=== PATIENT | female | born 1950 | race Caucasian/White ===

== ENCOUNTER → 2016-11-29 | Day surgery (SDC) | payer OTHER ==
[~2016-11-29] VITALS: Ht 175.3 cm; Wt 117.9 kg
[~2016-11-29] MED LIST: ACETAMINOPHEN-1 EAC3 PO; ATORVASTATIN CA10 M1 PO; ATORVASTATIN CA10 MG PO; AUGMENTIN 500-1 EACH PO; CALCIUM + D 6001 TAB PO; CALCIUM 500 +1 EAC5 PO; CIPROFLOXACIN500 M2 PO; EPIPEN0.3 MG/0.1 IM; IPRATROPIU0.2 MG/1 M INH; MELOXICAM7.5 M1 PO; MELOXICAM7.5 MG PO; OMEPRAZOLE40 M1 PO; OMEPRAZOLE40 MG PO; PREDNISONE50 MG PO; PROAIR HFA0.09 MG/Ac PO; PROAIR HFA8.5 GM INH; SYMBICORT 16010.2 GM INH; TYLENOL #31 TAB PO; VANCO 1 GR1 GM/250 M IV; VITAMIN C1000 M1 PO; VITAMIN C250 M3 PO
--- NOTE | 2016-11-29 19:03 | Operative Report ---
Operative/Inv Procedure Report Surgery Date: 11/29/16 Name of Procedure: Debridement and skin graft to his left leg with application of wound VAC wounds and wound VAC approximately 20 cm biopsy soft tissue separate and distinct to rule out the presence of malignancy Pre-Operative Diagnosis: Chronic open wound secondary to venous insufficiency Post-Operative Diagnosis: Same Estimated Blood Loss: scant Surgeon/Favor Maker: CHICO RODRIGUES,LORRIE Morgan Anesthesia: moderate sedation Operative/Procedure Note Note: The patient was counseled in regards to the procedure the alternatives the risks and expected outcomes as relates to her request for surgical intervention to skin graft to chronic wounds of the left lower extremity. We talked about the risk of infection bleeding pain and numbness and partial complete loss of the graft. We talked about donor site complications as well. Patient was taken to the operating room placed supine on the table. Intravenous sedation and antibiotics were given. The left lower extremity was prepped and draped in usual sterile fashion. Full-thickness debridement around the 2 wounds the left anterior and left medial malleoli region was debrided to anterior lesion down to periosteum without evidence of purulence or overt necrosis. This was curettaged free of the cavity tissues. A drill excision was then carried out of the wound of the left anterior leg. At some points a concern for malignancy was identified and a portion of the wound bed was sent for frozen section analysis is the type of granulation tissue could be consistent with a malignancy. It was negative. Developed left medial malleoli wound which had a dense fibrotic base but was debrided down to punctate bleeding. Was harvested from the left anterior thigh and meshed and placed in the wound bed and fixed with a VAC device.
== END ==
LOC: STS 03:12
DX: I87.2 Venous insufficiency (chronic) (peripheral) (principal); L97.329 Non-pressure chronic ulcer of left ankle with unspecified severity; J45.909 Unspecified asthma, uncomplicated; K21.9 Gastro-esophageal reflux disease without esophagitis; M17.0 Bilateral primary osteoarthritis of knee; Z87.891 Personal history of nicotine dependence
CPT/HCPCS: 88304; J0131; J1100; J2250; J2405

== ENCOUNTER 2016-11-30 16:25 | Emergency (ER) | payer OTHER ==
[~2016-11-30] VITALS: Ht 175.3 cm; Wt 117.9 kg
[~2016-11-30 16:25] MED LIST changes: -ACETAMINOPHEN-1 EAC3 PO; -AUGMENTIN 500-1 EACH PO; -CALCIUM 500 +1 EAC5 PO; -EPIPEN0.3 MG/0.1 IM; -IPRATROPIU0.2 MG/1 M INH; -SYMBICORT 16010.2 GM INH; -VITAMIN C250 M3 PO
[2016-11-30 16:36] VITALS: BP 122/79
--- NOTE | 2016-11-30 18:44 | ED ANIMAL BITE/WOUND CHECK ---
History of Present Illness General Chief Complaint: General Adult Stated Complaint: WOUND VAC NOT WORKING,S/P SKIN GRAFT YESTERDAY Source: patient, old records Exam Limitations: no limitations Vital Signs & Intake/Output Vital Signs & Intake/Output Vital Signs Date Time Temp Pulse Resp B/P Pulse O2 O2 Flow FiO2 Ox Delivery Rate 11/30 1828 Room Air 11/30 1636 98.2 68 20 122/79 93 Room Air Allergies Coded Allergies: cephalexin (Intermediate, LINE UP ARM; PER PT IS TAKING MED ORALLY CURRENTLY ) Penicillins (GI UPSET, DOESNT AGREE 11/26/16) ciprofloxacin (UNKNOWN PER PT 11/26/16) doxycycline (UNKNOWN PER PT 11/26/16) gentian malika (From HYDROFERA BLUE READY) (UNKNOWN PER PT 11/26/16) iodine (UMANZOR ULCERS 11/26/16) levofloxacin (From LEVAQUIN) (UNKNOWN PER PT 11/26/16) methylene blue (From HYDROFERA BLUE READY) (UNKNOWN PER PT 11/26/16) promethazine (UNKNOWN PER PT 11/26/16) venom-honey bee (LOCALIZED SWELLING PER PT 11/26/16) Reconcile Medications Albuterol Sulfate (Proair Hfa) 90 MCG HFA.AER.AD 2 PUF INH PRN ASTHMA ( Reported) Atorvastatin Calcium 10 MG TABLET 1 TAB PO DAILY CHOLESTEROL (Reported) Ciprofloxacin HCl 500 MG TABLET 1 TAB PO TID ANTIBIOTIC (Reported) Meloxicam 7.5 MG TABLET 1 TAB PO DAILY PAIN/INFLAMMATION (Reported) Omeprazole 40 MG CAPSULE.DR 1 CAP PO DAILY GI (Reported) Triage Note: TRIAGE: PT TO ER C/C "THE VACUUMS NOT WORKING. I NEED IT FIXED." STATE SHE HAD SKIN GRAFT SURGERY TO ULCER NEAR HER L ANKLE YESTERDAY. STOPPED WORKING AT 11 AM. CALLED THE COMPANY, DR GOLDEN AND VISITING NURSE. WAS ULTIMATELY ADVISED TO COME TO ER FOR EITHER FIXING THE PUMP OR SETTING UP VISITING NURSE SERVICES. Triage Nurses Notes Reviewed? yes HPI: 66-year-old female postop day 1 status post skin grafting left heel and wound VAC Patient to left anterior mid tibial region. She is here at the advice of her plastic surgeon Dr. Suarez because a problem with her wound VAC. She states it is not working properly, is beeping that there is an air leak. She has no other complaints, there is no pain, there is no discharge undressing. She has no fever or flulike illness. (YEE ANDREW) Past History Travel History Traveled to [place] past 21 day No Medical History Any Pertinent Medical History? 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 No (YEE ANDREW) Review of Systems Review of Systems Constitutional: Reports: see HPI. EENTM: Reports: no symptoms. Respiratory: Reports: no symptoms. Cardiovascular: Reports: no symptoms. GI: Reports: no symptoms. Genitourinary: Reports: no symptoms. Musculoskeletal: Reports: no symptoms. Skin: Reports: see HPI. Neurological/Psychological: Reports: no symptoms. Hematologic/Endocrine: Reports: no symptoms. Immunologic/Allergic: Reports: no symptoms. All Other Systems: Reviewed and Negative (YEE ANDREW) Physical Exam Physical Exam General Appearance: well developed/nourished Comments: Well-developed well-nourished no apparent distress. HEENT: Atraumatic, extraocular motion intact Neck: Supple, no lymphadenopathy Back: Nontender Respiratory: No respiratory distress Extremities: No edema, full range of motion Neuro: Alert and oriented x3 Psych: Mood affect normal, normal memory normal judgment. Skin: Warm and dry, no rash on exposed skin Left lower extremity, wrapped in Faraz bandage and Kerlix dressing. The Faraz bandage was removed and the proximal KErlex was removed to evaluate the seal on the wound VAC. Seal appears appropriate, and the machine was hooked up and it started sucking at 125 mmHg. After few minutes it went down to 0. It is on intermittent suction and this was discussed with patient. There is no fluid noted in the tubing or in the wound VAC [place]. The Faraz wrap and Kerlix was then reapplied to the left lower leg. (YEE ANDREW) Progress Differential Diagnosis: abscess, cellulitis, joint infection, tenosysnovitis Plan of Care: Orders Procedure Date/time Status CASE MANAGEMENT CONSULT 11/30 1842 Active Comments: Case management consult was done, visiting nurse set up to check the wound VAC palpation his home. The wound VAC appears to be working appropriately on 5/2 intermittent suction at 125 mmHg while patient is here in the emergency department. We will have the visiting nurse checked this as well, she is instructed not to take off the dressing. (YEE ANDREW) Departure Departure Disposition: HOME OR SELF CARE Condition: Stable Clinical Impression Primary Impression: Visit for wound check Referrals: VÍCTOR RODRIGUES,RAMANDEEP Higginbotham (PCP/Family) Additional Instructions: Visiting nurse will be contacting you to evaluate if the wound VAC is working properly. Follow-up with Dr. Suarez on Friday as scheduled Departure Forms: Customer Survey General Discharge Information (YEE ANDREW) PA/RIPENING ROOM ATTENDANT Co-Sign Statement Statement: ED Attending supervision documentation- [X] I saw and evaluated the patient. I have also reviewed all the pertinent lab results and diagnostic results. I agree with the findings and the plan of care as documented in the PA's/RIPENING ROOM ATTENDANT's documentation. [X] I have reviewed the ED Record and agree with the PA's/RIPENING ROOM ATTENDANT's documentation. [] Additions or exceptions (if any) to the PAs/RIPENING ROOM ATTENDANT's note and plan are summarized below: [] (CAROLINA RODRIGUES,MALINA Prater)
--- NOTE | 2016-11-30 19:46 | NUR ---
Case Mgmnt TSF: I called patient and let her know that I have Hina POPE going out to assess her wound vac tomorrow. I also made her aware to not let them touch her dressing at all. I let her know that Dr. Stiles should be the first one taking down her dressing. She verbalized understanding and will not have them touch her dressing. CM complete.
--- NOTE | 2016-11-30 19:47 | NUR ---
They will not touch her dressing until they have gotten clear orders from Dr. Stiles.
== END 2016-11-30 18:57 ==
LOC: ERH 16:25
DX: T86.828 Other complications of skin graft (allograft) (autograft) (principal)

== ENCOUNTER 2017-01-31 15:57 | Inpatient (IN) | payer OTHER ==
[~2017-01-31] VITALS: Ht 172.7 cm; Wt 121.6 kg
--- NOTE | 2017-01-31 16:18 | NUR ---
TRIAGE: "NOT FEELING WELL" SINCE LAST NIGHT. HAD BIOPSY TO L UPPER LEG BY DR GOLDEN 01/30 TEMP 102.2. UNABLE TO VISUALIZE LEG IN TRIAGE BUT FEELS WARM TO TOUCH AND PAINFUL UPON PALPATION. TACHY 120'S IN TRIAGE. ALSO C/O SOB WITH SINUS CONGESTION, O2 SAT 89-91% ON ROOM AIR. LS DIMINISHED WITH SLIGHT WHEEZING. C/O FEELING DIZZY. LEFT LEG NOTED TO BE VERY RED/PURPLE WITH TIGHT DRESSING IN PLACE. BROUGHT IMMEDIATELY BACK TO ROOM 7 FOR EKG AND EVAL
--- NOTE | 2017-01-31 16:36 | NUR ---
PT TO ER ROOM 7 VIA WHEELCHAIR. PT ASSISTED UP ONTO BED. PTS L LOWER LEG NOTED TO BE SWOLLEN AND RED, WARM TO TOUCH. PTS LEG WRAPPED ON ARRIVAL TO ROOM. PT C/O PAIN TO LLE. DENIES SOB, CHEST PAIN
--- NOTE | 2017-01-31 17:25 | ED AMS/SEIZURE/WEAK/DIZZY ---
History of Present Illness General Chief Complaint: General Adult Stated Complaint: FATIGUE,WEAKNESS,DIFF BREATHING Source: patient Exam Limitations: no limitations Vital Signs & Intake/Output Vital Signs & Intake/Output Vital Signs Date Time Temp Pulse Resp B/P B/P Pulse O2 O2 Flow FiO2 Mean Ox Delivery Rate 02/02 1416 99.8 80 27 128/60 97 Nasal 4.0L Cannula 02/02 0808 94 Nasal 4.0L Cannula 02/02 0800 92 Nasal 4.0L Cannula 02/02 0600 99.3 82 27 138/60 92 Nasal 3.5L Cannula 02/02 0000 Nasal 3.5L Cannula 02/01 2212 100.2 92 24 144/76 94 Nasal 3.5L Cannula 02/01 2103 94 Nasal 4.0L Cannula 02/01 1800 Nasal 4.0L Cannula ED Intake and Output 02/02 0000 02/01 1200 Intake Total 1000 1170 Output Total 1000 350 Balance 0 820 Intake, IV 350 810 Intake, Oral 650 360 Output, Urine 1000 350 Allergies Coded Allergies: cephalexin (Intermediate, LINE UP ARM; PER PT IS TAKING MED ORALLY CURRENTLY ) Penicillins (GI UPSET, DOESNT AGREE 11/26/16) ciprofloxacin (UNKNOWN PER PT 11/26/16) doxycycline (UNKNOWN PER PT 11/26/16) gentian malika (From HYDROFERA BLUE READY) (UNKNOWN PER PT 11/26/16) ibuprofen (From MOTRIN) (STATES "I CANT TAKE MOTRIN" 01/31/17) iodine (UMANZOR ULCERS 11/26/16) levofloxacin (From LEVAQUIN) (UNKNOWN PER PT 11/26/16) methylene blue (From HYDROFERA BLUE READY) (UNKNOWN PER PT 11/26/16) promethazine (UNKNOWN PER PT 11/26/16) venom-honey bee (LOCALIZED SWELLING PER PT 11/26/16) Reconcile Medications Acetaminophen With Codeine (Acetaminophen-Cod #3 Tablet) 300 MG-30 MG TABLET 1 TAB PO PRN PAIN (Reported) Albuterol Sulfate (Proair Hfa) 90 MCG HFA.AER.AD 2 PUF INH PRN ASTHMA ( Reported) Ascorbic Acid (Vitamin C) (Unknown Strength) TABLET (Unknown Dose) PO DAILY SUPPLEMENT (Reported) Atorvastatin Calcium 10 MG TABLET 1 TAB PO DAILY CHOLESTEROL (Reported) Calcium Carbonate/Vitamin D3 (Calcium 500 + D Tablet) (Unknown Strength) TABLET (Unknown Dose) PO DAILY SUPPLEMENT (Reported) Epinephrine (Epipen) 0.3 MG/0.3 ML AUTO.INJCT 0.3 MG IM AD PRN ALLERGIC REACTION (Reported) Meloxicam 7.5 MG TABLET 1 TAB PO DAILY PAIN/INFLAMMATION (Reported) Omeprazole 40 MG CAPSULE. 1 CAP PO DAILY GI (Reported) Triage Note: TRIAGE: "NOT FEELING WELL" SINCE LAST NIGHT. HAD BIOPSY TO L UPPER LEG BY DR GOLDEN 01/30 TEMP 102.2. UNABLE TO VISUALIZE LEG IN TRIAGE BUT FEELS WARM TO TOUCH AND PAINFUL UPON PALPATION. TACHY 120'S IN TRIAGE. ALSO C/O SOB WITH SINUS CONGESTION, O2 SAT 89-91% ON ROOM AIR. LS DIMINISHED WITH SLIGHT WHEEZING. C/O FEELING DIZZY. LEFT LEG NOTED TO BE VERY RED/PURPLE WITH TIGHT DRESSING IN PLACE. BROUGHT IMMEDIATELY BACK TO ROOM 7 FOR EKG AND EVAL Triage Nurses Notes Reviewed? yes HPI: Patient presents for evaluation of dizziness lightheadedness and feeling warm that began abruptly this morning. Patient states that after that she tried to sleep in her chair drink naya william and take Tylenol without much improvement. She states she had surgery yesterday by Dr. Golden who was taking a biopsy of a chronic wound. Patient also noted an onset of redness of her left lower extremity that began today. Patient symptoms were severe but seemed to have resolved. Past History Travel History Traveled to [place] past 21 day No Medical History Any Pertinent Medical History? 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 No Review of Systems Review of Systems Constitutional: Reports: see HPI. EENTM: Reports: no symptoms. Respiratory: Reports: no symptoms. Cardiovascular: Reports: no symptoms. GI: Reports: no symptoms. Genitourinary: Reports: no symptoms. Musculoskeletal: Reports: no symptoms. Skin: Reports: see HPI. Neurological/Psychological: Reports: no symptoms. Hematologic/Endocrine: Reports: no symptoms. Immunologic/Allergic: Reports: no symptoms. All Other Systems: Reviewed and Negative Physical Exam Physical Exam General Appearance: sEE BELOW Comments: Gen.: Well-nourished, well-developed, no acute respiratory distress. Head: Normocephalic, atraumatic. Eyes: Normal inspection bilaterally Ears: Normal inspection bilaterally Nose: Normal inspection, nasal cannula in place Throat/mouth : Moist mucosa Neck: Supple, full range of motion, no goiter Heart: Regular rate and rhythm Lungs: Scattered end expiratory wheezes with otherwise good air entry Back: Normal range of motion Extremities: Left lower extremity: 2+ lower extremity edema with erythema and violaceous discoloration. Chronic wound over the medial aspect of the ankle. Neurologic: Cranial nerves grossly intact, speech is clear Skin: warm and dry Psychiatric: Calm, cooperative, no apparent delusions or hallucinations Core Measures ACS in differential dx? No CVA/TIA Diagnosis: No Severe Sepsis Present: No Septic Shock Present: No Progress Differential Diagnosis: CELLULITIS, OCCULT INFECTION, DEHYDRATION, ELECTROLYTE ABNORMALITY Plan of Care: Orders Procedure Date/time Status CBC WITHOUT DIFFERENTIAL 02/03 600 Active BASIC ELECTROLYTES PLUS BUN&CR 02/03 600 Active SPECIMEN TO BE OBTAINED 02/02 1211 Active C-REACTIVE PROTEIN 02/02 0636 Complete Therapeutic Activities 02/02 UNK Complete PT EVAL LOW COMPLEX 20 MIN 02/02 UNK Complete Wound Care/Dressing 02/02 UNK Active MISSING MEDICATION FORM 02/02 UNK Active NUTRITIONAL CONSULT 02/02 UNK Active Transfer Disposition 02/01 1759 Active Current Medications Sig/Pop Start time Last Medication Dose Stop Time Status Admin Budesonide/ 2 PUF BID 02/02 1210 CAN Formoterol Fumarate (Symbicort) Methyl Salicylate 1 EYAD Q6-PRN PRN 02/02 1200 AC 02/02 (Analgesic Rodessa) 1253 Enoxaparin Sodium 40 MG DAILY 02/02 1000 AC 02/02 (Lovenox) 0815 Nystatin 1 EYAD TID PRN 02/01 1415 AC (Mycostatin) Ipratropium [place] 2.5 ML TID 02/01 1047 AC 02/02 (Atrovent) 1449 Albuterol Sulfate 3 ML TID 02/01 1046 AC 02/02 (Proventil) 1449 Atorvastatin Calcium 10 MG DAILY 02/01 1000 AC 02/02 (Lipitor) 0805 Budesonide/ 2 PUF BID 02/01 1000 AC 02/02 Formoterol Fumarate 0803 (Symbicort) Vancomycin HCl 1,500 MG Q12 02/01 1000 AC 02/02 Sodium Chloride 250 ML 1040 (Normal Saline 0.9%) Omeprazole 40 MG DAILY AC 02/01 0700 AC 02/02 (Prilosec) 0623 Clindamycin 600 MG IQ8 02/01 0000 AC 02/02 (Cleocin) 1556 Dextrose/Water 50 ML (D5W) Acetaminophen 650 MG Q6P PRN 01/31 2345 AC 01/31 (Tylenol) 2357 Albuterol Sulfate 2 PUF Q4 HRS NEEDED PRN 01/31 234 AC (Ventolin) Oxycodone/ 1 TAB Q6 PRN 01/31 234 AC Acetaminophen (Percocet) Oxycodone/ 2 TAB Q6P PRN 01/31 234 AC Acetaminophen (Percocet) Laboratory Tests 02/02/17 0636: Anion Gap 9, Estimated GFR 45 L, Glucose 106 H, Calcium 7.9 L, Phosphorus 4.1 , Magnesium 2.1, Total Bilirubin 0.6, AST 27, ALT 24, C-Reactive Prot, Quant > 9 H, C-React Prot High Sens > 15.0 H, Albumin 2.8 L, CBC w Diff MAN DIFF ORDERED, RBC 4.10 L, MCV 93.3, MCH 31.1 H, RDW 15.4 H, MPV 10.5 H, Gran % 87.7 H, Lymphocytes % 7.8 L, Monocytes % 4.0, Eosinophils % 0.2, Basophils % 0.3, Absolute Granulocytes 14.0 H, Segmented Neutrophils 81 H, Band Neutrophils 11 H, Absolute Lymphocytes 1.2, Lymphocytes 4 L, Monocytes 4, Absolute Monocytes 0.6, Absolute Eosinophils 0, Absolute Basophils 0, Platelet Estimate VERIFIED BY SMEAR, Anisocytosis 1+, PUBS MCHC 33.4, ESR Westergren 85 H, Vancomycin Trough 18.9 Diagnostic Imaging: Discussed w/RAD: Radiology Read. CXR Impression: PATIENT: CON VARGAS PRESENT AGE: 66 PATIENT ACCOUNT NO: [id number] : 52 LOCATION: ER ORDERING PHYSICIAN: ANHTONY MANRIQUEZ MD SERVICE DATE: 01/31/17 EXAM TYPE: RAD - XRY-PORTABLE CHEST XRAY EXAMINATION: CHEST 1 VIEW CLINICAL INFORMATION: Weakness, dizziness. COMPARISON: 08/20/2016. TECHNIQUE: An AP view of the chest is provided. FINDINGS : The cardiac silhouette is stable. The mediastinal and hilar contours are unremarkable. There are neither pleural effusions nor pneumothoraces. There are no consolidations. The osseous structures are unremarkable. IMPRESSION: No evidence for acute disease. DICTATED BY: YAJAIRA FORTE MD DATE/TIME DICTATED:1736 SMALL ENGINE TECHNICIAN:MONICA DATE/TIME TRANSCRIBED:01/31/171736 CONFIDENTIAL, DO NOT COPY WITHOUT APPROPRIATE AUTHORIZATION. <Electronically signed in Other Vendor System> SIGNED BY: YAJAIRA FORTE MD 01/31/171741 Initial ED EKG: SINUS TACHYCARDIA,RATE 106. Prior EKG: unchanged (ASIDE FROM RATE) Departure Departure Disposition: STILL A PATIENT Condition: Stable Clinical Impression Primary Impression: Left leg cellulitis Referrals: VÍCTOR RODRIGUES,RAMANDEEP Higginbotham (PCP/Family) Departure Forms: Customer Survey General Discharge Information Admission Note Spoke With: MAHSA RODRIGUES,MYRON Mckenzie Documentation of Exam: Documentation of any treatments & extenuating circumstances including Concerns Regarding Discharge (functional status, medication knowledge or non-compliance, living conditions, etc.) that warrant an admission rather than observation: Patient's physical examination is consistent with a left lower extremity cellulitis resulting in a high fever and high white blood cell count. The patient meets criterion for severe sepsis placing her at risk of septic shock and . I do not feel she is a good candidate for outpatient management given this and the fact that the pain swelling and cellulitis of the left leg has compromised her functional capacity, she would likely be unable to comply with outpatient treatment plan. She would most certainly return in worse clinical condition. I feel she requires hospitalization for aggressive management with IV antibiotics and close clinical monitoring of her cellulitis vital signs and white blood cell count. Infectious disease consultation should be obtained. Blood culture results should be followed and treated accordingly. This patient will require a multiple day hospitalization.
[2017-01-31] MEDS ORDERED: VITAMIN C250 M3 PO (17:33)
[2017-01-31] MEDS ORDERED: CALCIUM 500 +1 EAC5 PO (17:33)
[2017-01-31] MEDS ORDERED: ACETAMINOPHEN-1 EAC3 PO (17:33)
[2017-01-31] MEDS ORDERED: EPIPEN0.3 MG/0.1 IM (17:34)
--- NOTE | 2017-01-31 17:42 | RADIOLOGY REPORT ---
EXAMINATION: CHEST 1 VIEW CLINICAL INFORMATION: Weakness, dizziness. COMPARISON: 08/20/2016. TECHNIQUE: An AP view of the chest is provided. FINDINGS: The cardiac silhouette is stable. The mediastinal and hilar contours are unremarkable. There are neither pleural effusions nor pneumothoraces. There are no consolidations. The osseous structures are unremarkable. IMPRESSION: No evidence for acute disease.
--- NOTE | 2017-01-31 17:56 | NUR ---
IV EST. NORMAL SLAINE INFUSING AT 150ML/HR PER ORDER AT THIS TIME
--- NOTE | 2017-01-31 17:59 | NUR ---
LABS DRAWN AND SENT BY THIS [facility], SST,LAV
[2017-01-31 18:03] LABS: ABSOLUTE BASOPHIL COUNT 0 /CUMM (0.0-0.2); ABSOLUTE EOSINOPHIL COUNT 0 /CUMM (0.0-0.7); ABSOLUTE MONOCYTE COUNT 0.5 /CUMM (0.10-0.60); EOSINOPHIL % 0 % (0-5); RED BLOOD CELL CT 4.82 /CUMM (4.20-5.40)
[2017-01-31 18:06] LABS: ABSOLUTE GRANULOCYTE CT 31.4 /CUMM (1.4-6.5); ABSOLUTE LYMPH COUNT 0.8 /CUMM (1.2-3.4); BASOPHIL % 0.1 % (0.0-2.0); GRANULOCYTE % 96.2 % (42.2-75.2); HEMATOCRIT 44.8 % (37-47); MEAN CORPUSCULAR HGB 31.3 PG (27.0-31.0); MEAN CORPUSCULAR HGB CONC 33.6 G/DL (33.0-37.0); MEAN CORPUSCULAR VOLUME 92.9 FL (81.0-99.0); MEAN PLATELET VOLUME 9.5 FL (7.4-10.4); PLATELET COUNT 179 /CUMM (130-400); RBC DISTRIBUTION WIDTH 15.2 % (11.5-14.5)
[2017-01-31 18:08] LABS: WHITE BLOOD CELL COUNT 32.6 /CUMM (4.8-10.8)
--- NOTE | 2017-01-31 18:08 | NUR ---
CRITICAL TEST RESULTS [id number] CON VARGAS 66 F TESTS AND RESULTS: WBC 32.6 Results received and read back by: MIRELA PRATT Results received date and time: 01/31/17 1808 The following provider was notified of the results, and read the results back: DR MANRIQUEZ Notified date and time: 01/31/17 at 1806
--- NOTE | 2017-01-31 18:28 | NUR ---
IV CLEOCIN INFUSING PER ORDER AT THIS TIME
--- NOTE | 2017-01-31 18:56 | NUR ---
LACTIC DRAWN AND SENT BY THIS [facility]./
--- NOTE | 2017-01-31 19:08 | NUR ---
ASSUMED CARE OF PT PER RN SANTINO. PT RESTING ON STRETCHER WITH RR, WILL CONTINUE TO MONITOR, CALL MANRIQUEZ WITHIN REACH
--- NOTE | 2017-01-31 19:57 | History & Physical ---
PEPITO DELA CRUZ MD 01/31/171956: General Information and HPI MD Statement: I have seen and personally examined CON VARGAS and documented this H&P. The patient is a 66 year old F who presented with a patient stated chief complaint of leg pain and erythema. Source of Information: patient, old records Exam Limitations: no limitations History of Present Illness: Ms. Vargas is a pleasant 66 year old female with PMH GERD, morbid obesity, asthma, previous strep a and staph aureus cellulitis and non-healing left leg ulcer followed by Dr. Stone Stiles MD and Dr. Clint Hernandez MD who presents with a one day history of left lower extremity erythema, swelling and non-healing ulcer. According to the patient, yesterday she had a scheduled biopsy of this left lower extremity non-healing ulcer by Dr. Go MD. Then, upon wakening this morning she noted severe erythema of the left lower extremity extending to the upper littlejohn with serous, non-bloody drainage of the ulcer. This was also noted worsening of her chronic left lower extremity edema and severe, 7 /10 pain in the whole lower leg exacerbated by ambulation. Associated symptoms include subjective fever, chills, malaise, weakness, decreased appetite (she only had naya william in the last day), occasional dizziness on standing, shortness of breath, cough and wheezing for one day. Con denied vision changes, sore throat, chest pain, palpitations, nausea, vomiting, abdominal pain , dysuria, constipation or blood in her stool. Of note, patient reports that she previously had an episode of cellulitis following graft procedure of her left leg and she admits that her symptoms now are very similar to those when she had cellulitis. Con also reports she previously had a PICC line for this issue and used vancomycin for about one month (with which she developed generalized hives. Con sees Dr. Mary MD and Dr. Go MD for these ulcerations. Social history is significant for greater than 40 year history of tobacco abuse , currently using electronic cigarettes. She denies alcohol or illicit drug use. Family history is significant for a father who passed from cancer and a mother with scleroderma; Con's sister recently passed due to ETOH abuse. Con lives at home with her cat and ambulates with a cane. Allergies/Medications Allergies: Coded Allergies: cephalexin (Intermediate, LINE UP ARM; PER PT IS TAKING MED ORALLY CURRENTLY ) Penicillins (GI UPSET, DOESNT AGREE 11/26/16) ciprofloxacin (UNKNOWN PER PT 11/26/16) doxycycline (UNKNOWN PER PT 11/26/16) gentian malika (From HYDROFERA BLUE READY) (UNKNOWN PER PT 11/26/16) ibuprofen (From MOTRIN) (STATES "I CANT TAKE MOTRIN" 01/31/17) iodine (UMANZOR ULCERS 11/26/16) levofloxacin (From LEVAQUIN) (UNKNOWN PER PT 11/26/16) methylene blue (From HYDROFERA BLUE READY) (UNKNOWN PER PT 11/26/16) promethazine (UNKNOWN PER PT 11/26/16) venom-honey bee (LOCALIZED SWELLING PER PT 11/26/16) Home Med list Acetaminophen With Codeine (Acetaminophen-Cod #3 Tablet) 300 MG-30 MG TABLET 1 TAB PO PRN PAIN (Reported) Albuterol Sulfate (Proair Hfa) 90 MCG HFA.AER.AD 2 PUF INH PRN ASTHMA ( Reported) Ascorbic Acid (Vitamin C) (Unknown Strength) TABLET (Unknown Dose) PO DAILY SUPPLEMENT (Reported) Atorvastatin Calcium 10 MG TABLET 1 TAB PO DAILY CHOLESTEROL (Reported) Calcium Carbonate/Vitamin D3 (Calcium 500 + D Tablet) (Unknown Strength) TABLET (Unknown Dose) PO DAILY SUPPLEMENT (Reported) Epinephrine (Epipen) 0.3 MG/0.3 ML AUTO.INJCT 0.3 MG IM AD PRN ALLERGIC REACTION (Reported) Meloxicam 7.5 MG TABLET 1 TAB PO DAILY PAIN/INFLAMMATION (Reported) Omeprazole 40 MG CAPSULE. 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 Home Who Do You Live With? self Services at Home: None Primary Language: Cook Islander Smoking Status: Current Everyday Smoker ETOH Use: denies use Illicit Drug Use: denies illicit drug use Living Will? yes Functional Ability ADLs Independent: dressing, eating, toileting, bathing. Ambulation: cane IADLs Independent: shopping, housework, finances, food prep, telephone, transportation , medication admin. Sexual History Sexually Active No Review of Systems Review of Systems Constitutional: Reports: chills, fever, malaise, weakness. Denies: diaphoresis. EENTM: Denies: blurred vision, visual changes, nasal congestion, throat pain. Cardiovascular: Reports: peripheral edema. Denies: chest pain, palpitations. Respiratory: Reports: cough, short of breath, wheezing. Denies: hemoptysis, sputum production. GI: Denies: abdominal pain, bloating, constipation, diarrhea, nausea, vomiting. Genitourinary: Denies: dysuria, hematuria. Musculoskeletal: Reports: joint pain (LLE, worse on ambulation). Skin: Reports: change in skin color, erythema, lesions. Neurological/Psychological: Denies: confusion, headache, numbness, paresthesia, unable to move lower ext. Hematologic/Endocrine: Denies: bruising, bleeding. Immunologic/Allergic: Denies: splenectomy. All Other Systems: Reviewed and Negative Exam & Diagnostic Data Last 24 Hrs of Vital Signs/I&O Vital Signs Date Time Temp Pulse Resp B/P B/P Pulse O2 O2 Flow FiO2 Mean Ox Delivery Rate 01/31 1858 101.0 116 20 132/86 91 Room Air 01/31 1644 101.8 01/31 1644 101.8 01/31 1614 102.2 01/31 1611 102.2 120 22 120/82 89 Room Air Physical Exam General Appearance Alert, Oriented X3, Cooperative, No Acute Distress Skin Severe erythema of left lower extremity to upper littlejohn, 1 ulcer anterior littlejohn, 1 ulcer medial malleolus left foot Skin Temp/Moisture Exam: Warm/Dry Sepsis Skin Exam (color): Normal for Ethnicity HEENT Atraumatic, PERRLA, EOMI Neck Supple, +2 Carotid Pulse wo Bruit Lymphatic Cervical nl Cardiovascular Regular Rate, Normal S1, Normal S2 Lungs Diffuse wheezing all lung rocha Abdomen Normal Bowel Sounds, Soft, No Tenderness Neurological Strength at 5/5 X4 Ext, Normal Tone, Sensation Intact Extremities No Clubbing, No Cyanosis, 2-3+ edema of bilateral lower extremities, L>R Vascular Normal Pulses, Pulses Symmetrical Sepsis Peripheral Pulse Location: Dorsalis Pedis Sepsis Peripheral Pulse Exam: Normal Sepsis Cap Refill Exam: <2 Sec Last 24 Hrs of Labs/Fernando: Laboratory Tests 01/31/17 2138: Lactic Acid Pending 01/31/17 1854: Lactic Acid 1.1 01/31/17 1755: Anion Gap 11, Estimated GFR 56 L, BUN/Creatinine Ratio 24.0, Glucose 122 H, Calcium 8.9, Total Bilirubin 1.1, AST 22, ALT 27, Alkaline Phosphatase 146 H, Creatine Kinase 68, Total Protein 7.2, Albumin 3.6, Globulin 3.6, Albumin/ Globulin Ratio 1.0 L, CBC w Diff MAN DIFF ORDERED, RBC 4.82, MCV 92.9, MCH 31.3 H, RDW 15.2 H, MPV 9.5, Gran % 96.2 H, Lymphocytes % 2.3 L, Monocytes % 1.4 L, Eosinophils % 0, Basophils % 0.1, Absolute Granulocytes 31.4 H, Segmented Neutrophils 83 H, Band Neutrophils 9 H, Absolute Lymphocytes 0.8 L, Lymphocytes 5 L, Monocytes 3, Absolute Monocytes 0.5, Absolute Eosinophils 0, Absolute Basophils 0, Platelet Estimate ADEQUATE, Normochromic RBCs VERIFIED, Poikilocytosis 2+, Stomatocytes 2+, PUBS MCHC 33.6 Microbiology 01/31 1755 BLOOD: Blood Culture - RECD 01/31 1740 BLOOD: Blood Culture - RECD 01/31 1714 URINE ROUT: Urine Culture - ORD Diagnostic Data EKG Results None. CXR Results IMPRESSION: No evidence for acute disease. Assessment/Plan Assessment: Ms. Vargas is a pleasant 66 year old female with PMH GERD, asthma, morbid obesity, previous strep a and staph aureus cellulitis and non-healing left leg ulcer followed by Dr. Stone Stiles MD and Dr. Clint Hernandez MD who presents with a one day history of left lower extremity erythema, swelling and non-healing ulcer. Patient had a biopsy of her left extremity non-healing ulcer yesterday and this morning woke up with severe pain, erythema, worsening of her swelling of her left leg and generalized malaise. She also noted decreased appetite, subjective fever, chills and shortness of breath with cough that occured suddenly this AM. In the ED: Vital signs showed T 101.1, HR 116, BP 132/86, RR 20 and O2 saturation of 91% RA. Labs were significant for WBC 32.6, 96% granulocytes, 9 bands, Na 133, Cl 97, BUN 24, Glu 122, Lactate 1.1 up to 2.6, Alk phos 146, trop 0.01. CXR was WNL. EKG showed ST at HR 106, QTC 431. Patient is admitted to the ICU and the following is the management: 1. Sepsis secondary to left lower extremity cellulitis * Patient tachycardic, febrile to 101.6 and source of infection is left lower extremity ulcer with overlaying cellulitis * Jaeger culture, monitor for fevers * Patient received clindamycin and vancomycin in the emergency room * Infectious disease specialist Dr. Anna,consulted and suggested continuing vancomycin and clindamycin for now as well as obtaining left lower extremity CT scan to look for air, CPK * Previous culture from Dr. Stiles's office showing group A strep, concern for necrotizing fasciitis * Plastic surgery covering physician Dr. Kannan MD contacted and will make Dr. Stiles aware of admission * General surgery consult placed due to concern for necrotizing fasciitis, follow up recommendations * IV normal saline at 125 cc/h * Trend lactate * Lower extremity doppler to rule out DVT; will order a 1 time dose of therapeutic lovenox for now and if results are +, continue this * Consider consult with Dr. Hernandez in AM as he sees patient as an outpatient for non-healing ulcers * Elevate legs * Monitor CBC daily 2. Acute hypoxic respiratory failure in the setting of asthma * Patient noted to drop her oxygen saturations to 85% on room air, placed on 3 L NC * DDx: Asthma exacerbation, PE, fluid overload?, less likely allergic reaction but keep on differential due to extensive allergy list * Provide supplemental O2 to maintain O2 sats >92% * [place] evaluation * No steroids for now * CXR x 2 shows no signs of fluid overload, no pathology noted * Follow up troponin/EKG 3. Hyponatremia * Na 133, possibly hypovolemic in the setting of sepsis? * IV NS at 125 cc/h * Monitor BEP and electrolytes daily 4. GERD * Continue omeprazole daily 5. HLD * Continue statin if CPK WNL DNR/DNI (will accept a central line) Heart Healthy Diet Mild pain pathway DVTP: SC lovenox As Ranked By This Provider Problem List: 1. Left leg cellulitis 2. Sepsis 3. Leukocytosis 4. Leg ulcer, left Core Measures/Miscellaneous Acute Coronary Syndrome ACS Diagnosis: No Cerebrovascular Accident CVA/TIA Diagnosis: No Congestive Heart Failure CHF Diagnosis: No Venous Thromboembolism VTE Risk Factors: Acute medical illness, Age > 40, Obesity, Surgery [facility] prophylaxis d/t: Suspected DVT of LE, Vascular insuff of limb No VTE Pharm Prophylaxis d/t: No contraindications VTE Diagnosis: No VTE Type: NONE VTE Confirmed by (Test): NONE Severe Sepsis Severe Sepsis Present: No Septic Shock Septic Shock Present: No Miscellaneous Documentation Attending Case Discussed With: MYRON BRAGG MD Primary Care Physician: RAMANDEEP RENEE MD Patient sees these Specialists Dr. Mary MD wound care Dr. Go MD plastics Level of Patient Care: Critical Care (CRI) MYRON BRAGG MD 01/31/173: Attending MD Review Statement Attending Statement Attending MD Statement: examined this patient, discuss w/resident/PA/GLUING CREW LEADER, agreed w/resident/PA/GLUING CREW LEADER, discussed with family, reviewed EMR data (avail), discussed with nursing, discussed with case mgmt, reviewed images, amended to note Attending Assessment/Plan: This is a lady with significant morbid obesity who is had chronic venous insufficiency and chronic left lower extremity wound followed by wound care has had biopsy and debridement of her left lower extremity by plastic surgery yesterday. In's this morning she suddenly developed redness and warmth in her leg. Since then she is now being admitted at significant cellulitis of the leg with a big wound in the leg. Past history as noted above She does have chronic venous insufficiency and chronic edema and the she did have debridement and skin graft to the left leg with application of wound VAC with 20 cm biopsy soft tissue separate and distinct to rule out presence of malignancy for a chronic open wound secondary to venous insufficiency. She has had multiple cellulitis with long courses of antibiotics in the past and has had vancomycin before. Since admission she did not have any hemodynamic compromise and she was febrile to 102. She was complaining of leg pain and leg swelling. Other history as noted above Physical exam Gen.: Well-nourished, well-developed, no acute respiratory distress. Head: Normocephalic, atraumatic. Eyes: Normal inspection bilaterally Ears: Normal inspection bilaterally Nose: Normal inspection, nasal cannula in place Throat/mouth : Moist mucosa Neck: Supple, full range of motion, no goiter Heart: Regular rate and rhythm Lungs: Scattered end expiratory wheezes with otherwise good air entry Back: Normal range of motion Extremities: Left lower extremity: 2+ lower extremity edema with erythema and violaceous discoloration. Chronic wound over the medial aspect of the ankle. Neurologic: Cranial nerves grossly intact, speech is clear Skin: warm and dry Psychiatric: Calm, cooperative, no apparent delusions or hallucinations IMPRESSION This is a lady with chronic lower extremity venous ulcer, chronic edema of the leg, morbid obesity, recent surgery to the lower extremity with wound VAC placement and graft done by Dr. Stone Stiles now comes in with Significant lower extremity left-sided cellulitis in a lady with chronic left sided venous insufficiency and peripheral vascular disease (hig white count, normal gap and lactic acid, with sig fever)- pt growing strep A from the or Multiple antibiotic allergies including penicillin Significant leukocytosis and fever History of asthma with no sig bronchospasm when i saw her Morbid obesity Hyponatremia Previous history of strep a and staph aureus cellulitis with recent strep a and staph aureus in the culture with heavy growth of's beta strep a. Rule out DVT as she does have lower extremity edema No clinical evidence suggestive of necrotizing fasciitis RECOMMENDATION Intravenous fluids Continue intravenous clindamycin as she has had multiple allergies to penicillin and patient is growing strep a Vancomycin Nebs duoneb No steroids Infectious disease consult Please call Dr. Suarez service and inform him about the patient's admission and please call general surgery to see the patient mabel today to eval for necrotizing fascitis Keep the leg elevated Rpt cxr and leg xray to rule out fascitis CPK, troponin Check Lower extremity Doppler and if Doppler is not available today start the patient on Lovenox 1 dose still the Doppler of the lower extremities made available Sugar control DONNA HUNTER 01/31/17 2343: Resident Review Statement Resident Statement: examined this patient, discussed with pricing intern, agreed with pricing intern Other Findings: Patient patient is a 66-year-old morbidly obese female with past medical history significant for peripheral vascular disease with multiple surgeries/vascular procedures/stenting of left lower extremity multiple times in the past, GERD, asthma, previous cellulitis came to the emergency room with chief complaint of left lower extremity redness, fever and chills since morning. Patient had a chronic nonhealing left lower extremity wound which was cultured and also biopsy was taken by Dr. Stiles yesterday. This morning when patient woke up she was very lethargic, feverish, chilly and also noticed swelling and redness of left lower extremity around the area of her biopsy. She admits for having mild nausea but she didn't show up. She was very weak and lethargic with anorexia. She denies any abdominal pain, any urinary complaint, headache but endorses for having some sinus pressure. She uses cane at home for ambulation. Lower extremity culture came back positive for group a strep On admission her vital signs were significant for temperature 102.2, pulse 120, respiratory rate 22, blood pressure 120/82 and she was saturating 89% on room air. Admission labs were WBC count 32.6, hemoglobin 15.1, hematocrit 44.8, platelet count 179, sodium 133, potassium 3.9, chloride 97, BUNs 24, creatinine 1.0, glucose 122, initial lactic acid was 1.1 later on came up to 2.4,, alkaline phosphatase was 146 Chest x-ray was normal didn't show any evidence of cardiopulmonary pathology Lower extremity CAT scan was negative for any continuous edema or focal fluid collection or abscess no evidence of necrotizing fasciitis. Physical examination Patient was alert and oriented but in mild respiratory distress, shivering Head atraumatic Neck supple Chest diffuse wheezing throughout auscultation rocha Heart S1-S2 normal with tachycardia Abdomen soft no organomegaly Extremities showed normal pulses, left lower extremity redness and warmth above ankle to below knee area was marked There is no neurological deficit noted Assessment and plan Patient is 66-year-old female with history of peripheral vascular disease, chronic lower extremity ulcers, status post biopsy/culture taken yesterday for left lower extremity wound came back with fevers chills, shortness of breath and weakness. We will admit patient in ICU for closer monitoring and will take care for the problem Problem list 1. Left lower extremity cellulitis 2. Lower extremity Peripheral vascular disease with stent placement 3. Chronic lower extremity wounds/ulcers is post culture and biopsy which came back positive for beta strep A 4. Hyponatremia 5. leukocytosis 6. Hypoxia Plan 1. Patient was given 2 L of normal saline in emergency department and we will continue maintenance fluids at 125. 2. Chest x-ray showed no evidence of pneumonia or pulmonary edema but she was hypoxic we will consider doing CTA if hypoxia and tachycardia persist to rule out pulmonary embolism 3. As patient is allergic to multiple antibiotics especially penicillin we will start patient on clindamycin and vancomycin for now. Patient was discussed with Dr. Enrique infectious disease specialist and she will see patient in the morning she agreed with send a and Chelo for now. 4. We will do Doppler ultrasound to rule out DVT still Doppler would be done we will give patient a therapeutic dose of Lovenox at 1 g/kg body weight it would be 120 mg subcutaneous once and we will decide tomorrow after Doppler ultrasound need for continuation of Lovenox. 5. We will give patient maintenance IV fluids and will check electrolyte panel in the morning. 6. Plastic surgery Dr. Stiles's services was called and Dr. moreno call us back and a shunt was discussed with him they will see patient most likely over the weekend or on Friday 7. Patient was also seen by surgical PA and currently there was no recommendation for any surgical intervention. 8. Wound consultation in a.m. Patient was about to go see Dr. Gibson today to get Unna boot too sick to keep her appointment. 9. CPK and initial troponins were negative. We will watch patient in ICU for closer monitoring if her blood pressures remained stable we will consider transferring her to general med tomorrow. Heart healthy diet Pharmacological DVT prophylaxis Patient is DNI DNR
--- NOTE | 2017-01-31 20:33 | NUR ---
PT AMBULATED TO COMMODE WITH ASSISTANCE, PT GIVEN CALL MANRIQUEZ WITHIN REACH FOR SAFETY.
--- NOTE | 2017-01-31 20:59 | NUR ---
HOUSE STAFF IN FOR EVAL
--- NOTE | 2017-01-31 21:03 | NUR ---
PT GOING TO ROOM 211-1.
--- NOTE | 2017-01-31 21:45 | NUR ---
PTS LEFT LLE REWRAPPED BY THIS RN
--- NOTE | 2017-01-31 21:55 | NUR ---
SURGICAL MARIO Torres IN FOR EVAL, THIS RN ESTABLISHED IV ACCESS IN LFA#22.
--- NOTE | 2017-01-31 22:01 | NUR ---
PTS 02 SAT 85%, PT REFUSING 02, RESIDENT SEEMA INFORMED.
--- NOTE | 2017-01-31 22:02 | NUR ---
CRITICAL TEST RESULTS [id number] CON VARGAS 66 F TESTS AND RESULTS: LACTIC ACID 2.6 Results received and read back by: STEPHIE GIBBS Results received date and time: 01/31/172202 The following provider was notified of the results, and read the results back: DR BRAGG/ [facility] STAFF Notified date and time: 01/31/17 at 2203
--- NOTE | 2017-01-31 22:02 | RADIOLOGY REPORT ---
EXAMINATION: CHEST 1 VIEW CLINICAL INFORMATION: CHF. Wheezing. COMPARISON: Same day chest radiograph obtained at 1727 hours. TECHNIQUE: An AP view of the chest was obtained at 2144 hours. FINDINGS: The cardiac silhouette is stable. The mediastinal and hilar contours are unremarkable. There are neither pleural effusions nor pneumothoraces. There are no consolidations. The osseous structures are unremarkable. IMPRESSION: No evidence for acute disease.
--- NOTE | 2017-01-31 22:03 | NUR ---
DR BRAGG IN TO SPEAK WITH PT
--- NOTE | 2017-01-31 22:04 | NUR ---
PER DR BRAGG, PT SHOULD BE PLACED ON 2L NC 02 AND TO HOLD THE NS LITER #1 INFUSING AT 150ML/HR. RT CALLED FOR DUO NEB, PT WHEEZING.
--- NOTE | 2017-01-31 22:07 | NUR ---
PT GOING TO ROOM 106-1.
--- NOTE | 2017-01-31 22:08 | NUR ---
PER RESIDENT PEPITO THIS RN WILL HOLD OFF ON ADMINISTERING BENADRYL.
--- NOTE | 2017-01-31 22:18 | NUR ---
PT TO CT SCAN
--- NOTE | 2017-01-31 22:31 | NUR ---
REPORT GIVEN TO EZEKIEL NEGRO, THIS RN WILL TRANSPORT PT TO UNIT AFTER PT RETURNS FROM CT AND A DUO NEB IS ADMINISTERED
--- NOTE | 2017-01-31 22:53 | NUR ---
PT BACK FROM CT SCAN, RT PAGED FOR CELIA FAJARDO.
--- NOTE | 2017-01-31 22:55 | NUR ---
PTS BS 94
--- NOTE | 2017-01-31 23:02 | NUR ---
RT IN RM TO ADMINISTER DUO NEB
--- NOTE | 2017-01-31 23:09 | CT SCAN REPORT ---
EXAMINATION: CT LOWER EXTREMITY WITH CONTRAST, left lower extremity CLINICAL INFORMATION: Redness the upper calf down to the ankle. Cellulitis. Infected with Streptococcus A. Concern for necrotizing fasciitis COMPARISON: None TECHNIQUE: IV contrast was given Axial images obtained from the knee through the foot. Coronal and sagittal reformatted images are performed at the CT scanner DLP: 1912.05 mGy-cm FINDINGS: There is no evidence of necrotizing fasciitis. There is mild subcutaneous edema. There is no focal fluid collection. There is no abscess. No air in the soft tissue. The intermuscular fat planes are maintained. No osseous abnormality. IMPRESSION: Subcutaneous edema. No focal fluid collection or abscess. No evidence of necrotizing fasciitis.
--- NOTE | 2017-01-31 23:29 | PN- General Surgery ---
See Addendum Subjective Subjective: Surgery was asked to evaluate patient's left lower leg infection, to evaluate for cellulitis or deep space abscess. I have seen and evaluated the patient in the emergency department, patient had a biopsy of a chronic nonhealing wound bed Stone Stiles MD yesterday in his office. She has had intermittent cellulitis and nonhealing wound problems in her legs the past 6 months after a vascular procedure on her leg, she has required a biopsy previously to evaluate for skin cancer due to the chronicity of the nonhealing wounds in the past and this was negative. She's had multiple bouts of cellulitis, she's also had a split thickness skin graft to the left lower leg. Her current ulcer is in the shaft pretibial region anterior aspect. A biopsy was taken yesterday, sent for culture which shows diphtheriod and Streptococcus group A, I have reviewed her culture. She presented with feeling generalized weakness today, chills, fever and increased pain redness and swelling in the left lower leg. She is being admitted to the medical service for possible sepsis, she meets SIRS criteria requiring IV antibiotics and close monitoring in the intensive care unit. Objective Vital Signs and I&Os Vital Signs Date Time Temp Pulse Resp B/P B/P Pulse O2 O2 Flow FiO2 Mean Ox Delivery Rate 01/31 2304 92 Nasal 2.0L Cannula 01/31 2211 18 91 Nasal 3.0L Cannula 01/31 2202 101.6 102 18 173/70 86 Room Air 01/31 1858 101.0 116 20 132/86 91 Room Air 01/31 1644 101.8 01/31 1644 101.8 01/31 1614 102.2 01/31 1611 102.2 120 22 120/82 89 Room Air Physical Exam: Well-developed well-nourished obese female, looks stated age, no apparent distress. HEENT: Atraumatic, extraocular motion intact Neck: Supple, no lymphadenopathy Respiratory: Mild increased respiratory rate and effort Heart: Tachycardic Abdomen: Obese Extremities: Right lower extremity benign Left lower extremity with severe erythema circumferentially to the lower leg sparing the foot. The erythema warmth swelling and tenderness extends from the tibial tubercle region down to the ankle joint and circumferentially encompassing the lower leg. Erythema is most concentrated around the central midportion of the anterior tibia with there is an approximate 4 x 3.5 cm open wound with small amount of mucopurulent and granulation tissue present in the wound, this is where the biopsy was taken from according to the patient. Exposed fascia is noted, no exposed bone. There is significant warmth erythema swelling and induration around the ulceration. There is a smaller 1 cm chronic nonhealing wound at the medial ankle region. Dorsal pedal pulses are intact 2+ There is faint lymphangitic streaking noted to the medial thigh and into the groin with mild tenderness in this area. The significant erythema of the lower leg has been outlined in ink by the emergency room staff No significant calf tenderness and a negative Homans sign Neuro: Alert and oriented x3 Psych: Mood affect normal, normal memory normal judgment. Results Last 48 Hours of Labs: Laboratory Tests 01/31 01/31 01/31 2138 1854 1755 Chemistry Sodium (137 - 145 mmol/L) 133 L Potassium (3.5 - 5.1 mmol/L) 3.9 Chloride (98 - 107 mmol/L) 97 L Carbon Dioxide (22 - 30 mmol/L) 26 Anion Gap (5 - 16) 11 BUN (7 - 17 mg/dL) 24 H Creatinine (0.5 - 1.0 mg/dL) 1.0 Estimated GFR (>60 ml/min) 56 L BUN/Creatinine Ratio (7 - 25 %) 24.0 Glucose (65 - 99 mg/dL) 122 H Lactic Acid (0.7 - 2.1 mmol/L) 2.6 H 1.1 Calcium (8.4 - 10.2 mg/dL) 8.9 Total Bilirubin (0.2 - 1.3 mg/dL) 1.1 AST (14 - 36 U/L) 22 ALT (9 - 52 U/L) 27 Alkaline Phosphatase (<127 U/L) 146 H Creatine Kinase (30 - 135 U/L) 68 Troponin I (< 0.11 ng/ml) 0.01 Total Protein (6.3 - 8.2 g/dL) 7.2 Albumin (3.5 - 5.0 g/dL) 3.6 Globulin (1.9 - 4.2 gm/dL) 3.6 Albumin/Globulin Ratio (1.1 - 2.2 %) 1.0 L Hematology CBC w Diff MAN DIFF ORDERED WBC (4.8 - 10.8 /CUMM) 32.6 *H RBC (4.20 - 5.40 /CUMM) 4.82 Hgb (12.0 - 16.0 G/DL) 15.1 Hct (37 - 47 %) 44.8 MCV (81.0 - 99.0 FL) 92.9 MCH (27.0 - 31.0 PG) 31.3 H RDW (11.5 - 14.5 %) 15.2 H Plt Count (130 - 400 /CUMM) 179 MPV (7.4 - 10.4 FL) 9.5 Gran % (42.2 - 75.2 %) 96.2 H Lymphocytes % (20.5 - 51.1 %) 2.3 L Monocytes % (1.7 - 9.3 %) 1.4 L Eosinophils % (0 - 5 %) 0 Basophils % (0.0 - 2.0 %) 0.1 Absolute Granulocytes (1.4 - 6.5 /CUMM) 31.4 H Segmented Neutrophils (42.2 - 75.2 %) 83 H Band Neutrophils (0.0 - 5.0 %) 9 H Absolute Lymphocytes (1.2 - 3.4 /CUMM) 0.8 L Lymphocytes (20.5 - 51.1 %) 5 L Monocytes (1.7 - 9.3 %) 3 Absolute Monocytes (0.10 - 0.60 /CUMM) 0.5 Absolute Eosinophils (0.0 - 0.7 /CUMM) 0 Absolute Basophils (0.0 - 0.2 /CUMM) 0 Platelet Estimate (ADEQUATE) ADEQUATE Normochromic RBCs VERIFIED Poikilocytosis 2+ Stomatocytes 2+ PUBS MCHC (33.0 - 37.0 G/DL) 33.6 Recent Imaging Studies: PATIENT: CON VARGAS PRESENT AGE: 66 PATIENT ACCOUNT NO: [id number] : 52 LOCATION: [facility] ORDERING PHYSICIAN: DONNA HUNTER MD SERVICE DATE: 01/31/17 EXAM TYPE: CAT - CT LOWER EXT W IV CONTRAST EXAMINATION: CT LOWER EXTREMITY WITH CONTRAST, left lower extremity CLINICAL INFORMATION: Redness the upper calf down to the ankle. Cellulitis. Infected with Streptococcus A. Concern for necrotizing fasciitis COMPARISON: None TECHNIQUE: IV contrast was given Axial images obtained from the knee through the foot. Coronal and sagittal reformatted images are performed at the CT scanner DLP: 191.05 mGy-cm FINDINGS: There is no evidence of necrotizing fasciitis. There is mild subcutaneous edema. There is no focal fluid collection. There is no abscess. No air in the soft tissue. The intermuscular fat planes are maintained. No osseous abnormality. IMPRESSION: Subcutaneous edema. No focal fluid collection or abscess. No evidence of necrotizing fasciitis. DICTATED BY: EARL HARDY MD DATE/TIME DICTATED:01/31/179 PLANER SETUP OPERATOR:MONICA DATE/TIME TRANSCRIBED:01/31/ Assessment/Plan Assessment/Plan Streptococcus cellulitis left lower extremity after biopsy of chronic nonhealing wound with fever significant leukocytosis at 32,000, bandemia, SIRS criteria and lymphadenitis From a surgical standpoint, there is surgical intervention required at this time. CT scan shows no evidence of necrotizing fasciitis nor is there any significant evidence of necrotizing fasciitis or abscess on exam. Recommend elevation, warm compresses, IV antibiotics per medicine and infectious disease. Case discussed with General surgeon on-call Raman Smart MD will evaluate the patient tomorrow, agrees with plan. Problem List: 1. Left leg cellulitis 2. Leukocytosis 3. Leg ulcer, left
[2017-02-01] VITALS: BP 132/80
--- NOTE | 2017-02-01 | NUR ---
PT A/Ox3 UP FROM ER VIA STRETCHER. PLACED IN BED AND PUT ON MONITOR. PT ON 3L NC LUNGS SOUNDS WITH EXPIRATORY WHEEZING THROUGHOUT. PT NSR- ST ON MONITOR. TEMP 102.2 ORALLY, TYLENOL GIVEN. PT LEFT LEG 2-3+ EDEMA. SKIN RED AND HOT. DRESSING PER PA-C INTACT. LABS CLARIFIED AND TO BE DRAWN. CALL LIGHT AND SAFETY REVIEWED, ALL NEEDS WITHIN REACH.
[2017-02-01 04:58] LABS: ABSOLUTE BASOPHIL COUNT 0 /CUMM (0.0-0.2); ABSOLUTE GRANULOCYTE CT 25.9 /CUMM (1.4-6.5); ABSOLUTE LYMPH COUNT 0.8 /CUMM (1.2-3.4); ABSOLUTE MONOCYTE COUNT 0.2 /CUMM (0.10-0.60); BASOPHIL % 0 % (0.0-2.0); EOSINOPHIL % 0 % (0-5); GRANULOCYTE % 96.5 % (42.2-75.2); HEMATOCRIT 41.9 % (37-47); MEAN CORPUSCULAR HGB 31.2 PG (27.0-31.0); MEAN CORPUSCULAR HGB CONC 33.4 G/DL (33.0-37.0); MEAN CORPUSCULAR VOLUME 93.3 FL (81.0-99.0); MEAN PLATELET VOLUME 9.8 FL (7.4-10.4); PLATELET COUNT 154 /CUMM (130-400); RBC DISTRIBUTION WIDTH 15.3 % (11.5-14.5); RED BLOOD CELL CT 4.49 /CUMM (4.20-5.40); WHITE BLOOD CELL COUNT 26.8 /CUMM (4.8-10.8)
--- NOTE | 2017-02-01 07:27 | PN- Resident CRCU ---
Subjective HPI/CRCU Issues: Ms Platt was seen and examined this morning. She is resting comfortably in bed. Patient states overnight she was able to get some rest. Pain is been well controlled and is currently pain-free. She does endorse mild cough. Non Productive in nature. Denies any sinus tenderness. She denies any fever, chills, nausea, vomiting. 24 Hour Events: T: 102.2 HR: 96-104 ST/SR RR: 20-28 BP: 109/75-153/64 On NC 3.0L Urine output: 350 ml Objective Vital Signs & I&O Last 8 Hrs of Vitals and I&O: Intake & Output 02/01 0800 Intake Total 1170 Output Total 350 Balance 820 Intake, IV 810 Intake, Oral 360 Output, Urine 350 Exam General Appearance: well developed/nourished, no apparent distress, alert, awake Neck: normal inspection Respiratory: normal breath sounds, chest non-tender, no respiratory distress Cardiovascular: regular rate/rhythm Gastrointestinal: normal bowel sounds, soft, non-tender, distention Extremities: normal inspection, normal capillary refill Cranial Nerves: normal hearing, normal speech Skin: intact, Left lower Extremity Erythema, level of mid tibia. Improved since admission (area was marked when patient came in). Non tender. Non Weaping. Skin intact. Left Lower ulcers dressed in Bandage. , Cellulitis Reduced by two fingers. Skin Temp/Moisture Exam: Warm/Dry Current Medications: Current Medications Sig/Pop Start time Last Medication Dose Route Stop Time Status Admin Acetaminophen 650 MG Q6P PRN 01/31 2345 AC 01/31 PO 2357 Acetaminophen 975 MG ONCE ONE 01/31 1615 DC 01/31 PO 01/31 1616 1614 Albuterol Sulfate 3 ML TID 02/01 1046 AC 02/01 INH 1047 Albuterol Sulfate 2 PUF Q4 HRS NEEDED PRN 01/31 2345 AC INH Albuterol Sulfate 3 ML ONCE ONE 01/31 2315 DC 01/31 INH 01/31 2316 2304 Atorvastatin Calcium 10 MG DAILY 02/01 1000 AC 02/01 PO 1050 Budesonide/ 2 PUF BID 02/01 1000 AC 02/01 Formoterol Fumarate INH 1053 Clindamycin 600 MG IQ8 02/01 0000 AC 02/01 Dextrose/Water 50 ML IV 0800 Clindamycin 600 MG ONCE ONE 01/31 1815 DC 01/31 Dextrose/Water 50 ML IV 01/31 1844 1828 Diphenhydramine HCl 25 MG ONCE ONE 01/31 2215 DC IV 01/31 2216 Enoxaparin Sodium 40 MG DAILY 02/01 1000 CAN SC Enoxaparin Sodium 180 MG DAILY 02/01 0900 AC 02/01 SC 1050 Enoxaparin Sodium 120 MG ONCE ONE 01/31 2215 DC 02/01 SC 01/31 2216 0107 Ipratropium [place] 2.5 ML TID 02/01 1047 AC 02/01 INH 1047 Ipratropium [place] 2.5 ML ONCE ONE 01/31 2215 DC 01/31 INH 01/31 221 2300 Ipratropium [place] 2.5 ML ONCE ONE 01/31 2215 CAN INH 01/31 2216 Omeprazole 40 MG DAILY AC 02/01 0700 AC 02/01 PO 0631 Oxycodone/ 1 TAB Q6 PRN 01/31 2345 AC Acetaminophen PO Oxycodone/ 2 TAB Q6P PRN 01/31 2345 AC Acetaminophen PO Sodium Chloride 1,000 ML Q8H 01/31 2200 DC 01/31 IV 2357 Sodium Chloride 1,000 ML ONCE ONE 01/31 1715 DC 01/31 IV 01/31 2354 1756 Vancomycin HCl 1,500 MG Q12 02/01 1000 DC Sodium Chloride 250 ML IV Vancomycin HCl 1,500 MG Q12 02/01 1000 AC 02/01 Sodium Chloride 250 ML IV 1157 Vancomycin HCl 1,500 MG Q12 01/31 2300 CAN Sodium Chloride 250 ML IV Vancomycin HCl 1,000 MG Q12 01/31 2200 DC 01/31 Sodium Chloride 250 ML IV 02/01 0900 2245 Impression/Plan Impression/Problem List Impression: Ms. Platt is a pleasant 66 year old female with PMH GERD, asthma, morbid obesity, previous strep a and staph aureus cellulitis and non-healing left leg ulcer followed by Dr. Stone Stiles MD and Dr. Clint Hernandez MD who presents with a one day history of left lower extremity erythema, swelling and non-healing ulcer. Patient had a biopsy of her left extremity non-healing ulcer yesterday and this morning woke up with severe pain, erythema, worsening of her swelling of her left leg and generalized malaise. She also noted decreased appetite, subjective fever, chills and shortness of breath with cough. In the ED: Vital signs showed T 101.1, HR 116, BP 132/86, RR 20 and O2 saturation of 91% RA. Labs were significant for WBC 32.6, 96% granulocytes, 9 bands, Na 133, Cl 97, BUN 24, Glu 122, Lactate 1.1 up to 2.6, Alk phos 146, trop 0.01. CXR was WNL. EKG showed ST at HR 106, QTC 431. Patient is admitted to the ICU and the following is the management: 1. Sepsis secondary to left lower extremity cellulitis * Patient tachycardic, febrile to 101.6 and source of infection is left lower extremity ulcer with overlaying cellulitis * [place] culture, monitor for fevers * Patient received clindamycin and vancomycin in the emergency room * Infectious disease specialist Dr. Magana: suggested continuing vancomycin and Clindamycin. Lower Extremity CT: Subcutaneous edema. No focal fluid collection or abscess. Based on Culture results may consi de-escalating antibiotics. No evidence of necrotizing fasciitis. * Vancomycin Trough 02/02/2017 * Previous culture from Dr. Stiles's office showing group A strep, concern for necrotizing fasciitis * Plastic surgery covering physician Dr. Kannan MD contacted and will make Dr. Stiles aware of admission * General surgery consult placed due to concern for necrotizing fasciitis, awaiting recommendations * Trend lactate * Lower extremity doppler to rule out DVT; will order a 1 time dose of therapeutic lovenox for now and if results are +, continue this * Consider consult with Dr. Hernandez in AM as he sees patient as an outpatient for non-healing ulcers * Elevate legs * Monitor CBC, ESR, CRP with next blood work 2. Acute hypoxic respiratory failure in the setting of asthma * If Cr is stable CTA in Am 02/02/2017 to rule out PE. * Patient noted to drop her oxygen saturations to 85% on room air, placed on 3 L NC * DDx: Asthma exacerbation, PE, fluid overload?, less likely allergic reaction but keep on differential due to extensive allergy list * Provide supplemental O2 to maintain O2 sats >92% * [place] evaluation * No steroids for now * CXR x 2 shows no signs of fluid overload, no pathology noted 3. Hyponatremia * Na 136, possibly hypovolemic. * IV NS at 125 cc/h--> Discontinued * Monitor BEP and electrolytes daily 4. GERD * Continue omeprazole daily 5. HLD * Continue statin if CPK WNL DNR/DNI (will accept a central line) Heart Healthy Diet Mild pain pathway DVTP: SC lovenox Problem List: 1. Left leg cellulitis 2. Sepsis 3. Leukocytosis 4. Leg ulcer, left Pain Ratin Tomorrow's Labs & Rationales: CBC ICU Bundle ESR/CRP Plan DVT/Prophylaxis: pharmacological
[2017-02-01 08:00] VITALS: BP 138/70
--- NOTE | 2017-02-01 09:44 | PN- Pulmonary ---
Subjective HPI/Critical Care Issues: Doing much better Afebrile Continues to be slightly hypoxemic and wheezing Does complain of mild pain in the leg but that seems to be improving per patient No significant dyspnea per patient she says that most of her breathing is her baseline Vital signs reviewed as noted below SIGNIFICANT DATA lower extremity CT showed subcutaneous edema and no focal fluid collection or abscess no evidence of necrotizing fasciitis Chest x-ray was otherwise unremarkable Other significant data include BUN of 1 creatinine of 19 sodium 136 her lactic acid last night which had gone up did come down to 1.4 her cholesterol was elevated in September white count down to 26 Objective Current Medications: Current Medications Sig/Pop Start time Last Medication Dose Route Stop Time Status Admin Acetaminophen 650 MG Q6P PRN 01/31 2345 AC 01/31 PO 2357 Acetaminophen 975 MG ONCE ONE 01/31 1615 DC 01/31 PO 01/31 161 1614 Albuterol Sulfate 2 PUF Q4 HRS NEEDED PRN 01/31 234 AC INH Albuterol Sulfate 3 ML ONCE ONE 01/31 2315 DC 01/31 INH 01/31 231 2304 Atorvastatin Calcium 10 MG DAILY 02/01 1000 AC PO Clindamycin 600 MG IQ8 02/01 0000 AC 02/01 Dextrose/Water 50 ML IV 0107 Clindamycin 600 MG ONCE ONE 01/31 1815 DC 01/31 Dextrose/Water 50 ML IV 01/31 1844 1828 Diphenhydramine HCl 25 MG ONCE ONE 01/31 2215 DC IV 01/31 221 Enoxaparin Sodium 40 MG DAILY 02/01 1000 CAN SC Enoxaparin Sodium 180 MG DAILY 02/01 0900 AC SC Enoxaparin Sodium 120 MG ONCE ONE 01/31 2215 DC 02/01 SC 01/31 221 0107 Ipratropium [place] 2.5 ML ONCE ONE 01/31 2215 DC 01/31 INH 01/31 221 2300 Ipratropium [place] 2.5 ML ONCE ONE 01/31 2215 CAN INH 01/31 221 Omeprazole 40 MG DAILY AC 02/01 0700 AC 02/01 PO 0631 Oxycodone/ 1 TAB Q6 PRN 01/31 2345 AC Acetaminophen PO Oxycodone/ 2 TAB Q6P PRN 01/31 2345 AC Acetaminophen PO Sodium Chloride 1,000 ML Q8H 01/31 2200 AC 01/31 IV 2357 Sodium Chloride 1,000 ML ONCE ONE 01/31 1715 DC 01/31 IV 01/31 2354 1756 Vancomycin HCl 1,500 MG Q12 02/01 1000 AC Sodium Chloride 250 ML IV Vancomycin HCl 1,500 MG Q12 01/31 2300 CAN Sodium Chloride 250 ML IV Vancomycin HCl 1,000 MG Q12 01/31 2200 DC 01/31 Sodium Chloride 250 ML IV 02/01 0900 2245 Vital Signs & I&O Last 24 Hrs of Vitals and I&O: Laboratory Tests 02/01 02/01 0440 0050 Chemistry Sodium (137 - 145 mmol/L) 136 L Potassium (3.5 - 5.1 mmol/L) 4.0 Chloride (98 - 107 mmol/L) 98 Carbon Dioxide (22 - 30 mmol/L) 27 Anion Gap (5 - 16) 11 BUN (7 - 17 mg/dL) 19 H Creatinine (0.5 - 1.0 mg/dL) 1.0 Estimated GFR (>60 ml/min) 56 L Glucose (65 - 99 mg/dL) 101 H Calcium (8.4 - 10.2 mg/dL) 8.3 L Phosphorus (2.5 - 4.5 mg/dL) 3.8 Magnesium (1.6 - 2.3 mg/dL) 1.7 Total Bilirubin (0.2 - 1.3 mg/dL) 0.9 AST (14 - 36 U/L) 19 ALT (9 - 52 U/L) 24 Albumin (3.5 - 5.0 g/dL) 3.2 L Hematology CBC w Diff MAN DIFF ORDERED WBC (4.8 - 10.8 /CUMM) 26.8 H RBC (4.20 - 5.40 /CUMM) 4.49 Hgb (12.0 - 16.0 G/DL) 14.0 Hct (37 - 47 %) 41.9 MCV (81.0 - 99.0 FL) 93.3 MCH (27.0 - 31.0 PG) 31.2 H RDW (11.5 - 14.5 %) 15.3 H Plt Count (130 - 400 /CUMM) 154 MPV (7.4 - 10.4 FL) 9.8 Gran % (42.2 - 75.2 %) 96.5 H Lymphocytes % (20.5 - 51.1 %) 2.8 L Monocytes % (1.7 - 9.3 %) 0.7 L Eosinophils % (0 - 5 %) 0 Basophils % (0.0 - 2.0 %) 0 L Absolute Granulocytes (1.4 - 6.5 /CUMM) 25.9 H Segmented Neutrophils (42.2 - 75.2 %) 85 H Band Neutrophils (0.0 - 5.0 %) 10 H Absolute Lymphocytes (1.2 - 3.4 /CUMM) 0.8 L Lymphocytes (20.5 - 51.1 %) 4 L Monocytes (1.7 - 9.3 %) 1 L Absolute Monocytes (0.10 - 0.60 /CUMM) 0.2 Absolute Basophils (0.0 - 0.2 /CUMM) 0 Platelet Estimate (ADEQUATE) ADEQUATE Polychromasia 1+ Poikilocytosis 2+ Ovalocytes 1+ Stomatocytes 1+ PUBS MCHC (33.0 - 37.0 G/DL) 33.4 Other Body Source Fld Total RBCs Counted (%) 100 Urines Urine Color (YEL,AMB,STR) YEL Urine Clarity (CLEAR) CLEAR Urine pH (5.0 - 8.0) 6.5 Ur Specific [place] (1.001 - 1.035) 1.010 Urine Protein (NEG,<30 MG/DL) 30 H Urine Ketones (NEG) NEG Urine Nitrite (NEG) NEG Urine Bilirubin (NEG) NEG Urine Urobilinogen (0.1 - 1.0 EU/dl) 0.2 Ur Leukocyte Esterase (NEG) TRACE H Ur Microscopic SEDIMENT EXAMINED Urine RBC (0 - 5 /HPF) 1-3 Urine WBC (0 - 2 /HPF) 3-5 H Ur Epithelial Cells (NONE,FEW) MOD H Urine Bacteria (NEG/NONE) FEW H Urine Hemoglobin (NEG) TRACE-INTACT Urine Glucose (N MG/DL) NEG 02/01 01/31 01/31 01/31 0045 2213 2138 1854 Chemistry Lactic Acid (0.7 - 2.1 mmol/L) 1.4 Cancelled 2.6 H 1.1 01/31 1755 Chemistry Sodium (137 - 145 mmol/L) 133 L Potassium (3.5 - 5.1 mmol/L) 3.9 Chloride (98 - 107 mmol/L) 97 L Carbon Dioxide (22 - 30 mmol/L) 26 Anion Gap (5 - 16) 11 BUN (7 - 17 mg/dL) 24 H Creatinine (0.5 - 1.0 mg/dL) 1.0 Estimated GFR (>60 ml/min) 56 L BUN/Creatinine Ratio (7 - 25 %) 24.0 Glucose (65 - 99 mg/dL) 122 H Calcium (8.4 - 10.2 mg/dL) 8.9 Total Bilirubin (0.2 - 1.3 mg/dL) 1.1 AST (14 - 36 U/L) 22 ALT (9 - 52 U/L) 27 Alkaline Phosphatase (<127 U/L) 146 H Creatine Kinase (30 - 135 U/L) 68 Troponin I (< 0.11 ng/ml) 0.01 Total Protein (6.3 - 8.2 g/dL) 7.2 Albumin (3.5 - 5.0 g/dL) 3.6 Globulin (1.9 - 4.2 gm/dL) 3.6 Albumin/Globulin Ratio (1.1 - 2.2 %) 1.0 L Hematology CBC w Diff MAN DIFF ORDERED WBC (4.8 - 10.8 /CUMM) 32.6 *H RBC (4.20 - 5.40 /CUMM) 4.82 Hgb (12.0 - 16.0 G/DL) 15.1 Hct (37 - 47 %) 44.8 MCV (81.0 - 99.0 FL) 92.9 MCH (27.0 - 31.0 PG) 31.3 H RDW (11.5 - 14.5 %) 15.2 H Plt Count (130 - 400 /CUMM) 179 MPV (7.4 - 10.4 FL) 9.5 Gran % (42.2 - 75.2 %) 96.2 H Lymphocytes % (20.5 - 51.1 %) 2.3 L Monocytes % (1.7 - 9.3 %) 1.4 L Eosinophils % (0 - 5 %) 0 Basophils % (0.0 - 2.0 %) 0.1 Absolute Granulocytes (1.4 - 6.5 /CUMM) 31.4 H Segmented Neutrophils (42.2 - 75.2 %) 83 H Band Neutrophils (0.0 - 5.0 %) 9 H Absolute Lymphocytes (1.2 - 3.4 /CUMM) 0.8 L Lymphocytes (20.5 - 51.1 %) 5 L Monocytes (1.7 - 9.3 %) 3 Absolute Monocytes (0.10 - 0.60 /CUMM) 0.5 Absolute Eosinophils (0.0 - 0.7 /CUMM) 0 Absolute Basophils (0.0 - 0.2 /CUMM) 0 Platelet Estimate (ADEQUATE) ADEQUATE Normochromic RBCs VERIFIED Poikilocytosis 2+ Stomatocytes 2+ PUBS MCHC (33.0 - 37.0 G/DL) 33.6 Microbiology Date/Time Procedure - Status Source Growth 02/01 0050 Urine Culture - RECD URINE ROUT 02/01 0030 Surveillance Culture - RECD UPPER RESP 01/31 1755 Blood Culture - RECD BLOOD 01/31 174 Blood Culture - RECD BLOOD Vital Signs Date Time Temp Pulse Resp B/P B/P Pulse O2 O2 Flow FiO2 Mean Ox Delivery Rate 02/01 0430 90 Nasal 3.0L Cannula 02/01 0113 100.3 02/01 0000 93 Nasal 3.0L Cannula 02/01 0000 102.2 100 24 132/80 96 Nasal 3.0L Cannula 01/31 2357 102.2 01/31 2304 92 Nasal 2.0L Cannula 01/31 2211 18 91 Nasal 3.0L Cannula 01/31 2202 101.6 102 18 173/70 86 Room Air 01/31 1858 101.0 116 20 132/86 91 Room Air 01/31 1644 101.8 01/31 1644 101.8 01/31 1614 102.2 01/31 1611 102.2 120 22 120/82 89 Room Air Intake & Output 02/01 1600 02/01 0800 02/01 0000 Intake Total 1170 Output Total 350 200 Balance 820 -200 Intake, IV 810 Intake, Oral 360 Output, Urine 350 200 Patient 260 lb Weight Weight Reported by Patient Measurement Method Impression/Plan Impression/Plan Impression/Plan: Well-developed well-nourished obese female, looks stated age, no apparent distress. HEENT: Atraumatic, extraocular motion intact Neck: Supple, no lymphadenopathy Respiratory: Mild increased respiratory rate and effort Heart: Tachycardic Abdomen: Obese Extremities: Right lower extremity benign Left lower extremity with severe erythema circumferentially to the lower leg sparing the foot. The erythema warmth swelling and tenderness extends from the tibial tubercle region down to the ankle joint and circumferentially encompassing the lower leg. Erythema is most concentrated around the central midportion of the anterior tibia with there is an approximate 4 x 3.5 cm open wound with small amount of mucopurulent and granulation tissue present in the wound, this is where the biopsy was taken from according to the patient. Exposed fascia is noted, no exposed bone. There is significant warmth erythema swelling and induration around the ulceration. There is a smaller 1 cm chronic nonhealing wound at the medial ankle region. Dorsal pedal pulses are intact 2+ There is faint lymphangitic streaking noted to the medial thigh and into the groin with mild tenderness in this area. The significant erythema of the lower leg has been outlined in ink by the emergency room staff No significant calf tenderness and a negative Homans sign Neuro: Alert and oriented x3 Psych: Mood affect normal, normal memory normal judgment. IMPRESSION This is a lady with chronic lower extremity venous ulcer, chronic edema of the leg, morbid obesity, recent surgery to the lower extremity with wound VAC placement and graft done by Dr. Stone Stiles now comes in with * Significant lower extremity left-sided cellulitis in a lady with chronic left sided venous insufficiency and peripheral vascular disease (high white count, normal gap and lactic acid, with sig fever)- pt growing strep A from the OR cultures * Multiple antibiotic allergies including penicillin * Significant leukocytosis and fever * History of asthma with mild bronchospasm * Prob tracheomalacia * Morbid obesity * Hyponatremia improving * Previous history of strep a and staph aureus cellulitis with recent strep a and staph aureus in the culture with heavy growth of's beta strep a. * Rule out DVT as she does have lower extremity edema * No clinical evidence suggestive of necrotizing fasciitis RECOMMENDATION DC Intravenous fluids Cont abx sputum culture Nebs duoneb and No steroids Infectious disease consult María following Keep the leg elevated Lower ext dopplers WIll get chest cta in am if creat is stable Sugar control Start symbicort 160 2 puff bid Ok to the floor
--- NOTE | 2017-02-01 11:19 | Cons- Infect Disease ---
General Information and HPI Consulting Request Date of Consult: 02/01/17 Requested By: MAHSA RODRIGUES,MYRON Mckenzie Reason for Consult: abx advice Source of Information: patient, primary team Exam Limitations: clinical condition History of Present Illness: 66 year old female known with GERD, morbid obesity, asthma, previous Strep tococcus group A and Staph aureus cellulitis and non-healing left leg ulcer followed by Dr. Stone Stiles MD and Dr. Clint Hernandez MD presented to the ED on 01/31/17 with a one day history of left lower extremity redness, swelling and fever According to the patient, yesterday she had a scheduled biopsy of this left lower extremity non-healing ulcer by Dr. Go MD. Then, previous morning she noted severe redness of the left lower leg extending to the upper littlejohn and serous, non-bloody drainage of the ulcer. She reported pain in the whole lower leg exacerbated by ambulation, chills, malaise, weakness, decreased appetite (she only had naya william in the last day), occasional dizziness on standing, shortness of breath, cough and wheezing for one day. She denies sore throat, chest pain, palpitations, nausea, vomiting, abdominal pain, dysuria, or diarrhea. Of note, patient reports that she previously had an episode of cellulitis following graft procedure of her left leg. Admited to ICU, remains febrile, although fever curve appears to trend down. Improved redness L LE while treated w/ iv vancomycin/clindamycin. Blood work abnormal including severe leukocytosis. Allergies/Medications Allergies: Coded Allergies: cephalexin (Intermediate, LINE UP ARM; PER PT IS TAKING MED ORALLY CURRENTLY ) Penicillins (GI UPSET, DOESNT AGREE 11/26/16) ciprofloxacin (UNKNOWN PER PT 11/26/16) doxycycline (UNKNOWN PER PT 11/26/16) gentian malika (From HYDROFERA BLUE READY) (UNKNOWN PER PT 11/26/16) ibuprofen (From MOTRIN) (STATES "I CANT TAKE MOTRIN" 01/31/17) iodine (UMANZOR ULCERS 11/26/16) levofloxacin (From LEVAQUIN) (UNKNOWN PER PT 11/26/16) methylene blue (From HYDROFERA BLUE READY) (UNKNOWN PER PT 11/26/16) promethazine (UNKNOWN PER PT 11/26/16) venom-honey bee (LOCALIZED SWELLING PER PT 11/26/16) Home Med List: Acetaminophen With Codeine (Acetaminophen-Cod #3 Tablet) 300 MG-30 MG TABLET 1 TAB PO PRN PAIN (Reported) Albuterol Sulfate (Proair Hfa) 90 MCG HFA.AER.AD 2 PUF INH PRN ASTHMA ( Reported) Ascorbic Acid (Vitamin C) (Unknown Strength) TABLET (Unknown Dose) PO DAILY SUPPLEMENT (Reported) Atorvastatin Calcium 10 MG TABLET 1 TAB PO DAILY CHOLESTEROL (Reported) Calcium Carbonate/Vitamin D3 (Calcium 500 + D Tablet) (Unknown Strength) TABLET (Unknown Dose) PO DAILY SUPPLEMENT (Reported) Epinephrine (Epipen) 0.3 MG/0.3 ML AUTO.INJCT 0.3 MG IM AD PRN ALLERGIC REACTION (Reported) Meloxicam 7.5 MG TABLET 1 TAB PO DAILY PAIN/INFLAMMATION (Reported) Omeprazole 40 MG CAPSULE. 1 CAP PO DAILY GI (Reported) Current Medications: Current Medications Sig/Pop Start time Last Medication Dose Route Stop Time Status Admin Acetaminophen 650 MG Q6P PRN 01/31 2345 AC 01/31 PO 2357 Acetaminophen 975 MG ONCE ONE 01/31 1615 DC 01/31 PO 01/31 1616 1614 Albuterol Sulfate 3 ML TID 02/01 1046 AC 02/01 INH 1047 Albuterol Sulfate 2 PUF Q4 HRS NEEDED PRN 01/31 2345 AC INH Albuterol Sulfate 3 ML ONCE ONE 01/31 2315 DC 01/31 INH 01/31 2316 2304 Atorvastatin Calcium 10 MG DAILY 02/01 1000 AC 02/01 PO 1050 Budesonide/ 2 PUF BID 02/01 1000 AC 02/01 Formoterol Fumarate INH 1053 Clindamycin 600 MG IQ8 02/01 0000 AC 02/01 Dextrose/Water 50 ML IV 0800 Clindamycin 600 MG ONCE ONE 01/31 1815 DC 01/31 Dextrose/Water 50 ML IV 01/31 1844 1828 Diphenhydramine HCl 25 MG ONCE ONE 01/31 2215 DC IV 01/31 2216 Enoxaparin Sodium 40 MG DAILY 02/01 1000 CAN SC Enoxaparin Sodium 180 MG DAILY 02/01 0900 AC 02/01 SC 1050 Enoxaparin Sodium 120 MG ONCE ONE 01/31 2215 DC 02/01 SC 01/31 2216 0107 Ipratropium [place] 2.5 ML TID 02/01 1047 AC 02/01 INH 1047 Ipratropium [place] 2.5 ML ONCE ONE 01/31 2215 DC 01/31 INH 01/31 221 2300 Ipratropium [place] 2.5 ML ONCE ONE 01/31 2215 CAN INH 01/31 2216 Omeprazole 40 MG DAILY AC 02/01 0700 AC 02/01 PO 0631 Oxycodone/ 1 TAB Q6 PRN 01/31 2345 AC Acetaminophen PO Oxycodone/ 2 TAB Q6P PRN 01/31 2345 AC Acetaminophen PO Sodium Chloride 1,000 ML Q8H 01/31 2200 DC 01/31 IV 2357 Sodium Chloride 1,000 ML ONCE ONE 01/31 1715 DC 01/31 IV 01/31 2354 1756 Vancomycin HCl 1,500 MG Q12 02/01 1000 AC Sodium Chloride 250 ML IV Vancomycin HCl 1,500 MG Q12 01/31 2300 CAN Sodium Chloride 250 ML IV Vancomycin HCl 1,000 MG Q12 01/31 2200 DC 01/31 Sodium Chloride 250 ML IV 02/01 0900 2245 Past History Travel History Traveled to [place] past 21 day No Medical History Blood Transfusion Hx: No Neurological: NONE EENT: NONE Cardiovascular: hyperlipidemia Respiratory: asthma Gastrointestinal: GERD Hepatic: NONE Renal: NONE Musculoskeletal: osteoarthritis Psychiatric: NONE Endocrine: NONE Blood Disorders: NONE Cancer(s): NONE OREMAN/Reproductive: NONE Other Medical Hx: Nonhealing wound ulcer left leg History of MRSA: No History of VRE: No History of CDIFF: No Isolation History: Standard Surgical History Surgical History: Right arm surgery SKIN GRAFTS Psychosocial History Where Do You Live? Home Who Do You Live With? self Services at Home: None Primary Language: Malay Smoking Status: Current Everyday Smoker ETOH Use: denies use Illicit Drug Use: denies illicit drug use Living Will? yes Other Social History: Social history is significant for greater than 40 year History of tobacco abuse, currently using electronic cigarettes. She denies alcohol or illicit drug use. Family history is significant for a father who passed from cancer and a mother with scleroderma; Rosa's sister recently passed due to ETOH abuse. Rosa lives at home with her cat and ambulates with a cane. Functional Ability ADLs Independent: dressing, eating, toileting, bathing. Ambulation: cane IADLs Independent: shopping, housework, finances, food prep, telephone, transportation , medication admin. Sexual History Sexually Active: No Review of Systems Comments 12 points reviewed as noted, otherwise negative. Exam & Diagnostic Data Last 24 Hrs of Vital Signs/I&O Vital Signs Date Time Temp Pulse Resp B/P B/P Pulse O2 O2 Flow FiO2 Mean Ox Delivery Rate 02/01 0430 90 Nasal 3.0L Cannula 02/01 0113 100.3 02/01 0000 93 Nasal 3.0L Cannula 02/01 0000 102.2 100 24 132/80 96 Nasal 3.0L Cannula 01/31 2357 102.2 01/31 2304 92 Nasal 2.0L Cannula 01/31 2211 18 91 Nasal 3.0L Cannula 01/31 2202 101.6 102 18 173/70 86 Room Air 01/31 1858 101.0 116 20 132/86 91 Room Air 01/31 1644 101.8 01/31 1644 101.8 01/31 1614 102.2 01/31 1611 102.2 120 22 120/82 89 Room Air Intake & Output 02/01 1600 02/01 0800 02/01 0000 Intake Total 1170 Output Total 350 200 Balance 820 -200 Intake, IV 810 Intake, Oral 360 Output, Urine 350 200 Patient 260 lb Weight Weight Reported by Patient Measurement Method Physical Exam Other Physical Findings: General Appearance , Cooperative, No Acute Distress, Elevated BMI HEENT Atraumatic, EOMI Neck Supple, +2 Carotid Pulse wo Bruit Lymphatic Cervical nl Cardiovascular Regular Rate, Normal S1, Normal S2 Lungs Diffuse wheezes, poor inspiratory effort Abdomen Soft, No Tenderness, Protuberant Neurological Strength at 5/5 X4 Ext, Normal Tone, Sensation Intact Extremities No Clubbing, No Cyanosis, 2+ edema of bilateral lower extremities L> R Vascular Normal Pulses, Pulses Symmetrical Skin Severe erythema of left lower extremity to upper littlejohn, 1 ulceration mid anterior littlejohn + slough, 1 ulcer medial malleolus left foot Neuro: Alert, Oriented X3 Last 24 Hours of Lab Results: Laboratory Tests 02/01 02/01 0440 0050 Chemistry Sodium (137 - 145 mmol/L) 136 L Potassium (3.5 - 5.1 mmol/L) 4.0 Chloride (98 - 107 mmol/L) 98 Carbon Dioxide (22 - 30 mmol/L) 27 Anion Gap (5 - 16) 11 BUN (7 - 17 mg/dL) 19 H Creatinine (0.5 - 1.0 mg/dL) 1.0 Estimated GFR (>60 ml/min) 56 L Glucose (65 - 99 mg/dL) 101 H Calcium (8.4 - 10.2 mg/dL) 8.3 L Phosphorus (2.5 - 4.5 mg/dL) 3.8 Magnesium (1.6 - 2.3 mg/dL) 1.7 Total Bilirubin (0.2 - 1.3 mg/dL) 0.9 AST (14 - 36 U/L) 19 ALT (9 - 52 U/L) 24 Albumin (3.5 - 5.0 g/dL) 3.2 L Hematology CBC w Diff MAN DIFF ORDERED WBC (4.8 - 10.8 /CUMM) 26.8 H RBC (4.20 - 5.40 /CUMM) 4.49 Hgb (12.0 - 16.0 G/DL) 14.0 Hct (37 - 47 %) 41.9 MCV (81.0 - 99.0 FL) 93.3 MCH (27.0 - 31.0 PG) 31.2 H RDW (11.5 - 14.5 %) 15.3 H Plt Count (130 - 400 /CUMM) 154 MPV (7.4 - 10.4 FL) 9.8 Gran % (42.2 - 75.2 %) 96.5 H Lymphocytes % (20.5 - 51.1 %) 2.8 L Monocytes % (1.7 - 9.3 %) 0.7 L Eosinophils % (0 - 5 %) 0 Basophils % (0.0 - 2.0 %) 0 L Absolute Granulocytes (1.4 - 6.5 /CUMM) 25.9 H Segmented Neutrophils (42.2 - 75.2 %) 85 H Band Neutrophils (0.0 - 5.0 %) 10 H Absolute Lymphocytes (1.2 - 3.4 /CUMM) 0.8 L Lymphocytes (20.5 - 51.1 %) 4 L Monocytes (1.7 - 9.3 %) 1 L Absolute Monocytes (0.10 - 0.60 /CUMM) 0.2 Absolute Basophils (0.0 - 0.2 /CUMM) 0 Platelet Estimate (ADEQUATE) ADEQUATE Polychromasia 1+ Poikilocytosis 2+ Ovalocytes 1+ Stomatocytes 1+ PUBS MCHC (33.0 - 37.0 G/DL) 33.4 Other Body Source Fld Total RBCs Counted (%) 100 Urines Urine Color (YEL,AMB,STR) YEL Urine Clarity (CLEAR) CLEAR Urine pH (5.0 - 8.0) 6.5 Ur Specific [place] (1.001 - 1.035) 1.010 Urine Protein (NEG,<30 MG/DL) 30 H Urine Ketones (NEG) NEG Urine Nitrite (NEG) NEG Urine Bilirubin (NEG) NEG Urine Urobilinogen (0.1 - 1.0 EU/dl) 0.2 Ur Leukocyte Esterase (NEG) TRACE H Ur Microscopic SEDIMENT EXAMINED Urine RBC (0 - 5 /HPF) 1-3 Urine WBC (0 - 2 /HPF) 3-5 H Ur Epithelial Cells (NONE,FEW) MOD H Urine Bacteria (NEG/NONE) FEW H Urine Hemoglobin (NEG) TRACE-INTACT Urine Glucose (N MG/DL) NEG 02/01 01/31 01/31 01/31 0045 2213 2138 1854 Chemistry Lactic Acid (0.7 - 2.1 mmol/L) 1.4 Cancelled 2.6 H 1.1 01/31 1755 Chemistry Sodium (137 - 145 mmol/L) 133 L Potassium (3.5 - 5.1 mmol/L) 3.9 Chloride (98 - 107 mmol/L) 97 L Carbon Dioxide (22 - 30 mmol/L) 26 Anion Gap (5 - 16) 11 BUN (7 - 17 mg/dL) 24 H Creatinine (0.5 - 1.0 mg/dL) 1.0 Estimated GFR (>60 ml/min) 56 L BUN/Creatinine Ratio (7 - 25 %) 24.0 Glucose (65 - 99 mg/dL) 122 H Calcium (8.4 - 10.2 mg/dL) 8.9 Total Bilirubin (0.2 - 1.3 mg/dL) 1.1 AST (14 - 36 U/L) 22 ALT (9 - 52 U/L) 27 Alkaline Phosphatase (<127 U/L) 146 H Creatine Kinase (30 - 135 U/L) 68 Troponin I (< 0.11 ng/ml) 0.01 Total Protein (6.3 - 8.2 g/dL) 7.2 Albumin (3.5 - 5.0 g/dL) 3.6 Globulin (1.9 - 4.2 gm/dL) 3.6 Albumin/Globulin Ratio (1.1 - 2.2 %) 1.0 L Hematology CBC w Diff MAN DIFF ORDERED WBC (4.8 - 10.8 /CUMM) 32.6 *H RBC (4.20 - 5.40 /CUMM) 4.82 Hgb (12.0 - 16.0 G/DL) 15.1 Hct (37 - 47 %) 44.8 MCV (81.0 - 99.0 FL) 92.9 MCH (27.0 - 31.0 PG) 31.3 H RDW (11.5 - 14.5 %) 15.2 H Plt Count (130 - 400 /CUMM) 179 MPV (7.4 - 10.4 FL) 9.5 Gran % (42.2 - 75.2 %) 96.2 H Lymphocytes % (20.5 - 51.1 %) 2.3 L Monocytes % (1.7 - 9.3 %) 1.4 L Eosinophils % (0 - 5 %) 0 Basophils % (0.0 - 2.0 %) 0.1 Absolute Granulocytes (1.4 - 6.5 /CUMM) 31.4 H Segmented Neutrophils (42.2 - 75.2 %) 83 H Band Neutrophils (0.0 - 5.0 %) 9 H Absolute Lymphocytes (1.2 - 3.4 /CUMM) 0.8 L Lymphocytes (20.5 - 51.1 %) 5 L Monocytes (1.7 - 9.3 %) 3 Absolute Monocytes (0.10 - 0.60 /CUMM) 0.5 Absolute Eosinophils (0.0 - 0.7 /CUMM) 0 Absolute Basophils (0.0 - 0.2 /CUMM) 0 Platelet Estimate (ADEQUATE) ADEQUATE Normochromic RBCs VERIFIED Poikilocytosis 2+ Stomatocytes 2+ PUBS MCHC (33.0 - 37.0 G/DL) 33.6 Last 24 Hours of Fernando Results: SPEC #: [id number] CARLI: 01/31/17 STATUS: WKST RECD: 01/31/[address]: ANTHONY MANRIQUEZ MD SOURCE: BLOOD ENTR: 01/31/17 [facility] DR: VÍCTOR RODRIGUES,RAMANDEEP Higginbotham SPDESC: 2ND/VENOUS ORDERED: BLOOD CULTURE Procedure Result BLOOD CULTURE PENDING Diagnostic Data Recent Imaging Findings: ERVICE DATE: 01/31/17 EXAM TYPE: CAT - CT LOWER EXT W IV CONTRAST EXAMINATION: CT LOWER EXTREMITY WITH CONTRAST, left lower extremity CLINICAL INFORMATION: Redness the upper calf down to the ankle. Cellulitis. Infected with Streptococcus A. Concern for necrotizing fasciitis COMPARISON: None TECHNIQUE: IV contrast was given Axial images obtained from the knee through the foot. Coronal and sagittal reformatted images are performed at the CT scanner DLP: 1912.05 mGy-cm FINDINGS: There is no evidence of necrotizing fasciitis. There is mild subcutaneous edema. There is no focal fluid collection. There is no abscess. No air in the soft tissue. The intermuscular fat planes are maintained. No osseous abnormality. IMPRESSION: Subcutaneous edema. No focal fluid collection or abscess. No evidence of necrotizing fasciitis. DICTATED BY: EARL HARDY MD DATE/TIME DICTATED:01/31/172258 VOUCHER CLERK:MONICA DATE/TIME TRANSCRIBED:01/31/172258 CONFIDENTIAL, DO NOT COPY WITHOUT APPROPRIATE AUTHORIZATION. <Electronically signed in Other Vendor System> SIGNED BY: EARL HARDY MD 01/31/17 [id number] Assessment/Plan Assessment/Plan Impression: 66 year old female known with GERD, morbid obesity, asthma, previous Streptococcus group A and Staph aureus cellulitis admitted on 01/31/17 with sepsis. L LE cellulitis (possible pathogens Staph, Strep spp, and less likely Ps. aeruginosa) Non-healing left leg ulcer Fever Leukocytosis w/ left shift; 10% bands COPD exac Suggestion: 1. Trend CBC, BMP, lactic acid. 2. L nonhealing ulcer culture; plastic sx follow up 3. ESR/CRP w/ next blood work. 4. Continue present abs regimen (Vanco/Clindamycin); plan to descalate antibiotics based on culture results (e. g Unasyn); of note not true allergy to PCN (GI upset) Consult Acknowledgment - Thank you for your consult request.
--- NOTE | 2017-02-01 14:31 | NUR ---
Physical Therapy: PT referral received; currently awaiting ultrasound to r/u DVT therefore PT IE on hold at this time. Will f/u as appropriate.
--- NOTE | 2017-02-01 14:52 | ULTRASOUND REPORT ---
EXAMINATION: US TRIPLEX OF LOWER EXTREMITIES, BILATERAL CLINICAL INFORMATION: Lower extremity edema. Evaluate for DVT. COMPARISON: None TECHNIQUE: Color-flow triplex imaging with spectral analysis and compression Doppler were performed on the lower extremities. FINDINGS: Respiratory variation, normal compression and augmented flow are noted throughout the lower extremities. The visualized common femoral vein, superficial femoral vein, profunda femoral vein, popliteal vein and midcalf peroneal and posterior tibial venous segments show no evidence of deep venous thrombosis. There is no Humphrey's cyst. IMPRESSION: Normal triplex scan without evidence of deep venous thrombosis involving the lower extremities.
[2017-02-01 22:12] VITALS: BP 144/76
[2017-02-02 06:00] VITALS: BP 138/60
--- NOTE | 2017-02-02 06:42 | NUR ---
PT'S 0630 02 SAT WAS 92% ON 3.5L WHILE RR 27. RESPIRATORY CONTACTED AND VERIFIED PT IN ACCEPTABLE RANGE
[2017-02-02 08:07] LABS: ABSOLUTE BASOPHIL COUNT 0 /CUMM (0.0-0.2); ABSOLUTE EOSINOPHIL COUNT 0 /CUMM (0.0-0.7); ABSOLUTE LYMPH COUNT 1.2 /CUMM (1.2-3.4); ABSOLUTE MONOCYTE COUNT 0.6 /CUMM (0.10-0.60); BASOPHIL % 0.3 % (0.0-2.0); EOSINOPHIL % 0.2 % (0-5); GRANULOCYTE % 87.7 % (42.2-75.2); HEMATOCRIT 38.3 % (37-47); MEAN CORPUSCULAR HGB 31.1 PG (27.0-31.0); MEAN CORPUSCULAR HGB CONC 33.4 G/DL (33.0-37.0); MEAN CORPUSCULAR VOLUME 93.3 FL (81.0-99.0); MEAN PLATELET VOLUME 10.5 FL (7.4-10.4); PLATELET COUNT 134 /CUMM (130-400); RBC DISTRIBUTION WIDTH 15.4 % (11.5-14.5)
--- NOTE | 2017-02-02 08:37 | PN- Housestaff ---
Subjective Follow-up For: LLE ULCER CELULITIS Subjective: Saw pt at bedside. She stated her legs seemed to be feeling worse. She noted blisters that werent there previously. Her vanc trough 18.9. Was planning for CTA this am to evaluate for PE but has Cr. 1.2. Will con't monitor. Tmax 100.2 last night. Review of Systems Constitutional: Reports: no symptoms. Denies: chills, malaise. EENTM: Reports: no symptoms. Cardiovascular: Reports: no symptoms. Respiratory: Reports: no symptoms. Gastrointestinal: Reports: no symptoms. Musculoskeletal: Reports: no symptoms. Skin: Reports: erythema, lesions, rash. Objective Last 24 Hrs of Vital Signs/I&O Vital Signs Date Time Temp Pulse Resp B/P B/P Pulse O2 O2 Flow FiO2 Mean Ox Delivery Rate 02/02 0808 94 Nasal 4.0L Cannula 02/02 0800 92 Nasal 4.0L Cannula 02/02 0600 99.3 82 27 138/60 92 Nasal 3.5L Cannula 02/02 0000 Nasal 3.5L Cannula 02/01 2212 100.2 92 24 144/76 94 Nasal 3.5L Cannula 02/01 2103 94 Nasal 4.0L Cannula 02/01 1800 Nasal 4.0L Cannula Intake & Output 02/02 1600 02/02 0800 02/02 0000 Intake Total 300 250 Output Total 600 400 Balance -300 -150 Intake, IV 180 Intake, Oral 120 250 Output, Urine 600 400 Physical Exam General Appearance: Alert, Oriented X3, Cooperative, No Acute Distress Skin: LE lesions covered by bandage which is unraveling and with some drainage. [place] and some bilsters noted. No purulence or fluctuance HEENT: Atraumatic, PERRLA, Mucous Membr. moist/pink Neck: Supple Cardiovascular: Regular Rate, Normal S1, Normal S2 Lungs: Normal Air Movement Abdomen: Soft Extremities: LLE (see skin). Edematous and erythematous Current Medications: Current Medications Sig/Pop Start time Last Medication Dose Route Stop Time Status Admin Acetaminophen 650 MG Q6P PRN 01/31 2345 AC 01/31 PO 2357 Albuterol Sulfate 3 ML TID 02/01 1046 AC 02/02 INH 0807 Albuterol Sulfate 2 PUF Q4 HRS NEEDED PRN 01/31 2345 AC INH Atorvastatin Calcium 10 MG DAILY 02/01 1000 AC 02/02 PO 0805 Budesonide/ 2 PUF BID 02/02 1210 CAN Formoterol Fumarate INH Budesonide/ 2 PUF BID 02/01 1000 AC 02/02 Formoterol Fumarate INH 0803 Clindamycin 600 MG IQ8 02/01 0000 AC 02/02 Dextrose/Water 50 ML IV 0804 Enoxaparin Sodium 40 MG DAILY 02/02 1000 AC 02/02 SC 0815 Enoxaparin Sodium 180 MG DAILY 02/01 0900 DC 02/01 SC 1050 Furosemide 20 MG ONCE ONE 02/02 1215 AC IV 02/02 1216 Ipratropium [place] 2.5 ML TID 02/01 1047 AC 02/02 INH 0806 Methyl Salicylate 1 EYAD Q6-PRN PRN 02/02 1200 AC TOP Nystatin 1 EYAD TID PRN 02/01 1415 AC TOP Omeprazole 40 MG DAILY AC 02/01 0700 AC 02/02 PO 0623 Oxycodone/ 1 TAB Q6 PRN 01/31 2345 AC Acetaminophen PO Oxycodone/ 2 TAB Q6P PRN 01/31 2345 AC Acetaminophen PO Patient Medication 1 UNIT ONE NR 02/01 1845 DC 02/02 Teaching ED 02/01 1900 0816 Vancomycin HCl 1,500 MG Q12 02/01 1000 AC 02/02 Sodium Chloride 250 ML IV 1040 Assessment/Plan Assessment: Ms. Platt is a 66 year old female with PMH GERD, asthma, morbid obesity, previous strep A and staph aureus cellulitis and non-healing left leg ulcer who presents with a one day history of left lower extremity erythema, swelling and non-healing ulcer. She also noted decreased appetite, subjective fever, chills and shortness of breath with cough. Patient was initially admitted to the ICU and on 02/01 was transferred to once Nec fasc was ruled out. PLAN 1. Sepsis secondary to left lower extremity cellulitis: Lower Extremity CT: Subcutaneous edema. No focal fluid collection or abscess. * Jaeger culture, monitor for fevers. CULTURES PENDING * continuing vancomycin and Clindamycin--> Pending Cx de-escalate to Unasyn? * Vancomycin Trough 02/02/2017: 18.9 * Lower extremity doppler to rule out DVT NEGATIVE FOR CLOT * Consult on Friday with Dr. Hernandez as he sees patient outpatient for non- healing ulcers * Elevate legs 2. Acute hypoxic respiratory failure in the setting of asthma: Patient noted to drop her oxygen saturations to 85% on room air, placed on 3 L NC. CXR x 2 shows no signs of fluid overload, no pathology noted * DDx: Asthma exacerbation, PE, fluid overload?, * If Cr is stable CTA in Am 02/02/2017 to rule out PE; Cr 1.2. Monitor tomorrow. * Provide supplemental O2 to maintain O2 sats >92% * [place] evaluation * No systemic steroids for now * Started symbicort today 3. GERD * Continue omeprazole daily 4. HLD * Continue statin DNR/DNI (will accept a central line) Heart Healthy Diet DVTP: SC lovenox Problem List: 1. Leg ulcer, left 2. Sepsis Pain Ratin Pain Location: NONE Pain Goal: Remain pain free Pain Plan: NONE Tomorrow's Labs & Rationales: CBC BEP
--- NOTE | 2017-02-02 09:04 | PN- Pulmonary ---
Subjective HPI/Critical Care Issues: Still wheezing This is her baseline per patient Still hypoxemic requiring 2-3 L of oxygen especially at bedtime suggestive of hypoventilation versus sleep apnea at bedtime Fever curve is down She is now developing a blister in her leg The cough is present but no sputum Objective Current Medications: Current Medications Sig/Pop Start time Last Medication Dose Route Stop Time Status Admin Acetaminophen 650 MG Q6P PRN 01/31 2345 AC 01/31 PO 2357 Albuterol Sulfate 3 ML TID 02/01 1046 AC 02/02 INH 0807 Albuterol Sulfate 2 PUF Q4 HRS NEEDED PRN 01/31 2345 AC INH Atorvastatin Calcium 10 MG DAILY 02/01 1000 AC 02/02 PO 0805 Budesonide/ 2 PUF BID 02/01 1000 AC 02/02 Formoterol Fumarate INH 0803 Clindamycin 600 MG IQ8 02/01 0000 AC 02/02 Dextrose/Water 50 ML IV 0804 Enoxaparin Sodium 40 MG DAILY 02/02 1000 AC 02/02 SC 0815 Enoxaparin Sodium 180 MG DAILY 02/01 0900 DC 02/01 SC 1050 Ipratropium [place] 2.5 ML TID 02/01 1047 AC 02/02 INH 0806 Nystatin 1 EYAD TID PRN 02/01 1415 AC TOP Omeprazole 40 MG DAILY AC 02/01 0700 AC 02/02 PO 0623 Oxycodone/ 1 TAB Q6 PRN 01/31 2345 AC Acetaminophen PO Oxycodone/ 2 TAB Q6P PRN 01/31 2345 AC Acetaminophen PO Patient Medication 1 UNIT ONE NR 02/01 1845 DC 02/02 Teaching ED 02/01 1900 0816 Sodium Chloride 1,000 ML Q8H 01/31 2200 DC 01/31 IV 2357 Vancomycin HCl 1,500 MG Q12 02/01 1000 DC Sodium Chloride 250 ML IV Vancomycin HCl 1,500 MG Q12 02/01 1000 AC 02/01 Sodium Chloride 250 ML IV 2200 Vital Signs & I&O Last 24 Hrs of Vitals and I&O: Vital Signs Date Time Temp Pulse Resp B/P B/P Pulse O2 O2 Flow FiO2 Mean Ox Delivery Rate 02/02 0808 94 Nasal 4.0L Cannula 02/02 0600 99.3 82 27 138/60 92 Nasal 3.5L Cannula 02/02 0000 Nasal 3.5L Cannula 02/02 2212 100.2 92 24 144/76 94 Nasal 3.5L Cannula 02/01 2103 94 Nasal 4.0L Cannula 02/01 1800 Nasal 4.0L Cannula Intake & Output 02/02 1600 02/02 0800 02/02 0000 Intake Total 300 250 Output Total 600 400 Balance -300 -150 Intake, IV 180 Intake, Oral 120 250 Output, Urine 600 400 Impression/Plan Impression/Plan Impression/Plan: Well-developed well-nourished obese female, looks stated age, no apparent distress. HEENT: Atraumatic, extraocular motion intact Neck: Supple, no lymphadenopathy Respiratory: Mild increased respiratory rate and effort Heart: Tachycardic Abdomen: Obese Extremities: Right lower extremity benign Left lower extremity with severe erythema circumferentially to the lower leg sparing the foot. The erythema warmth swelling and tenderness extends from the tibial tubercle region down to the ankle joint and circumferentially encompassing the lower leg. Erythema is most concentrated around the central midportion of the anterior tibia with there is an approximate 4 x 3.5 cm open wound with small amount of mucopurulent and granulation tissue present in the wound, this is where the biopsy was taken from according to the patient. Exposed fascia is noted, no exposed bone. There is significant warmth erythema swelling and induration around the ulceration. There is a smaller 1 cm chronic nonhealing wound at the medial ankle region. Dorsal pedal pulses are intact 2+ There is faint lymphangitic streaking noted to the medial thigh and into the groin with mild tenderness in this area. The significant erythema of the lower leg has been outlined in ink by the emergency room staff No significant calf tenderness and a negative Homans sign Neuro: Alert and oriented x3 Psych: Mood affect normal, normal memory normal judgment. Lower extremity Doppler negative for DVT IMPRESSION This is a lady with chronic lower extremity venous ulcer, chronic edema of the leg, morbid obesity, recent surgery to the lower extremity with wound VAC placement and graft done by Dr. Stone Stiles now comes in with * Significant lower extremity left-sided cellulitis in a lady with chronic left sided venous insufficiency and peripheral vascular disease (high white count, normal gap and lactic acid, with sig fever)- pt growing strep A from the OR cultures * Multiple antibiotic allergies including penicillin * Significant leukocytosis and fever * History of asthma with mild bronchospasm, now with hypoxemia probably related to VQ mismatch. Unlikely that she has any other pulmonary pathology including pulmonary embolism. * Prob tracheomalacia * Morbid obesity * Hyponatremia improving * Previous history of strep a and staph aureus cellulitis with recent strep a and staph aureus in the culture with heavy growth of's beta strep a. * Rule out DVT as she does have lower extremity edema * No clinical evidence suggestive of necrotizing fasciitis RECOMMENDATION 1 dose of intravenous Lasix 20 mg 1 Cont abx sputum culture Nebs duoneb and No steroids systemically Infectious disease to follow María following Keep the leg elevated WIll get chest cta in am if creat is stable, watch creatinine tomorrow. Her creatinine today has gone up to 1.2. Patient did receive contrast for the leg CT scan., Sugar control, Start symbicort 160 2 puff bid
--- NOTE | 2017-02-02 10:00 | NUR ---
LATE ENTRY: PT CONTACTED MORGUE KEEPER ALESSANDRO REGARDING PT'S WOUNDS TO LLE- MD TO PLACE WOUND DSG ORDER. ALSO, PT NOTED TO HAVE LARGE BLISTER TO POSTERIOR NAVA. DR. GOLDEN LATER CALLED UNIT TO SPEAK TO THIS CUT OUT STITCHER. DR. GOLDEN REPORTEDLY HAD DONE A SKIN GRAFT TO PT'S LLE AT ONE POINT AND HAD DR. VALENZUELA FOLLOWING THE PT. MD RECOMMENDED DR. VALENZUELA TO ALSO CONSULT WITH PT DURING HOSPITAL ADMISSION. MORGUE KEEPER ALESSANDROI MADE AWARE OF ABOVE. WILL CONT TO MONITOR.
--- NOTE | 2017-02-02 11:32 | NUR ---
LATE ENTRY: RN NOTIFIED SPECIALTY MOLDER AMY REGARDING PT'S LAB VALUES INCLUDING CALCIUM AND ALBUMIN. PENDING POSSIBLE NEW ORDERS. WILL CONT TO MONITOR.
[2017-02-02 14:16] VITALS: BP 128/60
--- NOTE | 2017-02-02 16:29 | PN- Infect Dx ---
Subjective Subjective: Low grade temp. Worsening erythema L LE. Review of Systems Comments: 12 points reviewed as noted, otherwise negative Objective Last 24 Hrs of Vital Signs/I&O Vital Signs Date Time Temp Pulse Resp B/P B/P Pulse O2 O2 Flow FiO2 Mean Ox Delivery Rate 02/02 1416 99.8 80 27 128/60 97 Nasal 4.0L Cannula 02/02 0808 94 Nasal 4.0L Cannula 02/02 0800 92 Nasal 4.0L Cannula 02/02 0600 99.3 82 27 138/60 92 Nasal 3.5L Cannula 02/02 0000 Nasal 3.5L Cannula 02/01 2212 100.2 92 24 144/76 94 Nasal 3.5L Cannula 02/01 2103 94 Nasal 4.0L Cannula 02/01 1800 Nasal 4.0L Cannula Intake & Output 02/02 1600 02/02 0800 02/02 0000 Intake Total 500 300 250 Output Total 300 600 400 Balance 200 -300 -150 Intake, IV 250 180 Intake, Oral 250 120 250 Number 1 Bowel Movements Output, Urine 300 600 400 Physical Exam Other Physical Findings: General Appearance , Cooperative, No Acute Distress, Elevated BMI HEENT Atraumatic, EOMI Neck Supple, +2 Carotid Pulse wo Bruit Lymphatic Cervical nl Cardiovascular Regular Rate, Normal S1, Normal S2 Lungs Diffuse wheezes, poor inspiratory effort Abdomen Soft, No Tenderness, Protuberant Neurological Strength at 5/5 X4 Ext, Normal Tone, Sensation Intact Extremities No Clubbing, No Cyanosis, 2+ edema of bilateral lower extremities L> R Vascular Normal Pulses, Pulses Symmetrical Skin Severe erythema of left lower extremity to upper littlejohn, 1 ulceration mid anterior littlejohn ~ 4 x 3.5 cm open wound with small amount of mucopurulent and granulation tissue present in the wound. Exposed fascia is noted, no probing to the bone. 1 shallow ulcer medial malleolus left foot Neuro: Alert, Oriented X3 Results Last 24 Hours of Lab Results: Laboratory Tests 02/02 0636 Chemistry Sodium (137 - 145 mmol/L) 137 Potassium (3.5 - 5.1 mmol/L) 3.9 Chloride (98 - 107 mmol/L) 101 Carbon Dioxide (22 - 30 mmol/L) 27 Anion Gap (5 - 16) 9 BUN (7 - 17 mg/dL) 18 H Creatinine (0.5 - 1.0 mg/dL) 1.2 H Estimated GFR (>60 ml/min) 45 L Glucose (65 - 99 mg/dL) 106 H Calcium (8.4 - 10.2 mg/dL) 7.9 L Phosphorus (2.5 - 4.5 mg/dL) 4.1 Magnesium (1.6 - 2.3 mg/dL) 2.1 Total Bilirubin (0.2 - 1.3 mg/dL) 0.6 AST (14 - 36 U/L) 27 ALT (9 - 52 U/L) 24 C-Reactive Prot, Quant (<1.0 mg/dL) > 9 H C-React Prot High Sens (1.0 - 3.0 mg/L) > 15.0 H Albumin (3.5 - 5.0 g/dL) 2.8 L Hematology CBC w Diff MAN DIFF ORDERED WBC (4.8 - 10.8 /CUMM) 16.0 H RBC (4.20 - 5.40 /CUMM) 4.10 L Hgb (12.0 - 16.0 G/DL) 12.8 Hct (37 - 47 %) 38.3 MCV (81.0 - 99.0 FL) 93.3 MCH (27.0 - 31.0 PG) 31.1 H RDW (11.5 - 14.5 %) 15.4 H Plt Count (130 - 400 /CUMM) 134 MPV (7.4 - 10.4 FL) 10.5 H Gran % (42.2 - 75.2 %) 87.7 H Lymphocytes % (20.5 - 51.1 %) 7.8 L Monocytes % (1.7 - 9.3 %) 4.0 Eosinophils % (0 - 5 %) 0.2 Basophils % (0.0 - 2.0 %) 0.3 Absolute Granulocytes (1.4 - 6.5 /CUMM) 14.0 H Segmented Neutrophils (42.2 - 75.2 %) 81 H Band Neutrophils (0.0 - 5.0 %) 11 H Absolute Lymphocytes (1.2 - 3.4 /CUMM) 1.2 Lymphocytes (20.5 - 51.1 %) 4 L Monocytes (1.7 - 9.3 %) 4 Absolute Monocytes (0.10 - 0.60 /CUMM) 0.6 Absolute Eosinophils (0.0 - 0.7 /CUMM) 0 Absolute Basophils (0.0 - 0.2 /CUMM) 0 Platelet Estimate (ADEQUATE) VERIFIED BY SMEAR Anisocytosis 1+ PUBS MCHC (33.0 - 37.0 G/DL) 33.4 ESR Westergren (0 - 20 MM) 85 H Toxicology Vancomycin Trough (10.0 - 20.0 ug/mL) 18.9 Last 24 Hours of Fernando Results: Patient : CON VARGAS Acct: [id number] DR: MAHSA RODRIGUES,MYRON Mckenzie Birthdate: [birth year] Age/Sex: 66/F Unit: [id number] Loc: 2N [phone] Status : ADM IN SPEC #: [id number] CARLI: 02/01/17 STATUS: RES RECD: 02/01/[address]: JOELLEN RODRIGUES,[facility] SOURCE: [facility] ENTR: 02/01/17-[address]: MAHSA RODRIGUES,MYRON Mckenzie SPDESC: LEG L BURAK RENEE MD,RAMANDEEP Higginbotham ORDERED: XTRM CULT COMMENT: TYPE OF SPECIMEN: SUPERFICIAL Procedure Result > GRAM STAIN Final 02/02/17 WHITE BLOOD CELLS FEW GRAM POSITIVE COCCI FEW > EXTREMITIES CULTURE Preliminary 02/02/17-899 Moderate growth of: BETA STREP GROUP A REPORTED TO AND READ BACK BY: GINA AT 0857 02/02/17 LAB.S[facility] Penicillin and Ampicillin are drugs of choice for beta-hemolytic streptococcal infections. Susceptibility testing of penicillins and other beta-lactams are not routinely performed because non-susceptible isolates have only rarely been reported. Note: If patient is allergic to Penicillin, the laboratory can perform Clindamycin testing upon request. Please call within 5 days of final report. Recent Imaging Studies: CT L LE FINDINGS: There is no evidence of necrotizing fasciitis. There is mild subcutaneous edema. There is no focal fluid collection. There is no abscess. No air in the soft tissue. The intermuscular fat planes are maintained. No osseous abnormality. IMPRESSION: Subcutaneous edema. No focal fluid collection or abscess. No evidence of necrotizing fasciitis. DICTATED BY: EARL HARDY MD DATE/TIME DICTATED:01/31/172258 [employer] OBJECTS CONSULTANT:MONICA DATE/TIME TRANSCRIBED:01/31/172258 Assessment/Plan Impression: 66 year old female known with GERD, morbid obesity, asthma, previous Streptococcus group A and Staph aureus cellulitis admitted on 01/31/17 with sepsis. L LE cellulitis (possible pathogens Staph, Strep spp, and less likely Ps. aeruginosa) Non-healing left leg ulcer/elevated ESR Fever Leukocytosis w/ left shift; WBC trending down Mild STACIE COPD exac Suggestion: 1. Trend CBC, BMP. Elevated vancomycin trough; as level above 15 hold iv vancomycin this evening and in am. Random vancomycin level in am; continue iv clindamycin 600 mg iv q 8. Goal vancomycin trough 10-15. 2. L nonhealing ulcer culture; plastic sx follow up. 3. Plan to descalate antibiotics 02/03(e. g Unasyn); of note not true allergy to PCN (GI upset) per patient 4. Would consider MRI L LE eval OM once kidney function improved.
--- NOTE | 2017-02-02 19:01 | NUR ---
PT'S LLE NOTED TO BE SLIGHTLY MORE RED AND SWOLLEN FROM LAST ASSESSMENT. VSS. NO INCREASED PAIN REPORTED. DR. MIMS NOTIFIED. ID CONSULT NOTE SEEN-SNO. PT UPDATED. WILL CONT TO MONITOR.
[2017-02-02 22:15] VITALS: BP 116/58
[2017-02-03 06:51] VITALS: BP 102/61
--- NOTE | 2017-02-03 07:51 | PN- Housestaff ---
TARAN RODRIGUES,KRAMYI 02/03/17 0748: Subjective Follow-up For: LLE cellulitis Subjective: Saw pt at bedside this AM. Afebrile overnight. No acute overnight events. She states that she feels better but that she seemed to note worse blistering. Review of Systems Constitutional: Denies: chills, fever, weakness. EENTM: Reports: no symptoms. Cardiovascular: Denies: chest pain. Respiratory: Reports: cough, short of breath, wheezing. Gastrointestinal: Reports: no symptoms. Genitourinary: Reports: no symptoms. Musculoskeletal: Reports: muscle stiffness. Skin: Reports: change in skin color, erythema, lesions, rash. Objective Last 24 Hrs of Vital Signs/I&O Vital Signs Date Time Temp Pulse Resp B/P B/P Pulse O2 O2 Flow FiO2 Mean Ox Delivery Rate 02/03 1112 89 Room Air Room Air 02/03 08 93 Nasal 3.0L Cannula 02/03 0751 94 Nasal 3.0L Cannula 02/03 0651 97.7 68 20 102/61 97 02/03 0000 93 Nasal 4.0L Cannula 02/02 2215 98.8 79 18 116/58 93 Nasal 4.0L Cannula 02/02 1708 93 Nasal 4.0L Cannula 02/02 1416 99.8 80 27 128/60 97 Nasal 4.0L Cannula Intake & Output 02/03 1600 02/03 0800 02/03 0000 Intake Total 340 120 Output Total 1500 Balance -1160 120 Intake, Oral 340 120 Output, Urine 1500 Physical Exam General Appearance: Alert, Oriented X3, Cooperative, No Acute Distress HEENT: Atraumatic, PERRLA, EOMI, Mucous Membr. moist/pink Neck: Supple Cardiovascular: Regular Rate, Normal S1, Normal S2 Abdomen: Soft, No Tenderness Assessment/Plan Assessment: Ms. Platt is a 66 year old female with PMH GERD, asthma, morbid obesity, previous strep A and staph aureus cellulitis and non-healing left leg ulcer who presents with a one day history of left lower extremity erythema, swelling and non-healing ulcer. She also noted decreased appetite, subjective fever, chills and shortness of breath with cough. Patient was initially admitted to the ICU and on 02/01 was transferred to once Nec fasc was ruled out. PLAN 1. Sepsis secondary to left lower extremity cellulitis: Lower Extremity CT: Subcutaneous edema. No focal fluid collection or abscess. Her OR culture growing heavy strep. Hx of strep and staph cellulitis. * Jaeger culture, monitor for fevers. * Continuing vancomycin and Clindamycin; Vancomycin Trough 02/02/2017: 18.9 as such holding vanco dose until 02/03 night; will need to reassess as her renal function is worsening. Her Cr at 2.0 today when previously 1.2. * Lower extremity doppler NEGATIVE FOR CLOT * Consult w/ Dr. Hernandez as he sees patient outpatient for non-healing ulcers * Elevate legs * Plastics following. Thank you for recs 2. Acute hypoxic respiratory failure in the setting of asthma/COPD: Patient noted to drop her oxygen saturations to 85% on room air, placed on 3 L NC. CXR x 2 shows no signs of fluid overload, no pathology noted. Due to worsening renal function no CTA. Wells Score < 2 suggesting low probability. Per pulmonary concern for COPD/TAYLOR/Tracheomalacia * DDx: Asthma exacerbation, PE, fluid overload?, * Provide supplemental O2 to maintain O2 sats >92% * [place] evaluation * No systemic steroids for now * Started symbicort 02/02/2017 3. GERD * Continue omeprazole daily 4. HLD * Continue statin DNR/DNI (will accept a central line) Heart Healthy Diet DVTP: SC lovenox Problem List: 1. Leg ulcer, left 2. Leukocytosis 3. Cellulitis Pain Ratin Pain Location: none Pain Goal: Remain pain free Pain Plan: none Tomorrow's Labs & Rationales: cbc bep RAMANDEEP RENEE MD 02/03/17 1428: Attending MD Review Statement Attending Statement Attending MD Statement: examined this patient, discuss w/resident/PA/PERSONNEL RECRUITER, agreed w/resident/PA/PERSONNEL RECRUITER, reviewed EMR data (avail), discussed with nursing, amended to note Attending Assessment/Plan: Ms. Platt appears comfortable today. She is recovered within her bed with both lower extremities elevated. She denies fever and chills. She still notes pain in her left lower extremity. Her maximum temperature in the last 24 hours is 99.8 and her remaining vitals are stable. She is in no acute distress. Pulmonary exam is noted for reasonable air exchange with diffuse physical expiratory wheezes. Her neurovascular exam reveals regular rate and rhythm. Abdominal exam is benign. Her distal left lower extremity is bandaged. There is noted to be erythema in the forefoot and toes and proximal extension beyond the ink line of erythema by approximately 4 cm to just below the knee. WBC had decreased to 11,800 with a decrease in her left shift. Her creatinine is 2.0 which has risen from 1.2 yesterday. Wound culture is growing group A beta-hemolytic streptococcus. CT scan of her distal left lower extremity is negative for abscess formation or necrotizing fasciitis. Problems at this point are cellulitis of her left lower extremity which appears to be caused by group A beta strep. At this point it might be prudent to switch patient to ampicillin as it appears that she has no true penicillin allergy if infectious disease concurs with this decision. Her pulmonary status appears to be improving although she is still requiring 3 L via nasal cannula to maintain satisfactory surgeon saturations. I agree with the addition of Symbicort and we should continue her nebs. Her renal function is declining. Serial renal function should be obtained and if her creatinine should continue to rise I agree that nephrology should be consulted. We will continue the remainder of her maintenance medications.
[2017-02-03 08:04] LABS: ABSOLUTE BASOPHIL COUNT 0 /CUMM (0.0-0.2); ABSOLUTE EOSINOPHIL COUNT 0.2 /CUMM (0.0-0.7); ABSOLUTE GRANULOCYTE CT 9.6 /CUMM (1.4-6.5); ABSOLUTE LYMPH COUNT 1.1 /CUMM (1.2-3.4); ABSOLUTE MONOCYTE COUNT 0.8 /CUMM (0.10-0.60); BASOPHIL % 0.3 % (0.0-2.0); EOSINOPHIL % 1.3 % (0-5); GRANULOCYTE % 81.8 % (42.2-75.2); HEMATOCRIT 36.1 % (37-47); MEAN CORPUSCULAR HGB 31.3 PG (27.0-31.0); MEAN CORPUSCULAR HGB CONC 33.5 G/DL (33.0-37.0); MEAN CORPUSCULAR VOLUME 93.1 FL (81.0-99.0); MEAN PLATELET VOLUME 10.4 FL (7.4-10.4); PLATELET COUNT 136 /CUMM (130-400); RBC DISTRIBUTION WIDTH 15.2 % (11.5-14.5); RED BLOOD CELL CT 3.87 /CUMM (4.20-5.40); WHITE BLOOD CELL COUNT 11.8 /CUMM (4.8-10.8)
--- NOTE | 2017-02-03 11:08 | PN- Pulmonary ---
Subjective HPI/Critical Care Issues: Wheezing little better On 3 litres leg still has sig cellulitis no sputum Objective Current Medications: Current Medications Sig/Pop Start time Last Medication Dose Route Stop Time Status Admin Acetaminophen 650 MG .STK-MED ONE 02/02 1843 DC PO 02/02 1844 Acetaminophen 650 MG Q6P PRN 01/31 2345 AC 02/02 PO 1843 Albuterol Sulfate 3 ML TID 02/01 1046 AC 02/03 INH 0749 Albuterol Sulfate 2 PUF Q4 HRS NEEDED PRN 01/31 2345 AC INH Atorvastatin Calcium 10 MG DAILY 02/01 1000 AC 02/03 PO 0959 Budesonide/ 2 PUF BID 02/02 1210 CAN Formoterol Fumarate INH Budesonide/ 2 PUF BID 02/01 1000 AC 02/03 Formoterol Fumarate INH 0958 Clindamycin 600 MG IQ8 02/01 0000 AC 02/03 Dextrose/Water 50 ML IV 0735 Enoxaparin Sodium 40 MG DAILY 02/02 1000 AC 02/03 SC 0959 Furosemide 20 MG ONCE ONE 02/02 1215 DC 02/02 IV 02/02 1216 1522 Ipratropium [place] 2.5 ML TID 02/01 1047 AC 02/03 INH 0749 Methyl Salicylate 1 EYAD Q6-PRN PRN 02/02 1200 AC 02/02 TOP 1253 Nystatin 1 EYAD TID PRN 02/01 1415 AC TOP Omeprazole 40 MG DAILY AC 02/01 0700 AC 02/03 PO 0622 Ondansetron HCl 4 MG ONCE ONE 02/03 0245 DC 02/03 PO 02/03 0246 0245 Ondansetron HCl 4 MG .STK-MED ONE 02/03 0242 DC IM 02/03 0243 Oxycodone/ 1 TAB Q6 PRN 01/31 2345 AC Acetaminophen PO Oxycodone/ 2 TAB Q6P PRN 01/31 2345 AC 02/02 Acetaminophen PO 2318 Vancomycin HCl 1,500 MG 0 02/03 220 AC Sodium Chloride 250 ML IV Vancomycin HCl 1,500 MG Q12 02/01 1000 DC 02/02 Sodium Chloride 250 ML IV 1040 Vital Signs & I&O Last 24 Hrs of Vitals and I&O: Vital Signs Date Time Temp Pulse Resp B/P B/P Pulse O2 O2 Flow FiO2 Mean Ox Delivery Rate 02/03 0800 93 Nasal 3.0L Cannula 02/03 0751 94 Nasal 3.0L Cannula 02/03 0651 97.7 68 20 102/61 97 02/03 0000 93 Nasal 4.0L Cannula 02/02 2215 98.8 79 18 116/58 93 Nasal 4.0L Cannula 02/02 1708 93 Nasal 4.0L Cannula 02/02 1416 99.8 80 27 128/60 97 Nasal 4.0L Cannula Intake & Output 02/03 1600 02/03 0800 02/03 0000 Intake Total 340 120 Output Total 1500 Balance -1160 120 Intake, Oral 340 120 Output, Urine 1500 Impression/Plan Impression/Plan Impression/Plan: Well-developed well-nourished obese female, looks stated age, no apparent distress. HEENT: Atraumatic, extraocular motion intact Neck: Supple, no lymphadenopathy Respiratory: Mild increased respiratory rate and effort Heart: Tachycardic Abdomen: Obese Extremities: Right lower extremity benign Left lower extremity with severe erythema circumferentially to the lower leg sparing the foot. The erythema warmth swelling and tenderness extends from the tibial tubercle region down to the ankle joint and circumferentially encompassing the lower leg. Erythema is most concentrated around the central midportion of the anterior tibia with there is an approximate 4 x 3.5 cm open wound with small amount of mucopurulent and granulation tissue present in the wound, this is where the biopsy was taken from according to the patient. Exposed fascia is noted, no exposed bone. There is significant warmth erythema swelling and induration around the ulceration. There is a smaller 1 cm chronic nonhealing wound at the medial ankle region. Dorsal pedal pulses are intact 2+ There is faint lymphangitic streaking noted to the medial thigh and into the groin with mild tenderness in this area. The significant erythema of the lower leg has been outlined in ink by the emergency room staff No significant calf tenderness and a negative Homans sign Neuro: Alert and oriented x3 Psych: Mood affect normal, normal memory normal judgment. Lower extremity Doppler negative for DVT IMPRESSION This is a lady with chronic lower extremity venous ulcer, chronic edema of the leg, morbid obesity, recent surgery to the lower extremity with wound VAC placement and graft done by Dr. Stone Stiles now comes in with * Significant lower extremity left-sided cellulitis in a lady with chronic left sided venous insufficiency and peripheral vascular disease (high white count, normal gap and lactic acid, with sig fever)- pt growing strep A from the OR cultures\ * Acute renal failure due to Prob contrast induce nephropathy needs follow up * Multiple antibiotic allergies including penicillin * Significant leukocytosis and fever * History of asthma with prob sig copd with more than 40 pack yr smoker with mild bronchospasm, now with hypoxemia probably related to VQ mismatch. Unlikely that she has any other pulmonary pathology including pulmonary embolism. * Prob tracheomalacia * Morbid obesity * Hyponatremia improving * Previous history of strep a and staph aureus cellulitis with recent strep a and staph aureus in the culture with heavy growth of's beta strep a. * No clinical evidence suggestive of necrotizing fasciitis RECOMMENDATION ATC nebs Cont abx sputum culture Nebs duoneb and No steroids systemically Infectious disease to follow María following Keep the leg elevated Watch creat and if continues to raise needs renal eval Sugar control, Start symbicort 160 2 puff bid Change lovenox to sub cut heparin as her renal function is worse
--- NOTE | 2017-02-03 12:00 | NUR ---
NURSING NOTED: PT REFUSING MRI OF LEFT FEMUR. ROWDY CASTRO #[id number] AWARE.
--- NOTE | 2017-02-03 14:35 | PN- Wound Care ---
Subjective Subjective: Patient is 66-year-old with chronic venous stasis ulceration. She's had MRI in October and recent bone scan because of suspicions for osteomyelitis both of which were negative she was seen by Dr. Suarez on for debridement on Friday she developed chills and fever with progressive erythema on her leg which precipitated hospitalization on Friday. In the past she has grown strep and MSSA from wound drainage. She reports allergies to cephalosporin Objective Vital Signs and I&Os Vital Signs Result Date Time Pulse Ox 93 02/03 111 O2 Delivery Nasal Cannula 02/03 111 O2 Flow Rate 3.0L 02/03 1112 B/P 102/61 02/03 0651 Temp 97.7 02/03 0651 Pulse 68 02/03 0651 Resp 20 02/03 0651 Intake & Output 02/03 0000 02/02 1600 02/02 0800 Intake Total 120 500 300 Output Total 300 600 Balance 120 200 -300 Intake, IV 250 180 Intake, Oral 120 250 120 Number 1 Bowel Movements Output, Urine 300 600 There is diffuse erythema and edema of the left leg there is a large fluid- filled bulla measuring approximately 10 x 6 cm which was cleansed with Betadine and evacuated of clear serous fluid. She has to chronic venous stasis ulcers over the left medial malleolus measuring approximately 1.5 x 0.5 cm and left pretibial area measuring approximately 4 x 2 and half centimeters there is red and yellow fill and slightly undermining medially. Impression/Plan Impression/Plan Impression/Plan: 66-year-old woman with chronic venous stasis ulcers status post vein closure who is had persistent ulceration despite compression therapy antibiotics and elevation in conjunction with vein closure. Following debridement she's developed an acute soft tissue infection with persistent concern over possible osteomyelitis though recent imaging has been negative. Dr. Suarez at the time of his debridement did not feel osteomyelitis was present. Recommend aggressive leg elevation wound care with nonadherent dressing daily cleansing. If Aquacel Ag present this would be preferable dressing. Patient will have repeat imaging to exclude osteomyelitis
[2017-02-03 14:50] VITALS: BP 100/60
--- NOTE | 2017-02-03 15:14 | NUR ---
PHYSICAL THERAPY- PT W/ MRI ORDERED TO R/O OSTEOMYELITIS OF FEMUR. WILL DEFER TX AT THIS TIME AND FOLLOW APPROPRIATE WHEN RESULTS OBTAINED.
--- NOTE | 2017-02-03 15:18 | NUR ---
Diet liberalized to regular, pt asking for pickles which are not low sodium, no cardiac hx noted per H&P, is on atorvastatin.
--- NOTE | 2017-02-03 15:28 | Cons- Nephrology ---
General Information and HPI Consulting Request Date of Consult: 02/03/17 Requested By: MAHSA RODRIGUES,MYRON Mckenzie Reason for Consult: STACIE History of Present Illness: I am asked to see this 66-year-old woman because of a rising serum creatinine level. She was admitted on 01/31/17 with cellulitis of her left lower extremity complicating a nonhealing left leg ulcer. Her serum creatinine on admission was 1.0 rising slightly to 1.2 on 02/02 and then to 2.0 today prompting this consultation request. It should be noted that she was exposed to parenteral contrast in the form of a CT scan of her lower extremity on 01/31. There has been no nausea or vomiting although her intake has been poor over the past several days when she was febrile. Her current antibiotic regimen consists of vancomycin and clindamycin. Vancomycin trough level on 02/02 was 18.9 and a random level today was 17.0. There has been no exposure to NSAIDs or aminoglycosides. Past medical history is positive for asthma, GERD, peripheral vascular disease, previous strep a and staph aureus cellulitis, nonhealing left leg ulcer. Medications: See below Allergies: Penicillin, ibuprofen, cephalexin, doxycycline, iodine, levofloxacin, promethazine. Family history: Negative for any known kidney disease Social history never , lives alone, no children, former smoker currently using electronic cigarettes, no history of alcohol or drug abuse. Allergies/Medications Allergies: Coded Allergies: cephalexin (Intermediate, LINE UP ARM; PER PT IS TAKING MED ORALLY CURRENTLY ) Penicillins (GI UPSET, DOESNT AGREE 11/26/16) ciprofloxacin (UNKNOWN PER PT 11/26/16) doxycycline (UNKNOWN PER PT 11/26/16) gentian malika (From HYDROFERA BLUE READY) (UNKNOWN PER PT 11/26/16) ibuprofen (From MOTRIN) (STATES "I CANT TAKE MOTRIN" 01/31/17) iodine (UMANZOR ULCERS 11/26/16) levofloxacin (From LEVAQUIN) (UNKNOWN PER PT 11/26/16) methylene blue (From HYDROFERA BLUE READY) (UNKNOWN PER PT 11/26/16) promethazine (UNKNOWN PER PT 11/26/16) venom-honey bee (LOCALIZED SWELLING PER PT 11/26/16) Home Med List: Acetaminophen With Codeine (Acetaminophen-Cod #3 Tablet) 300 MG-30 MG TABLET 1 TAB PO PRN PAIN (Reported) Albuterol Sulfate (Proair Hfa) 90 MCG HFA.AER.AD 2 PUF INH PRN ASTHMA ( Reported) Ascorbic Acid (Vitamin C) (Unknown Strength) TABLET (Unknown Dose) PO DAILY SUPPLEMENT (Reported) Atorvastatin Calcium 10 MG TABLET 1 TAB PO DAILY CHOLESTEROL (Reported) Calcium Carbonate/Vitamin D3 (Calcium 500 + D Tablet) (Unknown Strength) TABLET (Unknown Dose) PO DAILY SUPPLEMENT (Reported) Epinephrine (Epipen) 0.3 MG/0.3 ML AUTO.INJCT 0.3 MG IM AD PRN ALLERGIC REACTION (Reported) Meloxicam 7.5 MG TABLET 1 TAB PO DAILY PAIN/INFLAMMATION (Reported) Omeprazole 40 MG CAPSULE.DR 1 CAP PO DAILY GI (Reported) Review of Systems Review of Systems: Review of Systems Constitutional: Reports: chills, fever, malaise, weakness. Denies: diaphoresis. EENTM: Denies: blurred vision, visual changes, nasal congestion, throat pain. Cardiovascular: Reports: peripheral edema. Denies: chest pain, palpitations. Respiratory: Reports: cough, short of breath, wheezing. Denies: hemoptysis, sputum production. GI: Denies: abdominal pain, bloating, constipation, diarrhea, nausea, vomiting. Genitourinary: Denies: dysuria, hematuria. Musculoskeletal: Reports: joint pain (LLE, worse on ambulation). Skin: Reports: change in skin color, erythema, lesions. Neurological/Psychological: Denies: confusion, headache, numbness, paresthesia, unable to move lower ext. Hematologic/Endocrine: Denies: bruising, bleeding. Immunologic/Allergic: Denies: splenectomy. All Other Systems: Reviewed and Negative Past History Travel History Traveled to [place] past 21 day No Medical History Blood Transfusion Hx: No Neurological: NONE EENT: NONE Cardiovascular: hyperlipidemia Respiratory: asthma Gastrointestinal: GERD Hepatic: NONE Renal: NONE Musculoskeletal: osteoarthritis Psychiatric: NONE Endocrine: NONE Blood Disorders: NONE Cancer(s): NONE VAPOR COATER/Reproductive: NONE Other Medical Hx: Nonhealing wound ulcer left leg Surgical History Surgical History: Right arm surgery SKIN GRAFTS Psychosocial History Where Do You Live? Home Who Do You Live With? self Services at Home: None Primary Language: Albanian Smoking Status: Current Everyday Smoker ETOH Use: denies use Illicit Drug Use: denies illicit drug use Living Will? yes Other Social History: Social history is significant for greater than 40 year History of tobacco abuse, currently using electronic cigarettes. She denies alcohol or illicit drug use. Family history is significant for a father who passed from cancer and a mother with scleroderma; Rosa's sister recently passed due to ETOH abuse. Rosa lives at home with her cat and ambulates with a cane. Functional Ability ADLs Independent: dressing, eating, toileting, bathing. Ambulation: cane IADLs Independent: shopping, housework, finances, food prep, telephone, transportation , medication admin. Exam & Diagnostic Data Vital Signs and I&O Vital Signs Date Time Temp Pulse Resp B/P B/P Pulse O2 O2 Flow FiO2 Mean Ox Delivery Rate 02/03 1450 97.5 73 18 100/60 99 Nasal Cannula 02/03 1112 93 Nasal 3.0L Cannula 02/03 0800 93 Nasal 3.0L Cannula 02/03 0751 94 Nasal 3.0L Cannula 02/03 0651 97.7 68 20 102/61 97 02/03 0000 93 Nasal 4.0L Cannula 02/02 2215 98.8 79 18 116/58 93 Nasal 4.0L Cannula 02/02 1708 93 Nasal 4.0L Cannula Intake & Output 02/03 1600 02/03 0400 02/02 1600 02/02 0400 02/01 1600 02/01 0400 Intake Total 340 120 778 148 7207 Output Total 1500 900 400 950 200 Balance -1160 120 -100 -150 970 -200 Intake, IV 430 1160 Intake, Oral 340 120 370 250 760 Number 1 Bowel Movements Output, Urine 1500 900 400 950 200 Patient 260 lb 260 lb Weight Weight Reported by Patient Measurement Method Physical Exam: General: Well-developed, obese white female in NAD Skin: No rash or jaundice; see extremities below HEENT: Conjunctivae pink, sclerae anicteric, mucous membranes moist Neck: Without masses or thyromegaly, no supraclavicular or cervical adenopathy Chest: Scattered wheezes bilaterally Heart: Regular rate and rhythm without S3 or rub Abdomen: Obese, soft and nontender without palpable masses or organomegaly Extremities: Without edema on right, left lower leg is edematous and erythematous with intact dressing Neuro: No focal findings, no asterixis or myoclonus Assessment/Plan Assessment/Recommendations Assessment: 66-year-old woman with acute kidney injury that appears to be nonoliguric and is probably a combination of contrast nephropathy and ATN secondary to sepsis. Doubt this sudden onset is related to vancomycin toxicity but given her multiple drug allergies, it is not inconceivable that there may be an element of rapid development of acute interstitial nephritis. The clinical history and the absence of rash or eosinophilia makes this diagnosis quite unlikely. We also cannot as yet absolutely rule out a prerenal (her blood pressures have recently been low) or obstructive component. Recommendations: 1. Renal ultrasound to rule out an obstructive component 2. Trial of gentle hydration i.e. IV normal saline at 100 mL per hour 3. No need to change clindamycin dosing but vancomycin will need to be dosed per levels 4. Monitor intake and output, chemistries daily Thank you. Will follow up.
--- NOTE | 2017-02-03 17:14 | PN- Infect Dx ---
Subjective Subjective: No fever; Redness/swelling L LE. No BM. Review of Systems Comments: 12 points reviewed as noted; otherwise negative. Objective Last 24 Hrs of Vital Signs/I&O Vital Signs Date Time Temp Pulse Resp B/P B/P Pulse O2 O2 Flow FiO2 Mean Ox Delivery Rate 02/03 1600 94 Nasal 3.0L Cannula 02/03 1600 93 Nasal 3.0L Cannula 02/03 1450 97.5 73 18 100/60 99 Nasal Cannula 02/03 1112 93 Nasal 3.0L Cannula 02/03 0800 93 Nasal 3.0L Cannula 02/03 0751 94 Nasal 3.0L Cannula 02/03 0651 97.7 68 20 102/61 97 02/03 0000 93 Nasal 4.0L Cannula 02/02 2215 98.8 79 18 116/58 93 Nasal 4.0L Cannula 02/02 1708 93 Nasal 4.0L Cannula Intake & Output 02/03 1600 02/03 0800 05 0000 Intake Total 750 340 120 Output Total 800 1500 Balance -50 -1160 120 Intake, Oral 750 340 120 Output, Urine 800 1500 Patient 260 lb Weight Physical Exam Other Physical Findings: General Appearance , Cooperative, No Acute Distress, Elevated BMI HEENT Atraumatic, EOMI Neck Supple, +2 Carotid Pulse wo Bruit Lymphatic Cervical nl Cardiovascular Regular Rate, Normal S1, Normal S2 Lungs Diffuse wheezes, poor inspiratory effort Abdomen Soft, No Tenderness, Protuberant Neurological Strength at 5/5 X4 Ext, Normal Tone, Sensation Intact Extremities No Clubbing, No Cyanosis, 2+ edema of bilateral lower extremities L> R Vascular Normal Pulses, Pulses Symmetrical Skin Severe erythema of left lower extremity to upper littlejohn, lymphangitic streak tracking up L inner thigh; ulceration mid anterior littlejohn ~ 4 x 3.5 cm; shallow ulcer medial malleolus left foot Neuro: Alert, Oriented X3 Results Last 24 Hours of Lab Results: Laboratory Tests 02/03 02/03 1510 0645 Chemistry Sodium (137 - 145 mmol/L) 138 Potassium (3.5 - 5.1 mmol/L) 3.9 Chloride (98 - 107 mmol/L) 100 Carbon Dioxide (22 - 30 mmol/L) 28 Anion Gap (5 - 16) 11 BUN (7 - 17 mg/dL) 26 H Creatinine (0.5 - 1.0 mg/dL) 2.0 H Estimated GFR (>60 ml/min) 25 L BUN/Creatinine Ratio (7 - 25 %) 13.0 Hematology CBC w Diff NO MAN DIFF REQ WBC (4.8 - 10.8 /CUMM) 11.8 H RBC (4.20 - 5.40 /CUMM) 3.87 L Hgb (12.0 - 16.0 G/DL) 12.1 Hct (37 - 47 %) 36.1 L MCV (81.0 - 99.0 FL) 93.1 MCH (27.0 - 31.0 PG) 31.3 H RDW (11.5 - 14.5 %) 15.2 H Plt Count (130 - 400 /CUMM) 136 MPV (7.4 - 10.4 FL) 10.4 Gran % (42.2 - 75.2 %) 81.8 H Lymphocytes % (20.5 - 51.1 %) 9.7 L Monocytes % (1.7 - 9.3 %) 6.9 Eosinophils % (0 - 5 %) 1.3 Basophils % (0.0 - 2.0 %) 0.3 Absolute Granulocytes (1.4 - 6.5 /CUMM) 9.6 H Absolute Lymphocytes (1.2 - 3.4 /CUMM) 1.1 L Absolute Monocytes (0.10 - 0.60 /CUMM) 0.8 H Absolute Eosinophils (0.0 - 0.7 /CUMM) 0.2 Absolute Basophils (0.0 - 0.2 /CUMM) 0 PUBS MCHC (33.0 - 37.0 G/DL) 33.5 Toxicology Random Vancomycin (ug/ml) 17.0 Urines Ur Random Creatinine (mg/dL) 88.9 Ur Random Sodium (30 - 90 mmol/L) 9 L Ur Random Potassium (mmol/L) 17.7 Fraction Sodium Excret (<1% %) 0.1 Last 24 Hours of Fernando Results: SPEC #: [id number] CARLI: 02/01/17 STATUS: COMP RECD: 02/01/17-[address]: JOELLEN RODRIGUES,[facility] SOURCE: AMY ENTR: 02/01/17-[address]: MAHSA RODRIGUES,MYRON Mckenzie SPDESC: CAROLYNE RENEE MD,RAMANDEEP Higginbotham ORDERED: XTRM CULT COMMENT: TYPE OF SPECIMEN: SUPERFICIAL Procedure Result > GRAM STAIN Final 02/02/17-0900 WHITE BLOOD CELLS FEW GRAM POSITIVE COCCI FEW > EXTREMITIES CULTURE Final 02/03/17-1104 Scant growth of Mixed kirstie after 2 days with Moderate growth of: BETA STREP GROUP A REPORTED TO AND READ BACK BY: GINA AT 0857 02/02/17 LAB.SVC[facility] Penicillin and Ampicillin are drugs of choice for beta-hemolytic streptococcal infections. Susceptibility testing of penicillins and other beta-lactams are not routinely performed because non-susceptible isolates have only rarely been reported. Note: If patient is allergic to Penicillin, the laboratory can perform Clindamycin testing upon request. Please call within 5 days of final report. Recent Imaging Studies: DUS L LE There is no Humphrey's cyst. IMPRESSION: Normal triplex scan without evidence of deep venous thrombosis involving the lower extremities. DICTATED BY: REBECCA CERVANTES MD DATE/TIME DICTATED:02/01/171420 OXYGEN THERAPY TEACHER:MONICA DATE/TIME TRANSCRIBED:02/01/171420 Assessment/Plan Impression: 66 year old female known with GERD, morbid obesity, asthma, previous Streptococcus group A and Staph aureus cellulitis admitted on 01/31/17 with sepsis. L LE cellulitis (Strep gr. A) Non-healing left leg ulcer/elevated ESR/planned further imaging eval OM Fever/resolved Leukocytosis w/ left shift; WBC trending down STACIE/creatinine trending up COPD exac Suggestion: 1. Trend CBC, BMP. Elevated vancomycin trough; discontinue iv vancomycin; continue iv clindamycin 600 mg iv q 8 h. Alternative to treating w/ Clindamycin consider iv Unasyn 1.5 gm q 6 h (per patient no true allergy to PCN). 2. L nonhealing ulcer culture; repeat imaging eval OM once STACIE resolved 3. Trend CBC/BMP.
[2017-02-03 22:37] VITALS: BP 98/58
[2017-02-04] VITALS: BP 104/60
[2017-02-04 07:39] VITALS: BP 110/60
--- NOTE | 2017-02-04 07:48 | PN- Housestaff ---
TARAN RODRIGUES,KRRAJ 02/04/17 0728: Subjective Follow-up For: cellulitis Subjective: Saw pt at bedside this AM. She had no acute overnight events or complaints. She stated that she was feeling better this AM. Review of Systems Constitutional: Denies: chills, malaise, weakness. EENTM: Denies: blurred vision. Cardiovascular: Denies: chest pain, palpitations. Respiratory: Reports: short of breath. Gastrointestinal: Reports: no symptoms. Genitourinary: Reports: no symptoms. Musculoskeletal: Reports: no symptoms. Objective Last 24 Hrs of Vital Signs/I&O Vital Signs Date Time Temp Pulse Resp B/P B/P Pulse O2 O2 Flow FiO2 Mean Ox Delivery Rate 02/04 0000 80 104/60 02/04 0000 94 Nasal 3.0L Cannula 02/04 0000 94 Nasal 3.0L Cannula 02/03 2237 98.2 85 20 98/58 95 Nasal 4.0L Cannula 02/03 1600 94 Nasal 3.0L Cannula 02/03 1600 93 Nasal 3.0L Cannula 02/03 1450 97.5 73 18 100/60 99 Nasal Cannula 02/03 1112 93 Nasal 3.0L Cannula 02/03 0800 93 Nasal 3.0L Cannula 02/03 0751 94 Nasal 3.0L Cannula Intake & Output 02/04 0800 02/04 0000 02/03 1600 Intake Total 120 1000 750 Output Total 300 800 800 Balance -180 200 -50 Intake, IV 400 Intake, Oral 120 600 750 Number 0 Bowel Movements Output, Urine 300 800 800 Patient 117.934 kg Weight Physical Exam General Appearance: Alert, Oriented X3, Cooperative, No Acute Distress Skin: LLE. weapped in bandages. Exposed foot is reythematous and swollen HEENT: Atraumatic, PERRLA, EOMI Neck: Supple Cardiovascular: Regular Rate, Normal S1, Normal S2, No Murmurs Lungs: Normal Air Movement Abdomen: Soft, No Tenderness Neurological: Normal Speech Extremities: see skin, +2 edema in bilat LLE>RLE. Current Medications: Current Medications Sig/Pop Start time Last Medication Dose Route Stop Time Status Admin Acetaminophen 650 MG Q4P PRN 02/03 1130 AC PO Acetaminophen 650 MG Q6P PRN 01/31 2345 AC 02/02 PO 1843 Albuterol Sulfate 3 ML TID 02/01 1046 AC 02/03 INH 2043 Albuterol Sulfate 2 PUF Q4 HRS NEEDED PRN 01/31 2345 AC INH Atorvastatin Calcium 10 MG DAILY 02/01 1000 AC 02/03 PO 0959 Budesonide/ 2 PUF BID 02/03 1311 DC Formoterol Fumarate INH Budesonide/ 2 PUF BID 02/01 1000 AC 02/03 Formoterol Fumarate INH 2110 Clindamycin 600 MG IQ8 02/01 0000 AC 02/04 Dextrose/Water 50 ML IV 0019 Enoxaparin Sodium 40 MG DAILY 02/02 1000 DC 02/03 SC 0959 Heparin Sodium 5,000 UNIT Q8 02/03 1400 AC 02/04 (Porcine) SC 0603 Ipratropium [place] 2.5 ML TID 02/01 1047 AC 02/03 INH 2043 Methyl Salicylate 1 EYAD Q6-PRN PRN 02/02 1200 AC 02/02 TOP 1253 Nystatin 1 EYAD TID PRN 02/01 1415 AC TOP Omeprazole 40 MG DAILY AC 02/01 0700 AC 02/04 PO 0604 Oxycodone/ 1 TAB Q6 PRN 01/31 2345 DC Acetaminophen PO Oxycodone/ 2 TAB Q6P PRN 01/31 2345 AC 02/02 Acetaminophen PO 2318 Patient Medication 1 ED .STK-MED ONE 02/03 1355 DC Teaching ED 02/03 1356 Sodium Chloride 1,000 ML Q10H 02/03 1630 AC 02/04 IV 02/04 1229 0311 Vancomycin HCl 1,500 MG 02/03 220 CAN Sodium Chloride 250 ML IV Zolpidem Tartrate 5 MG AT BEDTIME 02/03 2200 AC 02/04 PO 0025 Last 24 Hrs of Lab/Fernando Results Last 24 Hrs of Labs/Mics: Laboratory Tests 02/04/17 0628: Sodium Pending, Potassium Pending, Chloride Pending, Carbon Dioxide Pending, Anion Gap Pending, BUN Pending, Creatinine Pending, BUN/Creatinine Ratio Pending , CBC w Diff Pending, WBC Pending, RBC Pending, Hgb Pending, Hct Pending, MCV Pending, MCH Pending, RDW Pending, Plt Count Pending, MPV Pending, PUBS MCHC Pending 02/03/17 1510: Ur Random Creatinine 88.9, Ur Random Sodium 9 L, Ur Random Potassium 17.7, Fraction Sodium Excret 0.1 Assessment/Plan Assessment: Ms. Platt is a 66 year old female with PMH GERD, asthma, morbid obesity, previous strep A and staph aureus cellulitis and non-healing left leg ulcer who presents with a one day history of left lower extremity erythema, swelling and non-healing ulcer. She also noted decreased appetite, subjective fever, chills and shortness of breath with cough. Patient was initially admitted to the ICU and on 02/01 was transferred to once Nec fasc was ruled out. PLAN 1. Sepsis secondary to left lower extremity cellulitis: Initial Lower Extremity CT: Subcutaneous edema. No focal fluid collection or abscess. Her OR culture growing heavy strep. Hx of strep and staph cellulitis. Pt initially started on vancomycin and Clindamycin on 01/31. Vancomycin Trough 02/02/2017: 18.9 and pt's Cr went from 1.2-->2.0 likely 2/2 contrast induced nephropathy. Given ARF on Vanco d/c. Will con't pt on Clindamycin; if pt does not respond to regimen will switch to Unasyn 1.5 q6. * Cont' Clindamycin--> ??Switch to Unasyn (DAY 5 of antibiotics) * D/C Vanco (Last dose on 02/02/2017) * Lower extremity doppler is negative for clot * Consult w/ Dr. Hernandez as he sees patient outpatient for non-healing ulcers * Elevate legs * Jaeger culture, monitor for fevers. * Plastics following. Thank you for recs 2. ARF: On 02/03 pt's Cr noted to go from 1.2-->2. She recieved contrast for imaging; in addition to Vancomycin administration. DDX: Contrast induced nephropathy vs AIN vs. ATN. Renal US negative for obstruction. Her BUN/Cr < 20, but her Urine lytes show Na 9 and FENa .1; pre-renal vs intrinsic?? * Thank you nephrology consult * Hydration with 100cc/hr * D/C vanco * Con't Clindamycin * Monitor BEP and Cr closely * Switch Lovenox to SQ Heparin 3. Acute hypoxic respiratory failure in the setting of asthma/COPD: Patient noted to drop her oxygen saturations to 85% on room air, placed on 3 L NC. CXR x 2 shows no signs of fluid overload, no pathology noted. Due to worsening renal function no CTA. Wells Score < 2 suggesting low probability. Per pulmonary concern for COPD/TAYLOR/Tracheomalacia * DDx: Asthma exacerbation, PE, fluid overload?, * Provide supplemental O2 to maintain O2 sats >92% * [place] evaluation * No systemic steroids for now * Started symbicort 02/02/2017 4. GERD * Continue omeprazole daily 5. HLD * Continue statin DNR/DNI (will accept a central line) Heart Healthy Diet DVTP: SC lovenox Problem List: 1. Cellulitis 2. Left leg cellulitis 3. Leukocytosis Pain Ratin Pain Location: none Pain Goal: Remain pain free Pain Plan: none Tomorrow's Labs & Rationales: cbc bep DVT/Prophylaxis: pharmacological RAMANDEEP RENEE MD 02/04/17 1403: Attending MD Review Statement Attending Statement Attending MD Statement: examined this patient, agreed w/resident/PA/WIRE GALVANIZER, reviewed EMR data (avail), amended to note Attending Assessment/Plan: Ms. Platt appears comfortable and she is examined this afternoon. She still notes some pain in her left lower extremity. She denies fever and chills. Her wound was examined with Drs. Gardner and Liam present. Her temperature is 99.8. Her oxygen saturation levels remained in the low 90s with 3 L. Nasal cannula. Pulmonary exam shows decreased breath sounds with continued expiratory musical wheezes. Neovascular exam is benign. Examination of her left lower extremities shows a violaceous color from just beneath the knee to just above the ankle. There are noted to be nonhealing ulcers of the midshin reason and beneath the left medial malleolus. There is also noted to be a proximal medial service the remnants of a large vesicle. Her WBC has continued to decrease. Her creatinine was noted to rise to 2.2 today. The cellulitis of her left leg continues to improve. Given her culture results I again think that we can change her to ampicillin with adjustment for her renal function. I appreciate the note from Bladimir Damian MD and we will continue with hydration and serial renal function determinations. We will also continue with plan for her pulmonary function as presented by Dr. nAaya.
[2017-02-04 08:00] LABS: ABSOLUTE BASOPHIL COUNT 0 /CUMM (0.0-0.2); ABSOLUTE EOSINOPHIL COUNT 0.2 /CUMM (0.0-0.7); ABSOLUTE GRANULOCYTE CT 6.6 /CUMM (1.4-6.5); ABSOLUTE LYMPH COUNT 1.1 /CUMM (1.2-3.4); ABSOLUTE MONOCYTE COUNT 0.9 /CUMM (0.10-0.60); BASOPHIL % 0.2 % (0.0-2.0); EOSINOPHIL % 2.6 % (0-5); GRANULOCYTE % 74.2 % (42.2-75.2); HEMATOCRIT 33.8 % (37-47); MEAN CORPUSCULAR HGB 30.8 PG (27.0-31.0); MEAN CORPUSCULAR HGB CONC 33.2 G/DL (33.0-37.0); MEAN PLATELET VOLUME 10.2 FL (7.4-10.4); PLATELET COUNT 145 /CUMM (130-400); RBC DISTRIBUTION WIDTH 15.7 % (11.5-14.5); RED BLOOD CELL CT 3.64 /CUMM (4.20-5.40); WHITE BLOOD CELL COUNT 8.9 /CUMM (4.8-10.8)
--- NOTE | 2017-02-04 08:54 | PN- Wound Care ---
Subjective Subjective: Patient continues to have significant erythema. White count has improved. He is being hydrated for acute kidney injury. Objective Vital Signs and I&Os Vital Signs Result Date Time Pulse Ox 91 02/04 815 O2 Delivery Nasal Cannula 02/04 815 O2 Flow Rate 3.0L 02/04 0815 B/P 110/60 02/04 0739 Temp 99.1 02/04 0739 Pulse 86 02/04 0739 Resp 20 02/04 0739 Intake & Output 02/04 0000 02/03 1600 02/03 0800 Intake Total 1000 750 340 Output Total 153 501 7292 Balance Intake, IV 400 Intake, Oral 600 750 340 Number 0 Bowel Movements Output, Urine 186 686 0603 Patient 260 lb Weight Exam of the left lower extremity continues to show significant erythema and bullous changes secondary to strep soft tissue skin infection. Multiple wounds continue have similar appearance Impression/Plan Impression/Plan Impression/Plan: 66-year-old woman with chronic venous stasis ulcers status post vein closure who is had persistent ulceration despite compression therapy antibiotics and elevation in conjunction with vein closure. Following debridement she's developed an acute soft tissue infection with persistent concern over possible osteomyelitis though recent imaging has been negative. Dr. Suarez at the time of his debridement did not feel osteomyelitis was present. Recommend aggressive leg elevation wound care with nonadherent dressing daily cleansing. If Aquacel Ag present this would be preferable dressing. Patient will have repeat imaging to exclude osteomyelitis in view of increased sedimentation rate
--- NOTE | 2017-02-04 09:09 | ULTRASOUND REPORT ---
EXAMINATION: US RETROPERITONEAL COMPLETE (RENAL) CLINICAL INFORMATION: Rising creatinine. Acute renal failure. COMPARISON: MRI scan of the abdomen dated 08/10/2014. TECHNIQUE: Real-time imaging of the kidneys and bladder. FINDINGS: RIGHT KIDNEY: 10.0 x 6.1 x 5.0 cm (SAG x AP x TRV). The kidney is normal in size, contour, and echogenicity. Renal cortical thickness is normal. No calculi or focal parenchymal lesions. No hydronephrosis. LEFT KIDNEY: 11.9 x 6.3 x 5.6 cm (SAG x AP x TRV). The left kidney is suboptimally visualized due to overlying bowel gas. The kidney is normal in size, contour, and echogenicity. Renal cortical thickness is normal. No calculi or focal parenchymal lesions. No hydronephrosis. BLADDER: Incompletely distended. The patient voided prior to the exam. This makes evaluation difficult. Bilateral ureteral jets are not demonstrated. IMPRESSION: 1. No evidence of renal obstruction. 2. Renal size asymmetry is seen with the left kidney approximately 2 cm longer than the right kidney. No associated thinning of the renal cortex is seen and findings may be related to technical factors rather than a true size discrepancy. On previous MRI scan of the abdomen from 2013, no size asymmetry was seen. Of note, the MRI scan had shown several small T2 bright cysts in the kidneys, which are not appreciated on this ultrasound. 3. Bladder incompletely assessed.
--- NOTE | 2017-02-04 09:52 | PN- Pulmonary ---
Subjective HPI/Critical Care Issues: Sleeping and noted apneas consistant with vaishali On oxygen Wheeze better afebrile creat 2.2 Objective Current Medications: Current Medications Sig/Pop Start time Last Medication Dose Route Stop Time Status Admin Acetaminophen 650 MG Q4P PRN 02/03 1130 AC PO Acetaminophen 650 MG Q6P PRN 01/31 2345 AC 02/02 PO 1843 Albuterol Sulfate 3 ML TID 02/01 1046 AC 02/04 INH 0811 Albuterol Sulfate 2 PUF Q4 HRS NEEDED PRN 01/31 2345 AC INH Atorvastatin Calcium 10 MG DAILY 02/01 1000 AC 02/04 PO 0851 Budesonide/ 2 PUF BID 02/03 1311 DC Formoterol Fumarate INH Budesonide/ 2 PUF BID 02/01 1000 AC 02/04 Formoterol Fumarate INH 0851 Clindamycin 600 MG IQ8 02/01 0000 AC 02/04 Dextrose/Water 50 ML IV 0742 Enoxaparin Sodium 40 MG DAILY 02/02 1000 DC 02/03 SC 0959 Heparin Sodium 5,000 UNIT Q8 02/03 1400 AC 02/04 (Porcine) SC 0603 Ipratropium [place] 2.5 ML TID 02/01 1047 AC 02/04 INH 0811 Methyl Salicylate 1 EYAD Q6-PRN PRN 02/02 1200 AC 02/02 TOP 1253 Nystatin 1 EYAD TID PRN 02/01 1415 AC TOP Omeprazole 40 MG DAILY AC 02/01 0700 AC 02/04 PO 0604 Oxycodone/ 1 TAB Q6 PRN 01/31 2345 DC Acetaminophen PO Oxycodone/ 2 TAB Q6P PRN 01/31 2345 AC 02/02 Acetaminophen PO 2318 Patient Medication 1 ED .STK-MED ONE 02/03 1355 DC Teaching ED 02/03 1356 Sodium Chloride 1,000 ML Q10H 02/03 1630 AC 02/04 IV 02/04 1229 0311 Vancomycin HCl 1,500 MG 02/03 CAN Sodium Chloride 250 ML IV Zolpidem Tartrate 5 MG AT BEDTIME 02/03 2200 AC 02/04 PO 0025 Vital Signs & I&O Last 24 Hrs of Vitals and I&O: Vital Signs Date Time Temp Pulse Resp B/P B/P Pulse O2 O2 Flow FiO2 Mean Ox Delivery Rate 02/04 0815 91 Nasal 3.0L Cannula 02/04 0739 99.1 86 20 110/60 91 Nasal 4.0L Cannula 02/04 0000 80 104/60 05 0000 94 Nasal 3.0L Cannula 02/04 0000 94 Nasal 3.0L Cannula 02/03 2237 98.2 85 20 98/58 95 Nasal 4.0L Cannula 02/03 1600 94 Nasal 3.0L Cannula 02/03 1600 93 Nasal 3.0L Cannula 02/03 1450 97.5 73 18 100/60 99 Nasal Cannula 02/03 1112 93 Nasal 3.0L Cannula Intake & Output 02/04 1600 02/04 0800 02/04 0000 Intake Total 1040 1000 Output Total 300 800 Balance 740 200 Intake, IV 800 400 Intake, Oral 240 600 Number 0 0 Bowel Movements Output, Urine 300 800 Laboratory Tests 02/04 02/03 0628 1510 Chemistry Sodium (137 - 145 mmol/L) 140 Potassium (3.5 - 5.1 mmol/L) 4.4 Chloride (98 - 107 mmol/L) 103 Carbon Dioxide (22 - 30 mmol/L) 25 Anion Gap (5 - 16) 12 BUN (7 - 17 mg/dL) 25 H Creatinine (0.5 - 1.0 mg/dL) 2.2 H Estimated GFR (>60 ml/min) 22 L BUN/Creatinine Ratio (7 - 25 %) 11.4 Hematology CBC w Diff NO MAN DIFF REQ WBC (4.8 - 10.8 /CUMM) 8.9 RBC (4.20 - 5.40 /CUMM) 3.64 L Hgb (12.0 - 16.0 G/DL) 11.2 L Hct (37 - 47 %) 33.8 L MCV (81.0 - 99.0 FL) 93.0 MCH (27.0 - 31.0 PG) 30.8 RDW (11.5 - 14.5 %) 15.7 H Plt Count (130 - 400 /CUMM) 145 MPV (7.4 - 10.4 FL) 10.2 Gran % (42.2 - 75.2 %) 74.2 Lymphocytes % (20.5 - 51.1 %) 12.6 L Monocytes % (1.7 - 9.3 %) 10.4 H Eosinophils % (0 - 5 %) 2.6 Basophils % (0.0 - 2.0 %) 0.2 Absolute Granulocytes (1.4 - 6.5 /CUMM) 6.6 H Absolute Lymphocytes (1.2 - 3.4 /CUMM) 1.1 L Absolute Monocytes (0.10 - 0.60 /CUMM) 0.9 H Absolute Eosinophils (0.0 - 0.7 /CUMM) 0.2 Absolute Basophils (0.0 - 0.2 /CUMM) 0 PUBS MCHC (33.0 - 37.0 G/DL) 33.2 Urines Ur Random Creatinine (mg/dL) 88.9 Ur Random Sodium (30 - 90 mmol/L) 9 L Ur Random Potassium (mmol/L) 17.7 Fraction Sodium Excret (<1% %) 0.1 02/03 0645 Chemistry Sodium (137 - 145 mmol/L) 138 Potassium (3.5 - 5.1 mmol/L) 3.9 Chloride (98 - 107 mmol/L) 100 Carbon Dioxide (22 - 30 mmol/L) 28 Anion Gap (5 - 16) 11 BUN (7 - 17 mg/dL) 26 H Creatinine (0.5 - 1.0 mg/dL) 2.0 H Estimated GFR (>60 ml/min) 25 L BUN/Creatinine Ratio (7 - 25 %) 13.0 Hematology CBC w Diff NO MAN DIFF REQ WBC (4.8 - 10.8 /CUMM) 11.8 H RBC (4.20 - 5.40 /CUMM) 3.87 L Hgb (12.0 - 16.0 G/DL) 12.1 Hct (37 - 47 %) 36.1 L MCV (81.0 - 99.0 FL) 93.1 MCH (27.0 - 31.0 PG) 31.3 H RDW (11.5 - 14.5 %) 15.2 H Plt Count (130 - 400 /CUMM) 136 MPV (7.4 - 10.4 FL) 10.4 Gran % (42.2 - 75.2 %) 81.8 H Lymphocytes % (20.5 - 51.1 %) 9.7 L Monocytes % (1.7 - 9.3 %) 6.9 Eosinophils % (0 - 5 %) 1.3 Basophils % (0.0 - 2.0 %) 0.3 Absolute Granulocytes (1.4 - 6.5 /CUMM) 9.6 H Absolute Lymphocytes (1.2 - 3.4 /CUMM) 1.1 L Absolute Monocytes (0.10 - 0.60 /CUMM) 0.8 H Absolute Eosinophils (0.0 - 0.7 /CUMM) 0.2 Absolute Basophils (0.0 - 0.2 /CUMM) 0 PUBS MCHC (33.0 - 37.0 G/DL) 33.5 Toxicology Random Vancomycin (ug/ml) 17.0 Microbiology Date/Time Procedure - Status Source Growth 02/01 1500 Culture & Sensitivity - COMP EXTREMITIE BETA STREP GROUP A 02/01 1500 Gram Stain - COMP EXTREMITIE Impression/Plan Impression/Plan Impression/Plan: Well-developed well-nourished obese female, looks stated age, no apparent distress. HEENT: Atraumatic, extraocular motion intact Neck: Supple, no lymphadenopathy Respiratory: Mild increased respiratory rate and effort Heart: Tachycardic Abdomen: Obese Extremities: Right lower extremity benign Left lower extremity with severe erythema circumferentially to the lower leg sparing the foot. The erythema warmth swelling and tenderness extends from the tibial tubercle region down to the ankle joint and circumferentially encompassing the lower leg. Erythema is most concentrated around the central midportion of the anterior tibia with there is an approximate 4 x 3.5 cm open wound with small amount of mucopurulent and granulation tissue present in the wound, this is where the biopsy was taken from according to the patient. Exposed fascia is noted, no exposed bone. There is significant warmth erythema swelling and induration around the ulceration. There is a smaller 1 cm chronic nonhealing wound at the medial ankle region. Dorsal pedal pulses are intact 2+ There is faint lymphangitic streaking noted to the medial thigh and into the groin with mild tenderness in this area. The significant erythema of the lower leg has been outlined in ink by the emergency room staff No significant calf tenderness and a negative Homans sign Neuro: Alert and oriented x3 Psych: Mood affect normal, normal memory normal judgment. Lower extremity Doppler negative for DVT IMPRESSION This is a lady with chronic lower extremity venous ulcer, chronic edema of the leg, morbid obesity, recent surgery to the lower extremity with wound VAC placement and graft done by Dr. Stone Stiles now comes in with * Significant lower extremity left-sided cellulitis in a lady with chronic left sided venous insufficiency and peripheral vascular disease (high white count, normal gap and lactic acid, with sig fever)- pt growing strep A from the OR cultures\ * Acute renal failure due to Prob contrast induce nephropathy needs follow up * Multiple antibiotic allergies including penicillin * Significant leukocytosis and fever improving * History of asthma with prob sig copd with more than 40 pack yr smoker with mild bronchospasm, now with hypoxemia probably related to VQ mismatch. Unlikely that she has any other pulmonary pathology including pulmonary embolism. However prob has sig copd * Prob tracheomalacia * Morbid obesity, with noted apneas with sig vaishali clinically RECOMMENDATION ATC nebs sputum culture Nebs duoneb and No steroids systemically Infectious disease to follow Start symbicort 160 2 puff bid Change lovenox to sub cut heparin as her renal function is worse Wean oxygen as natalio
--- NOTE | 2017-02-04 10:22 | PN- Student ---
Subjective Subjective: Patient seen this morning laying in bed with elevated left leg. No acute overnight reports. Patient endorses burning, 5 out of 10 pain in the left leg. Objective Objective: Vital Signs Date Time Temp Pulse Resp B/P B/P Pulse O2 O2 Flow FiO2 Mean Ox Delivery Rate 02/04 0815 91 Nasal 3.0L Cannula 02/04 0800 93 Nasal 3.0L Cannula 02/04 0800 93 Nasal 3.0L Cannula 02/04 0739 99.1 86 20 110/60 91 Nasal 4.0L Cannula 02/04 0000 80 104/60 05/ 0000 94 Nasal 3.0L Cannula 02/04 0000 94 Nasal 3.0L Cannula 02/03 2237 98.2 85 20 98/58 95 Nasal 4.0L Cannula 02/03 1600 94 Nasal 3.0L Cannula 02/03 1600 93 Nasal 3.0L Cannula 02/03 1450 97.5 73 18 100/60 99 Nasal Cannula Intake & Output 02/04 1600 02/04 0800 02/04 0000 Intake Total 1040 1000 Output Total 300 800 Balance 740 200 Intake, IV 800 400 Intake, Oral 240 600 Number 0 0 Bowel Movements Output, Urine 300 800 Physical Exam General Appearance: Alert, Oriented X3, Cooperative, No Acute Distress Skin: Left lower extremity. Wrapped in bandages. Exposed foot is erythematous and swollen HEENT: Atraumatic, PERRLA, EOMI Neck: Supple Cardiovascular: Regular Rate, Normal S1, Normal S2, No Murmurs Lungs: Normal Air Movement Abdomen: Soft, No Tenderness Neurological: Normal Speech Extremities: see skin, +2 edema in bilat Left lower extremity > Right lower extremities. Current Medications Sig/Pop Start time Last Medication Dose Route Stop Time Status Admin Acetaminophen 650 MG Q4P PRN 02/03 1130 AC PO Acetaminophen 650 MG Q6P PRN 01/31 2345 AC 02/02 PO 1843 Albuterol Sulfate 3 ML TID 02/01 1046 AC 02/04 INH 1253 Albuterol Sulfate 2 PUF Q4 HRS NEEDED PRN 01/31 2345 AC INH Atorvastatin Calcium 10 MG DAILY 02/01 1000 AC 02/04 PO 0851 Budesonide/ 2 PUF BID 02/01 1000 AC 02/04 Formoterol Fumarate INH 0851 Clindamycin 600 MG IQ8 02/01 0000 AC 02/04 Dextrose/Water 50 ML IV 0742 Heparin Sodium 5,000 UNIT Q8 02/03 1400 AC 02/04 (Porcine) SC 0603 Ipratropium [place] 2.5 ML TID 02/01 1047 AC 02/04 INH 1253 Methyl Salicylate 1 EYAD Q6-PRN PRN 02/02 1200 AC 02/02 TOP 1253 Nystatin 1 EYAD TID PRN 02/01 1415 AC TOP Omeprazole 40 MG DAILY AC 02/01 0700 AC 02/04 PO 0604 Oxycodone/ 2 TAB Q6P PRN 01/31 2345 AC 02/02 Acetaminophen PO 2318 Patient Medication 1 ED .STK-MED ONE 02/03 1355 DC Teaching ED 02/03 1356 Sodium Chloride 1,000 ML Q10H 02/04 1245 AC 02/04 IV 02/05 0844 1241 Sodium Chloride 1,000 ML Q10H 02/03 1630 DC 02/04 IV 02/04 1229 0311 Vancomycin HCl 1,500 MG 2200 02/03 2200 CAN Sodium Chloride 250 ML IV Zolpidem Tartrate 5 MG AT BEDTIME 02/03 2200 AC 02/04 PO 0025 Assessment/Plan Assessment: Patient is a 66-year-old woman with a past medical history significant for GERD, morbid obesity, asthma, peripheral vascular disease, previous Group A Strep. and Staph. aureus cellulitis, and a nonhealing left leg ulcer who presented to [facility] with one day history of left lower extremity erythema, swelling , and the presence of a nonhealing ulcer. 1 - Cellutitis secondary to Group A Strep. infection 2 - Ulceration secondary to chronic venous insufficiency 3 - Contrast-induced nephropathy 4 - Hypoxemia secondary to underlying COPD 1 - Cellulitis secondary to Group A Strep. infection: CT of the left lower extremity demonstrated mild subcutaneous edema with no focal collection of fluid , no abcess, and no evidence for necrotizing fasciitis. Cultures grew Group A Strep. she has a history of Group A Strep. and Staph. aureus cellulitis. Was initially started on Vancomycin and Clindamycin on 01/31. Vancomycin trough on was 18.9. Creatinine is trending upwards from 1.0 to 2.2 likely due to contrast-induced nephropathy. As a result of ARF, Vancomycin was discontinued. Switch to Unasyn if the patient does not respond to Clindamycin. * ESR 85. Rule out Osteomyelitis with repeat imaging * Continue with Clindamycin 600 mg IV Q8 (Day 5 of antibiotic) * Consider switching to Unacyn 1.5 mg Q6 * Bilateral lower extremity doppler is negative for DVT * Elevate legs 2 - Ulceration secondary to chronic venous insufficiency: Patient had a large fluid-filled bulla 10 x 6 cm that was cleansed with Betadine. Currently has 2 chronic venous stasis ulcers: one over the left medial malleolus (1.5 x 0.5 cm) and one over the left pretibial area (4 x 2.5 cm). Ulceration is persistent despite antibiotics and elevation in conjunction with vein closure. * Aggressive left lower extremity elevation * Daily cleaning * Use of nonadherent dressing * Repeat imaging to rule out osteomyelitis 3 - Contrast-induced nephropathy: Patient underwent contrast imaging on 2016. Creatinine has been trending upwards from 1.0 to 2.2. Renal ultrasound was negative for obstruction. Asymmetry of the left kidney was found; left kidney is 2cm longer than the right. BUN/Cr < 20, Urine sodium 9, FENa 0.1. Consider pre- renal vs. intrinsic. * IV normal saline 100 mL/hr * Creatinine trending upwards. Now at 2.2 * Vancomycin discontinued * Change Lovenox to subcutaneous Heparin 4 - Hypoxemia secondary to underlying COPD: Patient's oxygen saturations dropped to 85% on room air. Was palced on 3 L nasal canula. Both chest x-rays on 2016 showed no evidence for acute disease. No additional CTA scan was ordered due to worsening renal function. Per pulmonary consult, consider COPD/TAYLOR/ Tracheomalacia * ATC nebulized * Sputum culture * No systemic steroids * Follow-up with infectious disease * Started on Symbicort 160 2 puff BID 02/02/2017 * Wean oxygen as tolerated
--- NOTE | 2017-02-04 14:48 | PN- Infect Dx ---
Subjective Subjective: Afebrile. She has decreased pain in the left leg but notes increased erythema. Objective Last 24 Hrs of Vital Signs/I&O Vital Signs Date Time Temp Pulse Resp B/P B/P Pulse O2 O2 Flow FiO2 Mean Ox Delivery Rate 02/05 0815 91 Nasal 3.0L Cannula 02/04 08 93 Nasal 3.0L Cannula 02/04 0800 93 Nasal 3.0L Cannula 02/04 0739 99.1 86 20 110/60 91 Nasal 4.0L Cannula 02/04 0000 80 104/60 02/04 0000 94 Nasal 3.0L Cannula 02/04 0000 94 Nasal 3.0L Cannula 02/03 2237 98.2 85 20 98/58 95 Nasal 4.0L Cannula 02/03 1600 94 Nasal 3.0L Cannula 02/03 1600 93 Nasal 3.0L Cannula 02/03 1450 97.5 73 18 100/60 99 Nasal Cannula Intake & Output 02/04 1600 02/04 0800 02/04 0000 Intake Total 1040 1000 Output Total 300 800 Balance 740 200 Intake, IV 800 400 Intake, Oral 240 600 Number 0 0 Bowel Movements Output, Urine 300 800 Physical Exam Other Physical Findings: She appears comfortable in no acute distress Extremities left leg deep erythema beginning on the dorsum of the foot and extending up to the medial aspect of her thigh; superficial ulcerations over the foot and littlejohn, mildly tender to palpation Results Last 24 Hours of Lab Results: Laboratory Tests 02/04 02/03 0628 1510 Chemistry Sodium (137 - 145 mmol/L) 140 Potassium (3.5 - 5.1 mmol/L) 4.4 Chloride (98 - 107 mmol/L) 103 Carbon Dioxide (22 - 30 mmol/L) 25 Anion Gap (5 - 16) 12 BUN (7 - 17 mg/dL) 25 H Creatinine (0.5 - 1.0 mg/dL) 2.2 H Estimated GFR (>60 ml/min) 22 L BUN/Creatinine Ratio (7 - 25 %) 11.4 Hematology CBC w Diff NO MAN DIFF REQ WBC (4.8 - 10.8 /CUMM) 8.9 RBC (4.20 - 5.40 /CUMM) 3.64 L Hgb (12.0 - 16.0 G/DL) 11.2 L Hct (37 - 47 %) 33.8 L MCV (81.0 - 99.0 FL) 93.0 MCH (27.0 - 31.0 PG) 30.8 RDW (11.5 - 14.5 %) 15.7 H Plt Count (130 - 400 /CUMM) 145 MPV (7.4 - 10.4 FL) 10.2 Gran % (42.2 - 75.2 %) 74.2 Lymphocytes % (20.5 - 51.1 %) 12.6 L Monocytes % (1.7 - 9.3 %) 10.4 H Eosinophils % (0 - 5 %) 2.6 Basophils % (0.0 - 2.0 %) 0.2 Absolute Granulocytes (1.4 - 6.5 /CUMM) 6.6 H Absolute Lymphocytes (1.2 - 3.4 /CUMM) 1.1 L Absolute Monocytes (0.10 - 0.60 /CUMM) 0.9 H Absolute Eosinophils (0.0 - 0.7 /CUMM) 0.2 Absolute Basophils (0.0 - 0.2 /CUMM) 0 PUBS MCHC (33.0 - 37.0 G/DL) 33.2 Urines Ur Random Creatinine (mg/dL) 88.9 Ur Random Sodium (30 - 90 mmol/L) 9 L Ur Random Potassium (mmol/L) 17.7 Fraction Sodium Excret (<1% %) 0.1 Last 24 Hours of Fernando Results: Superficial culture of the left leg February 01 positive for scant growth of mixed kirstie and Group A strep Recent Imaging Studies: Renal ultrasound February 03 negative for obstruction Assessment/Plan Impression: 66 year old woman with GERD, morbid obesity, asthma, previous Group A strep and Staph aureus cellulitis admitted on 01/31/17 with sepsis felt to be secondary to a left leg cellulitis following a biopsy of a nonhealing left leg ulcer on the day prior to admission. Superficial cultures have grown Group A strep, which is the likely pathogen. Her temperatures and white blood cell count have normalized on Vancomycin and Clindamycin, but, given the culture results, her antibiotics can be narrowed. Of note a recent bone scan was negative for osteomyelitis. She has a reported allergy to Penicillin, but this was apparently manifest as GI symptoms and not felt to be a true allergy. Her acute renal failure is felt to be multifactorial, secondary to the IV contrast and sepsis. Suggestion: 1. Elevation of the left leg 2. Discontinue Clindamycin 3. Begin Ampicillin 2 g IV every 12 hours
--- NOTE | 2017-02-04 14:57 | NUR ---
PHYSICAL THERAPY: ATTEMPTED TO SEE PT THIS AFTERNOON. PT AGREEABLE TO PARTICIPATE, BUT NSG NEEDS TO CHANGE IV. UNABLE TO WAIT ANY LONGER D/T END OF SHIFT. PT IS ON P.T. SERVICES 2-3X/WEEK AND WILL BE ATTEMPTED TO BE SEEN AGAIN TOMORROW. THANK YOU.
[2017-02-04 15:09] VITALS: BP 132/66
--- NOTE | 2017-02-04 15:45 | PN- Nephrology ---
Assessment/Plan Assessment: 1. Acute kidney injury secondary to contrast/sepsis - nonoliguric 2. Cellulitis and poorly healing ulcer left lower extremity; wound culture growing beta strep group A 3. Peripheral vascular disease 4. Asthma 5. Multiple drug allergies Suggestion: 1. Continue gentle hydration and to monitor intake and output, chemistries daily 2. Antibiotic therapy per ID Subjective Subjective: Patient feels somewhat better today. Her leg is more erythematous but less tender. Renal ultrasound shows no hydronephrosis. Creatinine up slightly to 2.2 from 2.0. Electrolytes okay. Objective Vital Signs and I&Os Vital Signs Date Time Temp Pulse Resp B/P B/P Pulse O2 O2 Flow FiO2 Mean Ox Delivery Rate 02/04 1509 98.9 81 20 132/66 94 Nasal 3.0L Cannula 02/04 0815 91 Nasal 3.0L Cannula 02/04 0800 93 Nasal 3.0L Cannula 02/04 0800 93 Nasal 3.0L Cannula 02/04 0739 99.1 86 20 110/60 91 Nasal 4.0L Cannula 02/04 0000 80 104/60 05 0000 94 Nasal 3.0L Cannula 02/04 0000 94 Nasal 3.0L Cannula 02/03 2237 98.2 85 20 98/58 95 Nasal 4.0L Cannula 02/03 1600 94 Nasal 3.0L Cannula 02/03 1600 93 Nasal 3.0L Cannula Intake & Output 02/04 1600 02/04 0400 02/03 1600 02/03 0400 02/02 1600 02/02 0400 Intake Total 920 1120 1090 120 800 250 Output Total 1100 2300 900 400 Balance 920 20 -1210 120 -100 -150 Intake, IV 800 400 430 Intake, Oral 416 440 9990 120 370 250 Number 0 0 1 Bowel Movements Output, Urine 1100 2300 900 400 Patient 260 lb Weight Physical Exam: General: Well-developed, obese white female in NAD Skin: No rash or jaundice; see extremities below HEENT: Conjunctivae pink, sclerae anicteric, mucous membranes moist Neck: Without masses or thyromegaly, no supraclavicular or cervical adenopathy Chest: Scattered wheezes bilaterally Heart: Regular rate and rhythm without S3 or rub Abdomen: Obese, soft and nontender without palpable masses or organomegaly Extremities: Without edema on right, left lower leg is edematous and erythematous to upper thigh; dressing intact Neuro: No focal findings, no asterixis or myoclonus Results Pertinent Lab Results: Laboratory Tests 02/04 02/03 0628 1510 Chemistry Sodium (137 - 145 mmol/L) 140 Potassium (3.5 - 5.1 mmol/L) 4.4 Chloride (98 - 107 mmol/L) 103 Carbon Dioxide (22 - 30 mmol/L) 25 Anion Gap (5 - 16) 12 BUN (7 - 17 mg/dL) 25 H Creatinine (0.5 - 1.0 mg/dL) 2.2 H Estimated GFR (>60 ml/min) 22 L BUN/Creatinine Ratio (7 - 25 %) 11.4 Hematology CBC w Diff NO MAN DIFF REQ WBC (4.8 - 10.8 /CUMM) 8.9 RBC (4.20 - 5.40 /CUMM) 3.64 L Hgb (12.0 - 16.0 G/DL) 11.2 L Hct (37 - 47 %) 33.8 L MCV (81.0 - 99.0 FL) 93.0 MCH (27.0 - 31.0 PG) 30.8 RDW (11.5 - 14.5 %) 15.7 H Plt Count (130 - 400 /CUMM) 145 MPV (7.4 - 10.4 FL) 10.2 Gran % (42.2 - 75.2 %) 74.2 Lymphocytes % (20.5 - 51.1 %) 12.6 L Monocytes % (1.7 - 9.3 %) 10.4 H Eosinophils % (0 - 5 %) 2.6 Basophils % (0.0 - 2.0 %) 0.2 Absolute Granulocytes (1.4 - 6.5 /CUMM) 6.6 H Absolute Lymphocytes (1.2 - 3.4 /CUMM) 1.1 L Absolute Monocytes (0.10 - 0.60 /CUMM) 0.9 H Absolute Eosinophils (0.0 - 0.7 /CUMM) 0.2 Absolute Basophils (0.0 - 0.2 /CUMM) 0 PUBS MCHC (33.0 - 37.0 G/DL) 33.2 Urines Ur Random Creatinine (mg/dL) 88.9 Ur Random Sodium (30 - 90 mmol/L) 9 L Ur Random Potassium (mmol/L) 17.7 Fraction Sodium Excret (<1% %) 0.1 02/03 02/02 1407 1244 Chemistry Sodium (137 - 145 mmol/L) 138 137 Potassium (3.5 - 5.1 mmol/L) 3.9 3.9 Chloride (98 - 107 mmol/L) 100 101 Carbon Dioxide (22 - 30 mmol/L) 28 27 Anion Gap (5 - 16) 11 9 BUN (7 - 17 mg/dL) 26 H 18 H Creatinine (0.5 - 1.0 mg/dL) 2.0 H 1.2 H Estimated GFR (>60 ml/min) 25 L 45 L BUN/Creatinine Ratio (7 - 25 %) 13.0 Glucose (65 - 99 mg/dL) 106 H Calcium (8.4 - 10.2 mg/dL) 7.9 L Phosphorus (2.5 - 4.5 mg/dL) 4.1 Magnesium (1.6 - 2.3 mg/dL) 2.1 Total Bilirubin (0.2 - 1.3 mg/dL) 0.6 AST (14 - 36 U/L) 27 ALT (9 - 52 U/L) 24 C-Reactive Prot, Quant (<1.0 mg/dL) > 9 H C-React Prot High Sens (1.0 - 3.0 mg/L) > 15.0 H Albumin (3.5 - 5.0 g/dL) 2.8 L Hematology CBC w Diff NO MAN DIFF REQ MAN DIFF ORDERED WBC (4.8 - 10.8 /CUMM) 11.8 H 16.0 H RBC (4.20 - 5.40 /CUMM) 3.87 L 4.10 L Hgb (12.0 - 16.0 G/DL) 12.1 12.8 Hct (37 - 47 %) 36.1 L 38.3 MCV (81.0 - 99.0 FL) 93.1 93.3 MCH (27.0 - 31.0 PG) 31.3 H 31.1 H RDW (11.5 - 14.5 %) 15.2 H 15.4 H Plt Count (130 - 400 /CUMM) 136 134 MPV (7.4 - 10.4 FL) 10.4 10.5 H Gran % (42.2 - 75.2 %) 81.8 H 87.7 H Lymphocytes % (20.5 - 51.1 %) 9.7 L 7.8 L Monocytes % (1.7 - 9.3 %) 6.9 4.0 Eosinophils % (0 - 5 %) 1.3 0.2 Basophils % (0.0 - 2.0 %) 0.3 0.3 Absolute Granulocytes (1.4 - 6.5 /CUMM) 9.6 H 14.0 H Segmented Neutrophils (42.2 - 75.2 %) 81 H Band Neutrophils (0.0 - 5.0 %) 11 H Absolute Lymphocytes (1.2 - 3.4 /CUMM) 1.1 L 1.2 Lymphocytes (20.5 - 51.1 %) 4 L Monocytes (1.7 - 9.3 %) 4 Absolute Monocytes (0.10 - 0.60 /CUMM) 0.8 H 0.6 Absolute Eosinophils (0.0 - 0.7 /CUMM) 0.2 0 Absolute Basophils (0.0 - 0.2 /CUMM) 0 0 Platelet Estimate (ADEQUATE) VERIFIED BY SMEAR Anisocytosis 1+ PUBS MCHC (33.0 - 37.0 G/DL) 33.5 33.4 ESR Westergren (0 - 20 MM) 85 H Toxicology Vancomycin Trough (10.0 - 20.0 ug/mL) 18.9 Random Vancomycin (ug/ml) 17.0
--- NOTE | 2017-02-04 16:14 | NUR ---
NURSING NOTE: PT ABX CHANGED TO AMPICILLIN PER . DR. RAYO AND ROWDY CASTRO AWARE OF PT PCN ALLERGY. PER PT SHE HAS ONLY HAD GI UPSET WITH PCN IN THE PAST. PER ROWDY CASTRO WE WILL GIVE THE AMPICILLIN AND MONITOR FOR REACTION.
[2017-02-04 22:17] VITALS: BP 128/70
[2017-02-05 06:46] VITALS: BP 140/80
--- NOTE | 2017-02-05 07:31 | PN- Housestaff ---
TARAN RODRIGUES,[facility] 02/05/17 0731: Subjective Follow-up For: CELLULITIS ARF Subjective: Sat pt at bedside this AM. She state that she was feeling well. She de-satted this AM when walking to bedside commode. She was on 2L went into low 80s while moving and when she returned she to bedside the problem did not immediately correct. She was put on 4l O2 with normalization of sats. Otherwise afebrile overnight. Review of Systems Constitutional: Denies: chills, malaise, weakness. EENTM: Reports: no symptoms. Cardiovascular: Reports: no symptoms. Respiratory: Denies: cough, short of breath. Gastrointestinal: Denies: abdominal pain, diarrhea. Genitourinary: Reports: no symptoms. Musculoskeletal: Reports: joint pain, muscle pain, muscle stiffness. Skin: Reports: erythema, rash. Objective Last 24 Hrs of Vital Signs/I&O Vital Signs Date Time Temp Pulse Resp B/P B/P Pulse O2 O2 Flow FiO2 Mean Ox Delivery Rate 02/05 0646 98.3 79 22 140/80 91 Nasal 2.0L Cannula 02/05 0000 Nasal 2.0L Cannula 02/05 0000 Nasal 2.0L Cannula 02/04 2217 99.2 84 20 128/70 93 Nasal 2.0L Cannula 02/04 1854 88 Room Air 02/04 1600 93 Nasal 3.0L Cannula 02/04 1600 94 Nasal 3.0L Cannula 02/04 1509 98.9 81 20 132/66 94 Nasal 3.0L Cannula 02/04 0815 91 Nasal 3.0L Cannula 02/04 0800 93 Nasal 3.0L Cannula 02/04 0800 93 Nasal 3.0L Cannula Intake & Output 02/05 0800 02/05 0000 02/04 1600 Intake Total 1450 1250 1600 Output Total 800 750 Balance 1450 450 850 Intake, IV 800 200 800 Intake, Oral 650 1050 800 Number 0 2 Bowel Movements Output, Urine 800 750 Physical Exam General Appearance: Alert, Oriented X3, Cooperative, No Acute Distress Skin: Has swelling and erythematous rash on LLE. HEENT: Atraumatic, PERRLA, EOMI Neck: Supple Cardiovascular: Regular Rate, Normal S1, Normal S2 Lungs: Normal Air Movement Abdomen: Soft, No Tenderness Extremities: LLE. Erythematous and wrapped in bandage. The toe and part of foot that can be visualizded is erytehmatous. The bandage shows no evidence of blood or drainage. Current Medications: Current Medications Sig/Pop Start time Last Medication Dose Route Stop Time Status Admin Acetaminophen 650 MG Q4P PRN 02/03 1130 AC PO Acetaminophen 650 MG Q6P PRN 01/31 2345 DC 02/02 PO 1843 Albuterol Sulfate 3 ML TID 02/01 1046 AC 02/05 INH 0757 Albuterol Sulfate 2 PUF Q4 HRS NEEDED PRN 01/31 2345 AC INH Ampicillin 2,000 MG Q12 02/04 2200 AC 02/04 Sodium Chloride 100 ML IV 2137 Ampicillin 2,000 MG Q8H 02/04 1600 DC 02/04 Sodium Chloride 100 ML IV 1618 Ampicillin 1,000 MG Q6 02/04 1413 DC Sodium Chloride 100 ML IV Atorvastatin Calcium 10 MG DAILY 02/01 1000 AC 02/04 PO 0851 Budesonide/ 2 PUF BID 02/01 1000 AC 02/04 Formoterol Fumarate INH 2138 Clindamycin 600 MG IQ8 02/01 0000 DC 02/04 Dextrose/Water 50 ML IV 0742 Heparin Sodium 5,000 UNIT Q8 02/03 1400 AC 02/05 (Porcine) SC 0607 Ipratropium [place] 2.5 ML TID 02/01 1047 AC 02/05 INH 0757 Methyl Salicylate 1 EYAD Q6-PRN PRN 02/02 1200 AC 02/02 TOP 1253 Nystatin 1 EYAD TID PRN 02/01 1415 AC TOP Omeprazole 40 MG DAILY AC 02/01 0700 AC 02/05 PO 0607 Oxycodone/ 2 TAB Q6P PRN 01/31 2345 AC 02/02 Acetaminophen PO 2318 Sodium Chloride 1,000 ML Q10H 02/04 1245 AC 02/05 IV 02/05 0844 0120 Sodium Chloride 1,000 ML Q10H 02/03 1630 DC 02/04 IV 02/04 1229 0311 Zolpidem Tartrate 5 MG AT BEDTIME 02/03 2200 AC 02/04 PO 2138 Last 24 Hrs of Lab/Fernando Results Last 24 Hrs of Labs/Mics: Laboratory Tests 02/05/17 0626: Sodium Pending, Potassium Pending, Chloride Pending, Carbon Dioxide Pending, Anion Gap Pending, BUN Pending, Creatinine Pending, BUN/Creatinine Ratio Pending , CBC w Diff Pending, WBC Pending, RBC Pending, Hgb Pending, Hct Pending, MCV Pending, MCH Pending, RDW Pending, Plt Count Pending, MPV Pending, PUBS MCHC Pending Assessment/Plan Assessment: Ms. Platt is a 66 year old female with PMH GERD, asthma, morbid obesity, previous strep A and staph aureus cellulitis and non-healing left leg ulcer who presents with a one day history of left lower extremity erythema, swelling and non-healing ulcer. She also noted decreased appetite, subjective fever, chills and shortness of breath with cough. Patient was initially admitted to the ICU and on 02/01 was transferred to once Nec fasc was ruled out. PLAN 1. Sepsis secondary to left lower extremity cellulitis: Initial Lower Extremity CT: Subcutaneous edema. No focal fluid collection or abscess. Culture showing moderate growth of B-group Strep A. Pt has hx of strep and staph cellulitis. Pt initially started on vancomycin and Clindamycin on 01/31. Vancomycin Trough : 18.9 and pt's Cr went from 1.2-->2.0-->2.2 likely 2/2 contrast induced nephropathy. Given ARF on 02/03 Vanco d/c. Pt initially reported allergy to Penicillin; not true allergy. Note increase in WBC to 11.4 after switch of antibiotics. However, afebrile and under 24 hrs s/p switch of abx. Will con't monitor. If pt wbc increases further will consider switching back to Clindamycin... * Switch to Ampicillin on 02/04/2017. * Previously she got 5 days of IV clindamycin (Started on 01/31/2017). Vanco given for 3 days; (01/31/2017--> 02/02/2017) (Total: Day 6 of antibiotics) * Lower extremity doppler is negative for clot * Consult w/ Dr. Hernandez as he sees patient outpatient for non-healing ulcers * Elevate legs * Jaeger culture, monitor for fevers. * Plastics following. Thank you for recs. Pt will follow up on out pt basis. Possible consideration of skin graft. 2. ARF: On 02/03 pt's Cr noted to go from 1.2-->2-->2.2-->2.1 today. She recieved contrast for imaging; in addition to Vancomycin administration. DDX: Contrast induced nephropathy vs AIN vs. ATN. Renal US negative for obstruction. Her BUN/Cr < 20, but her Urine lytes show Na 9 and FENa .1. Sepsis vs. LE vs. ATN? * Thank you nephrology consult * Hydration with 100cc/hr * D/C vanco * Monitor BEP and Cr closely * Switch Lovenox to SQ Heparin 3. Acute hypoxic respiratory failure in the setting of asthma/COPD: Patient noted to drop her oxygen saturations to 85% on room air, placed on 3 L NC. CXR x 2 shows no signs of fluid overload, no pathology noted. Due to worsening renal function no CTA. Wells Score < 2 suggesting low probability. Per pulmonary concern for COPD/TAYLOR/Tracheomalacia * CXR today. If normal will get V/Q or CT non-contrast * Provide supplemental O2 to maintain O2 sats >92% * [place] evaluation * No systemic steroids for now * Started symbicort 02/02/2017 * She will require outpatinent sleep study and likely CPAP 4. GERD * Continue omeprazole daily 5. HLD * Continue statin DNR/DNI (will accept a central line) Heart Healthy Diet DVTP: SC lovenox Problem List: 1. Left leg cellulitis 2. 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 Platt is tolerating the change of antibiotics to ampicillin well. Her WBC did slightly increase today but she remains afebrile and blood cultures remain negative. Her leg is showing decreased erythema. Renal function is slightly improved today and Mrs. Platt has no complaints. Pulmonary status remains problematic. He is now requiring 4 L. Nasal cannula to maintain O2 saturations in the low to mid 90s. She continues to wheeze. I agree with Dr. Anaya's suggestion to rule out PTE and also for additional imaging. We are continuing her maintenance medications for her reflux disease and her dyslipidemia.
[2017-02-05 07:39] LABS: ABSOLUTE BASOPHIL COUNT 0 /CUMM (0.0-0.2); ABSOLUTE EOSINOPHIL COUNT 0.3 /CUMM (0.0-0.7); ABSOLUTE GRANULOCYTE CT 8.5 /CUMM (1.4-6.5); ABSOLUTE LYMPH COUNT 1.4 /CUMM (1.2-3.4); BASOPHIL % 0.2 % (0.0-2.0); EOSINOPHIL % 2.3 % (0-5); GRANULOCYTE % 75.8 % (42.2-75.2); HEMATOCRIT 34.6 % (37-47); MEAN CORPUSCULAR HGB 30.7 PG (27.0-31.0); MEAN CORPUSCULAR HGB CONC 33.1 G/DL (33.0-37.0); MEAN CORPUSCULAR VOLUME 92.9 FL (81.0-99.0); MEAN PLATELET VOLUME 9.9 FL (7.4-10.4); PLATELET COUNT 171 /CUMM (130-400); RBC DISTRIBUTION WIDTH 16.2 % (11.5-14.5); RED BLOOD CELL CT 3.73 /CUMM (4.20-5.40); WHITE BLOOD CELL COUNT 11.3 /CUMM (4.8-10.8)
--- NOTE | 2017-02-05 08:04 | PN- Wound Care ---
Subjective Subjective: Left leg discomfort is improved erythema is receding. Objective Vital Signs and I&Os Vital Signs Result Date Time Pulse Ox 92 02/06 800 O2 Delivery Nasal Cannula 02/06 800 O2 Flow Rate 4.0L 02/06 800 B/P 140/80 02/05 0646 Temp 98.3 02/05 0646 Pulse 79 02/05 0646 Resp 22 02/05 0646 Intake & Output 02/05 0000 02/04 1600 02/04 0800 Intake Total 1250 1600 1040 Output Total 800 750 300 Balance 450 850 740 Intake, IV 200 800 800 Intake, Oral 1050 800 240 Number 2 0 Bowel Movements Output, Urine 800 750 300 Left leg blister is for the most part decompressed left anterior wound appears clean her there persistent drainage left ankle ulcer appears to be healing with elevation Impression/Plan Impression/Plan Impression/Plan: 66-year-old woman with chronic venous stasis ulcers status post vein closure who is had persistent ulceration despite compression therapy antibiotics and elevation in conjunction with vein closure. Following debridement she's developed an acute soft tissue infection with persistent concern over possible osteomyelitis though recent imaging has been negative. Dr. Suarez at the time of his debridement did not feel osteomyelitis was present. Recommend aggressive leg elevation wound care with nonadherent dressing daily cleansing. Continue leg elevation aggressive wound cleansing and Aquacel Ag or Xeroform. We'll discuss need for further imaging with infectious disease
--- NOTE | 2017-02-05 13:32 | Cons- Plastic Surgery ---
General Information and HPI Consulting Request Date of Consult: 02/04/17 Requested By: MAHSA RODRIGUES,MYRON Mckenzie Reason for Consult: Open wound left leg with cellulitis Source of Information: patient Exam Limitations: no limitations History of Present Illness: Patient is being treated by Dr. Hernandez as an outpatient for chronic wound of the left anterior leg. She had a skin graft approximately 1 month or so ago that failed. Dr. Marcelo now reports cellulitis recurring after stopping oral antibiotics. There is a questionable space medial to the left anterior leg wound that is prompting a need for evaluation. In the office a small amount of ischemic skin was debrided away allowing probing of the depth of the wound which showed no probing to cortical bone. The periosteum appeared intact although it was not pink. The specimen was sent for pathologic analysis to rule out malignancy and was negative. The following day the patient had her signs and symptoms return of cellulitis of the left leg was brought to the emergency room for evaluation. Allergies/Medications Allergies: Coded Allergies: cephalexin (Intermediate, LINE UP ARM; PER PT IS TAKING MED ORALLY CURRENTLY ) Iodine and Iodide Containing Produc (Mild, UMANZOR/ULCERS 02/05/17) Penicillins (GI UPSET, DOESNT AGREE 11/26/16) ciprofloxacin (UNKNOWN PER PT 11/26/16) doxycycline (UNKNOWN PER PT 11/26/16) gentian malika (From HYDROFERA BLUE READY) (UNKNOWN PER PT 11/26/16) ibuprofen (From MOTRIN) (STATES "I CANT TAKE MOTRIN" 01/31/17) levofloxacin (From LEVAQUIN) (UNKNOWN PER PT 11/26/16) methylene blue (From HYDROFERA BLUE READY) (UNKNOWN PER PT 11/26/16) promethazine (UNKNOWN PER PT 11/26/16) venom-honey bee (LOCALIZED SWELLING PER PT 11/26/16) Home Med List: Acetaminophen With Codeine (Acetaminophen-Cod #3 Tablet) 300 MG-30 MG TABLET 1 TAB PO PRN PAIN (Reported) Albuterol Sulfate (Proair Hfa) 90 MCG HFA.AER.AD 2 PUF INH PRN ASTHMA ( Reported) Ascorbic Acid (Vitamin C) (Unknown Strength) TABLET (Unknown Dose) PO DAILY SUPPLEMENT (Reported) Atorvastatin Calcium 10 MG TABLET 1 TAB PO DAILY CHOLESTEROL (Reported) Calcium Carbonate/Vitamin D3 (Calcium 500 + D Tablet) (Unknown Strength) TABLET (Unknown Dose) PO DAILY SUPPLEMENT (Reported) Epinephrine (Epipen) 0.3 MG/0.3 ML AUTO.INJCT 0.3 MG IM AD PRN ALLERGIC REACTION (Reported) Meloxicam 7.5 MG TABLET 1 TAB PO DAILY PAIN/INFLAMMATION (Reported) Omeprazole 40 MG CAPSULE. 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 Home Who Do You Live With? self Services at Home: None Primary Language: Bengali Smoking Status: Current Everyday Smoker ETOH Use: denies use Illicit Drug Use: denies illicit drug use Living Will? yes Other Social History: Social history is significant for greater than 40 year History of tobacco abuse, currently using electronic cigarettes. She denies alcohol or illicit drug use. Family history is significant for a father who passed from cancer and a mother with scleroderma; Rosa's sister recently passed due to ETOH abuse. Rosa lives at home with her cat and ambulates with a cane. Functional Ability ADLs Independent: dressing, eating, toileting, bathing. Ambulation: cane IADLs Independent: shopping, housework, finances, food prep, telephone, transportation , medication admin. Review of Systems Review of Systems: All other systems negative Exam & Diagnostic Data Vital Signs and I&O Vital Signs Date Time Temp Pulse Resp B/P B/P Pulse O2 O2 Flow FiO2 Mean Ox Delivery Rate 02/05 08 94 Nasal 4.0L Cannula 02/05 0800 94 Nasal 4.0L Cannula 02/05 0800 92 Nasal 4.0L Cannula 02/05 0646 98.3 79 22 140/80 91 Nasal 2.0L Cannula 02/05 0000 Nasal 2.0L Cannula 02/05 0000 Nasal 2.0L Cannula 02/04 2217 99.2 84 20 128/70 93 Nasal 2.0L Cannula 02/04 1854 88 Room Air 02/04 1600 93 Nasal 3.0L Cannula 02/04 1600 94 Nasal 3.0L Cannula 02/04 1509 98.9 81 20 132/66 94 Nasal 3.0L Cannula Intake & Output 02/05 1600 02/05 0800 02/05 0000 02/04 1600 02/04 0800 02/04 0000 Intake Total 1450 1250 1600 1040 1000 Output Total 800 750 300 800 Balance 1450 450 850 740 200 Intake, IV 800 200 800 800 400 Intake, Oral 650 1050 800 240 600 Number 0 2 0 0 Bowel Movements Output, Urine 800 750 300 800 Physical Exam: Physical exam shows the left leg to have edema from toes to knee with cellulitis with open wounds anterior left leg and medial malleolus. Attempts. Assessment/Plan Assessment/Plan Recurrent cellulitis left leg. Antibiotics per infectious disease. Follow-Up As an Outpatient for Consideration of Skin Grafting. Wound Care per Dr. Hernandez , [facility]. Consult Acknowledgment - Thank you for your consult request.
--- NOTE | 2017-02-05 13:42 | PN- Pulmonary ---
Subjective HPI/Critical Care Issues: Little better Ambulating with pt ON 4 litres wheezing appears much less today Objective Current Medications: Current Medications Sig/Pop Start time Last Medication Dose Route Stop Time Status Admin Acetaminophen 650 MG Q4P PRN 02/03 1130 AC PO Acetaminophen 650 MG Q6P PRN 01/31 2345 DC 02/02 PO 1843 Albuterol Sulfate 3 ML TID 02/01 1046 AC 02/05 INH 1325 Albuterol Sulfate 2 PUF Q4 HRS NEEDED PRN 01/31 2345 AC INH Ampicillin 2,000 MG Q12 02/04 2200 AC 02/05 Sodium Chloride 100 ML IV 0901 Ampicillin 2,000 MG Q8H 02/04 1600 DC 02/04 Sodium Chloride 100 ML IV 1618 Ampicillin 1,000 MG Q6 02/04 1413 DC Sodium Chloride 100 ML IV Atorvastatin Calcium 10 MG DAILY 02/01 1000 AC 02/05 PO 0857 Budesonide/ 2 PUF BID 02/01 1000 AC 02/05 Formoterol Fumarate INH 0858 Clindamycin 600 MG IQ8 02/01 0000 DC 02/04 Dextrose/Water 50 ML IV 0742 Heparin Sodium 5,000 UNIT Q8 02/03 1400 AC 02/05 (Porcine) SC 0607 Ipratropium [place] 2.5 ML TID 02/01 1047 AC 02/05 INH 1325 Lactobacillus 1 CAP DAILY 02/05 1000 AC 02/05 Acidophilus PO 0926 Methyl Salicylate 1 EYAD Q6-PRN PRN 02/02 1200 AC 02/05 TOP 0900 Nystatin 1 EYAD TID PRN 02/01 1415 AC TOP Omeprazole 40 MG DAILY AC 02/01 0700 AC 02/05 PO 0607 Oxycodone/ 2 TAB Q6P PRN 01/31 2345 AC 02/02 Acetaminophen PO 2318 Sodium Chloride 1,000 ML Q10H 02/05 0915 AC 02/05 IV 02/06 0514 0927 Sodium Chloride 1,000 ML Q10H 02/04 1245 DC 02/05 IV 02/05 0844 0120 Zolpidem Tartrate 5 MG AT BEDTIME 02/03 2200 AC 02/04 PO 2138 Vital Signs & I&O Last 24 Hrs of Vitals and I&O: Vital Signs Date Time Temp Pulse Resp B/P B/P Pulse O2 O2 Flow FiO2 Mean Ox Delivery Rate 02/05 0800 94 Nasal 4.0L Cannula 02/05 0800 94 Nasal 4.0L Cannula 02/05 0800 92 Nasal 4.0L Cannula 02/05 0646 98.3 79 22 140/80 91 Nasal 2.0L Cannula 02/05 0000 Nasal 2.0L Cannula 02/05 0000 Nasal 2.0L Cannula 02/04 2217 99.2 84 20 128/70 93 Nasal 2.0L Cannula 02/04 1854 88 Room Air 02/04 1600 93 Nasal 3.0L Cannula 02/04 1600 94 Nasal 3.0L Cannula 02/04 1509 98.9 81 20 132/66 94 Nasal 3.0L Cannula Intake & Output 02/05 1600 02/05 0800 02/05 0000 Intake Total 1450 2850 Output Total 1550 Balance 1450 1300 Intake, IV 800 1000 Intake, Oral 650 1850 Number 0 2 Bowel Movements Output, Urine 1550 Laboratory Tests 02/05 02/04 0626 0628 Chemistry Sodium (137 - 145 mmol/L) 145 140 Potassium (3.5 - 5.1 mmol/L) 4.5 4.4 Chloride (98 - 107 mmol/L) 109 H 103 Carbon Dioxide (22 - 30 mmol/L) 26 25 Anion Gap (5 - 16) 9 12 BUN (7 - 17 mg/dL) 20 H 25 H Creatinine (0.5 - 1.0 mg/dL) 2.1 H 2.2 H Estimated GFR (>60 ml/min) 24 L 22 L BUN/Creatinine Ratio (7 - 25 %) 9.5 11.4 Hematology CBC w Diff NO MAN DIFF REQ NO MAN DIFF REQ WBC (4.8 - 10.8 /CUMM) 11.3 H 8.9 RBC (4.20 - 5.40 /CUMM) 3.73 L 3.64 L Hgb (12.0 - 16.0 G/DL) 11.4 L 11.2 L Hct (37 - 47 %) 34.6 L 33.8 L MCV (81.0 - 99.0 FL) 92.9 93.0 MCH (27.0 - 31.0 PG) 30.7 30.8 RDW (11.5 - 14.5 %) 16.2 H 15.7 H Plt Count (130 - 400 /CUMM) 171 145 MPV (7.4 - 10.4 FL) 9.9 10.2 Gran % (42.2 - 75.2 %) 75.8 H 74.2 Lymphocytes % (20.5 - 51.1 %) 12.5 L 12.6 L Monocytes % (1.7 - 9.3 %) 9.2 10.4 H Eosinophils % (0 - 5 %) 2.3 2.6 Basophils % (0.0 - 2.0 %) 0.2 0.2 Absolute Granulocytes (1.4 - 6.5 /CUMM) 8.5 H 6.6 H Absolute Lymphocytes (1.2 - 3.4 /CUMM) 1.4 1.1 L Absolute Monocytes (0.10 - 0.60 /CUMM) 1.0 H 0.9 H Absolute Eosinophils (0.0 - 0.7 /CUMM) 0.3 0.2 Absolute Basophils (0.0 - 0.2 /CUMM) 0 0 PUBS MCHC (33.0 - 37.0 G/DL) 33.1 33.2 02/03 1510 Urines Ur Random Creatinine (mg/dL) 88.9 Ur Random Sodium (30 - 90 mmol/L) 9 L Ur Random Potassium (mmol/L) 17.7 Fraction Sodium Excret (<1% %) 0.1 Impression/Plan Impression/Plan Impression/Plan: Well-developed well-nourished obese female, looks stated age, no apparent distress. HEENT: Atraumatic, extraocular motion intact Neck: Supple, no lymphadenopathy Respiratory: Mild increased respiratory rate and effort Heart: Tachycardic Abdomen: Obese Extremities: Right lower extremity benign Left lower extremity with severe erythema circumferentially to the lower leg sparing the foot. The erythema warmth swelling and tenderness extends from the tibial tubercle region down to the ankle joint and circumferentially encompassing the lower leg. Erythema is most concentrated around the central midportion of the anterior tibia with there is an approximate 4 x 3.5 cm open wound with small amount of mucopurulent and granulation tissue present in the wound, this is where the biopsy was taken from according to the patient. Exposed fascia is noted, no exposed bone. There is significant warmth erythema swelling and induration around the ulceration. There is a smaller 1 cm chronic nonhealing wound at the medial ankle region. Dorsal pedal pulses are intact 2+ There is faint lymphangitic streaking noted to the medial thigh and into the groin with mild tenderness in this area. The significant erythema of the lower leg has been outlined in ink by the emergency room staff No significant calf tenderness and a negative Homans sign Neuro: Alert and oriented x3 Psych: Mood affect normal, normal memory normal judgment. Lower extremity Doppler negative for DVT IMPRESSION This is a lady with chronic lower extremity venous ulcer, chronic edema of the leg, morbid obesity, recent surgery to the lower extremity with wound VAC placement and graft done by Dr. Stone Stiles now comes in with * Significant lower extremity left-sided cellulitis in a lady with chronic left sided venous insufficiency and peripheral vascular disease (high white count, normal gap and lactic acid, with sig fever)- pt growing strep A from the OR cultures\ * Acute renal failure due to Prob contrast induce nephropathy needs follow up * Multiple antibiotic allergies including penicillin * Significant leukocytosis and fever improving * History of asthma with prob sig copd with more than 40 pack yr smoker with mild bronchospasm, now with hypoxemia probably related to VQ mismatch. Unlikely that she has any other pulmonary pathology including pulmonary embolism. However prob has sig copd * Prob tracheomalacia * Morbid obesity, with noted apneas with sig vaishali clinically RECOMMENDATION ATC nebs sputum culture if she has any Nebs duoneb and No steroids systemically Infectious disease to follow Symbicort 160 2 puff bid Heparin sub cut cxr again today and if clear will do a vq scan and a non contrast chest ct soon Wean oxygen as natalio
[2017-02-05 14:14] VITALS: BP 138/60
--- NOTE | 2017-02-05 16:41 | PN- Infect Dx ---
Subjective Subjective: Afebrile. She notes decreased pain in the left leg. She notes a chronic cough with no shortness of breath or chest pain. Objective Last 24 Hrs of Vital Signs/I&O Vital Signs Date Time Temp Pulse Resp B/P B/P Pulse O2 O2 Flow FiO2 Mean Ox Delivery Rate 02/05 1414 99.1 83 22 138/60 94 Nasal 4.0L Cannula 02/05 0800 94 Nasal 4.0L Cannula 02/05 0800 94 Nasal 4.0L Cannula 02/05 0800 92 Nasal 4.0L Cannula 02/05 0646 98.3 79 22 140/80 91 Nasal 2.0L Cannula 02/05 0000 Nasal 2.0L Cannula 02/05 0000 Nasal 2.0L Cannula 02/04 2217 99.2 84 20 128/70 93 Nasal 2.0L Cannula 02/04 1854 88 Room Air Intake & Output 02/05 1600 02/05 0800 02/05 0000 Intake Total 1800 1450 2850 Output Total 600 1550 Balance 1200 1450 1300 Intake, IV 524 172 1657 Intake, Oral 9808 930 4125 Number 1 0 2 Bowel Movements Output, Urine 600 1550 Physical Exam Other Physical Findings: She appears comfortable in no acute distress Lungs bilateral wheezes Heart regular rhythm with no murmur Extremities decreased erythema and and tenderness left leg Results Last 24 Hours of Lab Results: Laboratory Tests 02/05 06 Chemistry Sodium (137 - 145 mmol/L) 145 Potassium (3.5 - 5.1 mmol/L) 4.5 Chloride (98 - 107 mmol/L) 109 H Carbon Dioxide (22 - 30 mmol/L) 26 Anion Gap (5 - 16) 9 BUN (7 - 17 mg/dL) 20 H Creatinine (0.5 - 1.0 mg/dL) 2.1 H Estimated GFR (>60 ml/min) 24 L BUN/Creatinine Ratio (7 - 25 %) 9.5 Hematology CBC w Diff NO MAN DIFF REQ WBC (4.8 - 10.8 /CUMM) 11.3 H RBC (4.20 - 5.40 /CUMM) 3.73 L Hgb (12.0 - 16.0 G/DL) 11.4 L Hct (37 - 47 %) 34.6 L MCV (81.0 - 99.0 FL) 92.9 MCH (27.0 - 31.0 PG) 30.7 RDW (11.5 - 14.5 %) 16.2 H Plt Count (130 - 400 /CUMM) 171 MPV (7.4 - 10.4 FL) 9.9 Gran % (42.2 - 75.2 %) 75.8 H Lymphocytes % (20.5 - 51.1 %) 12.5 L Monocytes % (1.7 - 9.3 %) 9.2 Eosinophils % (0 - 5 %) 2.3 Basophils % (0.0 - 2.0 %) 0.2 Absolute Granulocytes (1.4 - 6.5 /CUMM) 8.5 H Absolute Lymphocytes (1.2 - 3.4 /CUMM) 1.4 Absolute Monocytes (0.10 - 0.60 /CUMM) 1.0 H Absolute Eosinophils (0.0 - 0.7 /CUMM) 0.3 Absolute Basophils (0.0 - 0.2 /CUMM) 0 PUBS MCHC (33.0 - 37.0 G/DL) 33.1 Last 24 Hours of Fernando Results: No recent cultures Assessment/Plan Impression: 66 year old woman with GERD, morbid obesity, asthma, previous Group A strep and Staph aureus cellulitis admitted on 01/31/17 with sepsis felt to be secondary to a left leg cellulitis following a biopsy of a nonhealing left leg ulcer on the day prior to admission. Superficial cultures have grown Group A strep, which is the likely pathogen. She remains afebrile but white blood cell count is slightly increased now on Ampicillin alone, which she appears to have tolerated. Of note a recent bone scan was negative for osteomyelitis. Her acute renal failure is felt to be multifactorial, secondary to the IV contrast and sepsis. Suggestion: 1. Elevation of the left leg 2. Increase Ampicillin to 2 g IV every 8 hours
--- NOTE | 2017-02-05 21:35 | RADIOLOGY REPORT ---
EXAMINATION: XR CHEST CLINICAL INFORMATION: Worsening shortness of breath. Desaturation. Pneumonitis. COMPARISON: Chest x-ray 01/31/2017, 08/20/2016 TECHNIQUE: 2 views of the chest were obtained. FINDINGS: Heart size is enlarged. Calcifications of thoracic aorta. Mild increasing pulmonary vascularity with increasing lung markings compared to prior chest x-ray. No focal consolidation or pleural effusion. Multilevel degenerative spondylosis of dorsal spine. IMPRESSION: Mild increased pulmonary vascularity. Cardiomegaly. No focal consolidation.
[2017-02-05 22:31] VITALS: BP 154/74
[2017-02-06 06:15] VITALS: BP 140/86
[2017-02-06 08:22] LABS: ABSOLUTE BASOPHIL COUNT 0.1 /CUMM (0.0-0.2); ABSOLUTE EOSINOPHIL COUNT 0.3 /CUMM (0.0-0.7); ABSOLUTE GRANULOCYTE CT 9.6 /CUMM (1.4-6.5); ABSOLUTE LYMPH COUNT 1.9 /CUMM (1.2-3.4); ABSOLUTE MONOCYTE COUNT 1.1 /CUMM (0.10-0.60); BASOPHIL % 0.4 % (0.0-2.0); EOSINOPHIL % 2.1 % (0-5); GRANULOCYTE % 74.4 % (42.2-75.2); HEMATOCRIT 34.6 % (37-47); MEAN CORPUSCULAR HGB 31.1 PG (27.0-31.0); MEAN CORPUSCULAR HGB CONC 33.1 G/DL (33.0-37.0); MEAN CORPUSCULAR VOLUME 94.2 FL (81.0-99.0); MEAN PLATELET VOLUME 10.2 FL (7.4-10.4); PLATELET COUNT 196 /CUMM (130-400); RBC DISTRIBUTION WIDTH 15.9 % (11.5-14.5); RED BLOOD CELL CT 3.68 /CUMM (4.20-5.40); WHITE BLOOD CELL COUNT 12.9 /CUMM (4.8-10.8)
--- NOTE | 2017-02-06 08:23 | PN- Housestaff ---
TARAN RODRIGUES,KR[facility] HOSPITALJose Rafael 02/06/17 0814: Subjective Follow-up For: CELLULITIS Subjective: Saw pt at bedside. She was resting comfortably. She stated that her leg was feeling much better but that she cont' to be SOB. No acute overnight events. Afebrile. Review of Systems Constitutional: Denies: chills, fever, weakness. EENTM: Denies: blurred vision. Cardiovascular: Denies: chest pain, palpitations. Respiratory: Reports: short of breath, wheezing. Denies: cough, sputum production. Gastrointestinal: Reports: no symptoms. Genitourinary: Reports: no symptoms. Musculoskeletal: Reports: no symptoms. Skin: Reports: erythema, rash. Objective Last 24 Hrs of Vital Signs/I&O Vital Signs Date Time Temp Pulse Resp B/P B/P Pulse O2 O2 Flow FiO2 Mean Ox Delivery Rate 02/06 0900 93 Nasal 4.0L Cannula 02/06 0615 98.3 60 22 140/86 93 Nasal 4.0L Cannula 02/06 0000 Nasal 4.0L Cannula 02/06 0000 96 Nasal 4.0L Cannula 02/05 2231 97.8 87 22 154/74 93 Nasal 4.0L Cannula 02/05 1905 93 Nasal 4.0L Cannula 02/05 1600 94 Nasal 4.0L Cannula 02/05 1600 94 Nasal 4.0L Cannula 02/05 1414 99.1 83 22 138/60 94 Nasal 4.0L Cannula Intake & Output 02/06 1600 04 0800 05/04 0000 Intake Total 800 1180 Output Total 400 2400 Balance 400 -1220 Intake, IV 600 400 Intake, Oral 200 780 Output, Urine 400 2400 Patient 124.426 kg 123.916 kg Weight Physical Exam General Appearance: Alert, Oriented X3, Cooperative, No Acute Distress Skin: the rash in her LLE seems less erythematous above bandages. HEENT: Atraumatic, PERRLA, Mucous Membr. moist/pink Neck: Supple Cardiovascular: Regular Rate, Normal S1, Normal S2 Lungs: diffusely wheezy Abdomen: Soft, No Tenderness Neurological: Normal Speech Assessment/Plan Assessment: Ms. Platt is a 66 year old female with PMH GERD, asthma, morbid obesity, previous strep A and staph aureus cellulitis and non-healing left leg ulcer who presents with a one day history of left lower extremity erythema, swelling and non-healing ulcer. She also noted decreased appetite, subjective fever, chills and shortness of breath with cough. Patient was initially admitted to the ICU and on 02/01 was transferred to once Nec fasc was ruled out. PLAN 1. Sepsis secondary to left lower extremity cellulitis: White count increasing to 11.9 today despite of increase in Ampicillin. Pt remained afebrile. Will change ABX per ID! She states her LE does feel improved. Initial Lower Extremity CT: Subcutaneous edema. No focal fluid collection or abscess. Culture showing moderate growth of B-group Strep A. Pt has hx of strep and staph cellulitis. Bone scan not indicative of osteomyelitis. * Switch to Ampicillin on 02/04/2017. Dose frequency increased on 02/05/2017. * Previously she got 5 days of IV clindamycin (Started on 01/31/2017). Vanco given for 3 days; (01/31/2017--> 02/02/2017) (Total: Day 7 of antibiotics) * Lower extremity doppler is negative for clot * Consult w/ Dr. Hernandez as he sees patient outpatient for non-healing ulcers * Elevate legs * Jaeger culture, monitor for fevers. * Plastics following. Thank you for recs. Pt will follow up on out pt basis. Possible consideration of skin graft. 2. ARF: On 02/03 pt's Cr noted to go from 1.2-->2-->2.2-->2.1-->2.0. She recieved contrast for imaging; in addition to Vancomycin administration. DDX: Contrast induced nephropathy vs AIN vs. ATN. Renal US negative for obstruction. ARF likely combination of sepsis, LE etc. * Thank you nephrology consult * Will d/c hydration if CT indicative of fluid overload worsening hypoxia. Currently 75CC * Monitor BEP and Cr closely * Switched Lovenox to SQ Heparin 3. Acute hypoxic respiratory failure in the setting of asthma/COPD: Pt is having worsening hypoxic respiratory failure and increasing oxygen requirement. Her Xray shows increasing pulmonay vasculature. She has recieved aggressive fluids ( 100cc/hr for >48 hrs) 2/2 to ARF and LE. Possibility that hse is experiencing pulm. edema however cannot rule out PE. Pt has Wells score < 2. Initially could not obtain CT PE given worsening renal function. Will do V/Q scan today followied by non-con CT chest. Pulmonary concern for COPD/TAYLOR/Tracheomalacia. * V/Q today * CT non-contrast today * Decreased IVF 75cc and anticipating D/C IVF afte Cr. reviewed this AM. * Provide supplemental O2 to maintain O2 sats >92% * A[place] evaluation * No systemic steroids for now * Started symbicort 02/02/2017 * She will require outpatinent sleep study and likely CPAP 4. GERD * Continue omeprazole daily 5. HLD * Continue statin DNR/DNI (will accept a central line) Heart Healthy Diet DVTP: SC lovenox Problem List: 1. Sepsis 2. Cellulitis Pain Ratin Pain Location: none Pain Goal: Remain pain free Pain Plan: current reg Tomorrow's Labs & Rationales: cbc bep DVT/Prophylaxis: pharmacological RAMANDEEP RENEE MD 02/06/17 1433: Attending MD Review Statement Attending Statement Attending MD Statement: examined this patient, discuss w/resident/PA/AUDIT SPEC, agreed w/resident/PA/AUDIT SPEC, reviewed EMR data (avail), discussed with nursing, reviewed images, amended to note Attending Assessment/Plan: Concerning Ms. Platt left leg cellulitis and sepsis she continues to improve clinically however her white blood count continues to rise. An adjustment was made per infectious disease on her ampicillin dosing schedule as of yesterday. At this time I think it is reasonable to follow her white blood count and also her clinical status and continue her present dose of ampicillin. Her renal failure continues to improve slowly. Renal function and electrolytes should be followed carefully. She continues to wheeze. Findings from her CT scan done yesterday are consistent with pulmonary edema. We have discontinued her intravenous fluids and are continuing to follow. In addition there was noted to be findings consistent with a goiter. This will be evaluated by obtaining an ultrasound of her neck. She has been observed to have frequent apneic episodes while sleeping. A sleep study should also be obtained.
--- NOTE | 2017-02-06 08:24 | PN- Wound Care ---
Subjective Subjective: Left leg discomfort is improved. Erythema is receding. There is minimal drainage. Objective Vital Signs and I&Os Vital Signs Result Date Time Pulse Ox 93 02/06 615 B/P 140/86 02/06 615 O2 Delivery Nasal Cannula 02/06 615 O2 Flow Rate 4.0L 02/06 615 Temp 98.3 02/06 615 Pulse 60 02/06 0615 Resp 22 02/06 615 Intake & Output 02/06 0000 02/05 1600 02/05 0800 Intake Total 1180 1800 1450 Output Total 2400 600 Balance -1220 1200 1450 Intake, IV 400 800 800 Intake, Oral 780 1000 650 Number 1 0 Bowel Movements Output, Urine 2400 600 Patient 273 lb Weight Left medial ankle wound is epithelializing with wound care in bed rest. Left anterior wound still has areas of slough requires cleansing. There is minimal drainage from left posterior leg blisters which are healing. Impression/Plan Impression/Plan Impression/Plan: 66-year-old woman with chronic venous stasis ulcers has improving strep soft tissue infection. Wounds are improving with antibiotics and leg elevation.. Continue aggressive leg elevation daily wound cleansing and Xeroform dressings
--- NOTE | 2017-02-06 13:22 | CT SCAN REPORT ---
EXAMINATION: CT CHEST WITHOUT CONTRAST CLINICAL INFORMATION: Hypoxia and wheezing. Looking for pleural effusion. COMPARISON: Several prior chest x-rays, most recent of which is dated 02/05/2017. TECHNIQUE: Multidetector volumetric CT imaging of the chest was obtained noncontrast. Sagittal and coronal reformations were obtained. DLP: 847.69 mGy-cm. FINDINGS: LUNGS: No significant pleural effusion is seen. There is dependent atelectasis in both lower lobes. There is a bandlike area of volume loss in the right lower lobe with associated air bronchogram. Patchy areas of groundglass opacity are seen in both lower lobes, the inferior lingula and right middle lobe, most consistent with pulmonary edema is associated thickening of the interlobular septae is seen. In addition, some of these these groundglass opacities appear more focal and nodular, example in the inferior aspect of the right upper lobe (series 4, image 212), where a 1.0 x 0.6 cm ground glass opacity nodule is seen. LYMPHOVASCULAR STRUCTURES: Ascending aorta is borderline aneurysmal, measuring 3.9 cm in maximal AP diameter at the level of the pulmonary arterial bifurcation. The remainder of the thoracic aorta is normal in caliber. There is moderate atherosclerotic calcification of the aorta and great vessels. Pulmonary arteries are enlarged attention. Heart size normal. No pericardial effusion. There is a 3.0 x 1.8 cm soft tissue density mass in the left paratracheal region at the thoracic inlet (series 2, image 1), incompletely imaged and suspicious for an abnormal solid mass/lymph node. Borderline abnormal lymph nodes are seen in the anterosuperior mediastinum, measuring up to 1.0 cm and 1.4 cm the left thoracic inlet region (series 2, image 6 and 4. There is also a borderline abnormal left axillary lymph node (series 2, image 9), measuring 1.1 cm in short axis. Other subcentimeter sized mediastinal lymph nodes and bilateral axillary lymph nodes are noted. THYROID GLAND: The thyroid gland is not visualized on this exam. UPPER ABDOMEN: Small calcified gallstones are seen within the dependent portion of the gallbladder, near the gallbladder neck. Slight nodular hypertrophy of the left adrenal gland is seen without discrete mass. Visualized portions of the adrenal glands bilaterally otherwise unremarkable. Included portions of the solid organs in the upper abdomen unremarkable on noncontrast study. BONES: Mild degenerative changes are seen in the right glenohumeral joint and moderate vertebral spurring and partial anterior spinal fusion is seen throughout the thoracic spine, raising the suspicion of ankylosing spondylitis. IMPRESSION: 1. No evidence of pleural effusion. 2. Pulmonary findings are most consistent with pulmonary edema. Some of the groundglass opacity areas appear more focal and nodular, example in the inferior aspect of the right upper lobe. Consider follow-up evaluation post treatment to document resolution of findings. 3. Bibasilar volume loss and dependent atelectasis seen. Superimposed bandlike area of atelectatic change in the right lower lobe is also noted. 4. Abnormal adenopathy is seen in the anterior superior mediastinum and in the lower left neck, incompletely imaged. Less likely, the finding in the left lower leg may be related to a thyroid mass. Further assessment with thyroid ultrasound and soft tissue neck ultrasound is recommended. 5. Cholelithiasis.
[2017-02-06 13:31] VITALS: BP 138/78
--- NOTE | 2017-02-06 14:20 | PN- Pulmonary ---
Subjective HPI/Critical Care Issues: Saw pt at bedside. She was resting comfortably. She stated that her leg was feeling much better but that mild vaughan. No acute overnight events. Afebrile. Review of Systems Constitutional: Denies: chills, fever, weakness. EENTM: Denies: blurred vision. Cardiovascular: Denies: chest pain, palpitations. Respiratory: Reports: short of breath, wheezing. Denies: cough, sputum production. Gastrointestinal: Reports: no symptoms. Genitourinary: Reports: no symptoms. Musculoskeletal: Reports: no symptoms. Skin: Reports: erythema, rash. Objective Current Medications: Current Medications Sig/Pop Start time Last Medication Dose Route Stop Time Status Admin Acetaminophen 650 MG .STK-MED ONE 02/05 2214 DC PO 02/05 221 Acetaminophen 650 MG .STK-MED ONE 02/05 1739 DC PO 02/05 1740 Acetaminophen 650 MG Q4P PRN 02/03 1130 AC 02/06 PO 1301 Albuterol Sulfate 3 ML TID 02/01 1046 AC 02/06 INH 0852 Albuterol Sulfate 2 PUF Q4 HRS NEEDED PRN 01/31 2345 AC INH Ampicillin 2,000 MG Q8 02/05 2200 AC 02/06 Sodium Chloride 100 ML IV 1302 Ampicillin 2,000 MG Q12 02/04 2200 DC 02/05 Sodium Chloride 100 ML IV 0901 Atorvastatin Calcium 10 MG DAILY 02/01 1000 AC 02/06 PO 0920 Budesonide/ 2 PUF BID 02/01 1000 AC 02/06 Formoterol Fumarate INH 0920 Heparin Sodium 5,000 UNIT Q8 02/03 1400 AC 02/06 (Porcine) SC 1301 Ipratropium [place] 2.5 ML TID 02/01 1047 AC 02/06 INH 0852 Lactobacillus 1 CAP DAILY 02/05 1000 AC 02/06 Acidophilus PO 0920 Methyl Salicylate 1 EYAD Q6-PRN PRN 02/02 1200 AC 02/05 TOP 1740 Nystatin 1 EYAD TID PRN 02/01 1415 AC TOP Omeprazole 40 MG DAILY AC 02/01 0700 AC 02/06 PO 0545 Oxycodone/ 2 TAB Q6P PRN 01/31 2345 AC 02/02 Acetaminophen PO 2318 Patient Medication 1 ED ONE ONE 02/05 1415 DC Teaching ED 02/05 1416 Sodium Chloride 1,000 ML Q10H 05/04 0545 AC 02/06 IV 02/07 0144 0753 Sodium Chloride 1,000 ML Q10H 02/05 0915 DC / IV 02/06 0514 1741 Zolpidem Tartrate 5 MG AT BEDTIME 02/03 220 AC 02/04 PO 2138 Vital Signs & I&O Last 24 Hrs of Vitals and I&O: Vital Signs Date Time Temp Pulse Resp B/P B/P Pulse O2 O2 Flow FiO2 Mean Ox Delivery Rate 02/06 1331 98.6 77 20 138/78 96 Nasal 4.0L Cannula 02/06 0900 93 Nasal 4.0L Cannula 02/06 0615 98.3 60 22 140/86 93 Nasal 4.0L Cannula 02/06 0000 Nasal 4.0L Cannula 02/06 0000 96 Nasal 4.0L Cannula 02/05 2231 97.8 87 22 154/74 93 Nasal 4.0L Cannula 02/05 1905 93 Nasal 4.0L Cannula 02/05 1600 94 Nasal 4.0L Cannula 02/05 1600 94 Nasal 4.0L Cannula Intake & Output 02/06 1600 02/06 0800 02/06 0000 Intake Total 800 1180 Output Total 400 2400 Balance 400 -1220 Intake, IV 600 400 Intake, Oral 200 780 Output, Urine 400 2400 Patient 274 lb 273 lb Weight Impression/Plan Impression/Plan Impression/Plan: Well-developed well-nourished obese female, looks stated age, no apparent distress. HEENT: Atraumatic, extraocular motion intact Neck: Supple, no lymphadenopathy Respiratory: Mild increased respiratory rate and effort Heart: Tachycardic Abdomen: Obese Extremities: Right lower extremity benign Left lower extremity with severe erythema circumferentially to the lower leg sparing the foot. The erythema warmth swelling and tenderness extends from the tibial tubercle region down to the ankle joint and circumferentially encompassing the lower leg. Erythema is most concentrated around the central midportion of the anterior tibia with there is an approximate 4 x 3.5 cm open wound with small amount of mucopurulent and granulation tissue present in the wound, this is where the biopsy was taken from according to the patient. Exposed fascia is noted, no exposed bone. There is significant warmth erythema swelling and induration around the ulceration. There is a smaller 1 cm chronic nonhealing wound at the medial ankle region. Dorsal pedal pulses are intact 2+ There is faint lymphangitic streaking noted to the medial thigh and into the groin with mild tenderness in this area. The significant erythema of the lower leg has been outlined in ink by the emergency room staff No significant calf tenderness and a negative Homans sign Neuro: Alert and oriented x3 Psych: Mood affect normal, normal memory normal judgment. Lower extremity Doppler negative for DVT chest ct reviewed IMPRESSION: 1. No evidence of pleural effusion. 2. Pulmonary findings are most consistent with pulmonary edema. Some of the groundglass opacity areas appear more focal and nodular, example in the inferior aspect of the right upper lobe. Consider follow-up evaluation post treatment to document resolution of findings. 3. Bibasilar volume loss and dependent atelectasis seen. Superimposed bandlike area of atelectatic change in the right lower lobe is also noted. 4. Abnormal adenopathy is seen in the anterior superior mediastinum and in the lower left neck, incompletely imaged. Less likely, the finding in the left lower leg may be related to a thyroid mass. Further assessment with thyroid ultrasound and soft tissue neck ultrasound is recommended. 5. Cholelithiasis. IMPRESSION This is a lady with chronic lower extremity venous ulcer, chronic edema of the leg, morbid obesity, recent surgery to the lower extremity with wound VAC placement and graft done by Dr. Stone Stiles now comes in with * Mild pulm edema and bilateral atx contributing to hypoxia * Sup mediastinal mass or lymphadenopathy * Significant lower extremity left-sided cellulitis in a lady with chronic left sided venous insufficiency and peripheral vascular disease (high white count, normal gap and lactic acid, with sig fever)- pt growing strep A from the OR cultures\ * Acute renal failure due to Prob contrast induce nephropathy needs follow up * Multiple antibiotic allergies including penicillin * Significant leukocytosis and fever improving * History of asthma with prob sig copd with more than 40 pack yr smoker with mild bronchospasm, now with hypoxemia probably related to VQ mismatch. Unlikely that she has any other pulmonary pathology including pulmonary embolism. However prob has sig copd * Prob tracheomalacia * Morbid obesity, with noted apneas with sig vaishali clinically RECOMMENDATION ATC nebs Ultrasound of the neck to eval for thryoid etc dc ivf as pt appears euvolemic Nebs duoneb and No steroids systemically Infectious disease following Symbicort 160 2 puff bid Heparin sub cut Hold on vq scan for now cont vte prophylaxis
--- NOTE | 2017-02-06 14:36 | PN- Infect Dx ---
Subjective Subjective: Afebrile. She feels improved with no complaints of leg pain. She continues to complain of a persistent cough, which is not new. Objective Last 24 Hrs of Vital Signs/I&O Vital Signs Date Time Temp Pulse Resp B/P B/P Pulse O2 O2 Flow FiO2 Mean Ox Delivery Rate 02/06 1331 98.6 77 20 138/78 96 Nasal 4.0L Cannula 02/06 0900 93 Nasal 4.0L Cannula 02/06 0615 98.3 60 22 140/86 93 Nasal 4.0L Cannula 02/06 0000 Nasal 4.0L Cannula 02/06 0000 96 Nasal 4.0L Cannula 02/05 2231 97.8 87 22 154/74 93 Nasal 4.0L Cannula 02/05 1905 93 Nasal 4.0L Cannula 02/05 1600 94 Nasal 4.0L Cannula 02/05 1600 94 Nasal 4.0L Cannula Intake & Output 02/06 1600 02/06 0800 02/06 0000 Intake Total 800 1180 Output Total 400 2400 Balance 400 -1220 Intake, IV 600 400 Intake, Oral 200 780 Output, Urine 400 2400 Patient 274 lb 273 lb Weight Physical Exam Other Physical Findings: She appears comfortable in no acute distress Lungs bilateral wheezes Heart regular rhythm with no murmur Extremities left leg erythema decreased, with ulcerations over the littlejohn and medial malleolus, mildly tender to palpation Results Last 24 Hours of Lab Results: Laboratory Tests 02/06 0630 Chemistry Sodium (137 - 145 mmol/L) 147 H Potassium (3.5 - 5.1 mmol/L) 4.5 Chloride (98 - 107 mmol/L) 109 H Carbon Dioxide (22 - 30 mmol/L) 26 Anion Gap (5 - 16) 12 BUN (7 - 17 mg/dL) 20 H Creatinine (0.5 - 1.0 mg/dL) 2.0 H Estimated GFR (>60 ml/min) 25 L BUN/Creatinine Ratio (7 - 25 %) 10.0 Hematology CBC w Diff NO MAN DIFF REQ WBC (4.8 - 10.8 /CUMM) 12.9 H RBC (4.20 - 5.40 /CUMM) 3.68 L Hgb (12.0 - 16.0 G/DL) 11.5 L Hct (37 - 47 %) 34.6 L MCV (81.0 - 99.0 FL) 94.2 MCH (27.0 - 31.0 PG) 31.1 H RDW (11.5 - 14.5 %) 15.9 H Plt Count (130 - 400 /CUMM) 196 MPV (7.4 - 10.4 FL) 10.2 Gran % (42.2 - 75.2 %) 74.4 Lymphocytes % (20.5 - 51.1 %) 14.8 L Monocytes % (1.7 - 9.3 %) 8.3 Eosinophils % (0 - 5 %) 2.1 Basophils % (0.0 - 2.0 %) 0.4 Absolute Granulocytes (1.4 - 6.5 /CUMM) 9.6 H Absolute Lymphocytes (1.2 - 3.4 /CUMM) 1.9 Absolute Monocytes (0.10 - 0.60 /CUMM) 1.1 H Absolute Eosinophils (0.0 - 0.7 /CUMM) 0.3 Absolute Basophils (0.0 - 0.2 /CUMM) 0.1 PUBS MCHC (33.0 - 37.0 G/DL) 33.1 Last 24 Hours of Fernando Results: No recent cultures Recent Imaging Studies: CT of the chest February 06 reveals dependent atelectasis in both lower lobes with a bandlike area of volume loss in the right lower lobe with associated air bronchograms; patchy areas of ground glass opacity in both lower lobes, consistent with pulmonary edema; 3 x 1.8 cm soft tissue density mass in the left paratracheal region suspicious for an abnormal solid mass/lymph node, with borderline abnormal lymph nodes seen elsewhere in the anterior superior mediastinum and left axilla; small calcified gallstones Assessment/Plan Impression: 66 year old woman with GERD, morbid obesity, asthma, previous Group A strep and Staph aureus cellulitis admitted on 01/31/17 with sepsis felt to be secondary to a left leg cellulitis following a biopsy of a nonhealing left leg ulcer on the day prior to admission. She remains afebrile but white blood cell count continues to increase since narrowing of her antibiotics to Ampicillin alone, raising concern that other organisms, including Staph aureus, may be involved. Of note a recent bone scan was negative for osteomyelitis. Her CT of the chest findings are noted and may warrant further evaluation and management. Suggestion: 1. Elevation of the left leg 2. Further evaluation/management regarding her CT chest findings per Pulmonary 3. Discontinue Ampicillin 4. Begin Unasyn 3 g IV every 8 hours
--- NOTE | 2017-02-06 14:57 | NUCLEAR MEDICINE REPORT ---
EXAMINATION: PULMONARY VENTILATION PERFUSION STUDY CLINICAL INFORMATION: Hypoxia with clear chest x-ray. COMPARISON: No previous lung scan is available for comparison. Chest CT scan performed without intravenous contrast dated 02/06/2017, the same date as this lung scan, is available for comparison. Chest radiographs dated 02/05/2017 are also available for comparison. TECHNIQUE: Serial gamma scintillation camera images were obtained over the posterior chest during the single breath, equilibrium rebreathing and washout of 17.7 mCi Xe 133 gas. The patient then received 3.8 mCi Tc-99m MAA intravenously and a 6-view perfusion study was performed. FINDINGS: Ventilation images: On the single breath and equilibrium images there is homogeneous distribution of gas bilaterally. During the washout phase there is very mild retention diffusely. Perfusion images: No segmental perfusion defects are present. There is minimal heterogeneity bilaterally. There are no focal anatomic appearing perfusion defects present. The cardiac silhouette and mediastinum appear dilated. IMPRESSION: Very low probability of pulmonary embolism.
--- NOTE | 2017-02-06 17:15 | ULTRASOUND REPORT ---
EXAMINATION: US THYROID CLINICAL INFORMATION: Thyroid enlargement with stridor. COMPARISON: CT dated earlier the same day. TECHNIQUE: Linear transducer grayscale and color Doppler examination with attention to the region of the thyroid. Selected images are provided for interpretation. FINDINGS: Technologist notes that the exam is somewhat limited due to patient body habitus and heavy breathing. SIZE: Measurements of the thyroid lobes and nodules are given in sagittal, anteroposterior and transverse dimensions respectively. Right Thyroid Lobe: 4.1 x 2.2 x 1.7 cm, volume 8.0 mL. Left Thyroid Lobe: 3.7 x 1.2 x 1.9 cm, volume 4.4 mL. Isthmus: Mildly thickened 0.5 cm in maximum AP dimension. PARENCHYMA: The gland echotexture is diffusely heterogeneous. Thyroid vascularity is normal. RIGHT THYROID LOBE: No nodules. ISTHMUS: No nodules. LEFT THYROID LOBE: No nodules. NODES: There is an indeterminant mildly prominent node labeled lateral to left thyroid which measures 1.5 x 1.1 x 0.9 cm with a 5 to 6 mm thick cortex with effacement of the normal fatty hilum. IMPRESSION: 1. Mild diffuse heterogeneity throughout the thyroid gland which is not definitively enlarged other than a small thickening. 2. Indeterminate lymph node, this may be reactive, neoplasm not excluded. Only a single node is identified on the images provided. CT with intravenous contrast or MRI with and without contrast could be performed to further evaluate if indicated clinically.
[2017-02-06 22:41] VITALS: BP 148/68
[2017-02-07 06:21] VITALS: BP 138/84
--- NOTE | 2017-02-07 07:51 | PN- Housestaff ---
TARAN RODRIGUES,AMY 02/07/17 0751: Subjective Follow-up For: Cellulitis Acute hypoxic respiratory failure Subjective: Saw pt at bedside this AM. She stated that she felt much better. Decreased subjective wheezing and SOB. No acute overnight events or complaints. Review of Systems Constitutional: Denies: chills, malaise, weakness. EENTM: Reports: no symptoms. Cardiovascular: Reports: peripheral edema. Denies: chest pain, palpitations. Respiratory: Reports: short of breath, wheezing. Gastrointestinal: Reports: no symptoms. Genitourinary: Reports: no symptoms. Musculoskeletal: Reports: back pain, joint pain, muscle stiffness. Objective Last 24 Hrs of Vital Signs/I&O Vital Signs Date Time Temp Pulse Resp B/P B/P Pulse O2 O2 Flow FiO2 Mean Ox Delivery Rate 02/07 0845 92 Nasal 2.5L Cannula 02/07 0621 98.9 95 20 138/84 92 Nasal 3.0L Cannula 02/07 0000 Nasal 3.0L Cannula 02/07 0000 Nasal 3.0L Cannula 02/06 2241 98.5 84 18 148/68 94 Nasal 4.0L Cannula 02/06 1930 97 Nasal 4.0L Cannula 02/06 1600 Nasal 4.0L Cannula 02/06 1600 97 Nasal 4.0L Cannula 02/06 1331 98.6 77 20 138/78 96 Nasal 4.0L Cannula Intake & Output 02/07 1600 05 0800 05/05 0000 Intake Total 100 900 Output Total 300 700 Balance -200 200 Intake, IV 100 100 Intake, Oral 800 Number 1 Bowel Movements Output, Urine 300 700 Patient 124.539 kg Weight Physical Exam General Appearance: Alert, Oriented X3, Cooperative, No Acute Distress Skin: No Significant Lesion HEENT: Atraumatic, PERRLA, EOMI Neck: Supple Cardiovascular: Regular Rate, Normal S1, Normal S2, No Murmurs Lungs: Clear to Auscultation Abdomen: Soft, No Tenderness Neurological: Normal Speech Extremities: Pt still has erythema on dorsum of foot. Erythema looks improved from yesterday. Bandages clean no drainage noted Assessment/Plan Assessment: Ms. Platt is a 66 year old female with PMH GERD, asthma, morbid obesity, previous strep A and staph aureus cellulitis and non-healing left leg ulcer who presents with a one day history of left lower extremity erythema, swelling and non-healing ulcer. She also noted decreased appetite, subjective fever, chills and shortness of breath with cough. Patient was initially admitted to the ICU and on 02/01 was transferred to once Nec fasc was ruled out. PLAN 1. Sepsis secondary to left lower extremity cellulitis: White count 11.7 today. Pt remained afebrile. She states her LE does feel improved. Initial Lower Extremity CT: Subcutaneous edema. No focal fluid collection or abscess. Culture showing moderate growth of B-group Strep A. Pt has hx of strep and staph cellulitis. Bone scan not indicative of osteomyelitis. * Con't Ampicillin. Switch to Ampicillin on 02/04/2017. Dose frequency increased on 02/05/2017. * Previously she got 5 days of IV clindamycin (Started on 01/31/2017). Vanco given for 3 days; (01/31/2017--> 02/02/2017) (Total: Day 8 of antibiotics) * Lower extremity doppler is negative for clot * Consult w/ Dr. Hernandez as he sees patient outpatient for non-healing ulcers * Elevate legs * Jaeger culture, monitor for fevers. * Plastics following. Thank you for recs. Pt will follow up on out pt basis. Possible consideration of skin graft. 2. ARF: On 02/03 pt's Cr noted to go from 1.2-->2-->2.2-->2.1-->2.0-->2.0. She recieved contrast for imaging; in addition to Vancomycin administration. DDX: Contrast induced nephropathy vs AIN vs. ATN. Renal US negative for obstruction. ARF likely combination of sepsis, LE etc. * Thank you nephrology consult * We D/C IVF given worsening pulm fnxn * Monitor BEP and Cr closely * Switched Lovenox to SQ Heparin 3. Acute hypoxic respiratory failure in the setting of asthma/COPD: She has recieved aggressive fluids (100cc/hr for >48 hrs) 2/2 to ARF and EL. Pt has Wells score < 2. Initially could not obtain CT PE given worsening renal function. V/Q scan showing low prob of PE. Unlikely PE. Likely fluid overload superimposed on her baseline poor pulm status. She has extensive smoking history , is obese and has noted apnea spells during sleep. Pulmonary concern for COPD/ TAYLRO/Tracheomalacia. * Provide supplemental O2 to maintain O2 sats >92% * [facility] evaluation * No systemic steroids for now * Started symbicort 02/02/2017 * She will require outpatinent sleep study and likely CPAP 4. GERD * Continue omeprazole daily 5. HLD * Continue statin DNR/DNI (will accept a central line) Heart Healthy Diet DVTP: SC lovenox Problem List: 1. Leg ulcer, left 2. Leukocytosis 3. Left leg cellulitis Pain Ratin Pain Location: none Pain Goal: Remain pain free Pain Plan: none Tomorrow's Labs & Rationales: cbc bep DVT/Prophylaxis: pharmacological RAMANDEEP RENEE MD 02/07/17 1708: Attending MD Review Statement Attending Statement Attending MD Statement: examined this patient, discuss w/resident/PA/HAND DRY CLEANER, agreed w/resident/PA/HAND DRY CLEANER, reviewed EMR data (avail), reviewed images, amended to note Attending Assessment/Plan: Ms. Platt states she is feeling better. She thinks she is in less respiratory distress and overall has no complaints. She does note that her leg is continuing to improve. Concerning her leg cellulitis/sepsis her maximum temperature is 99.1 and her oxygen requirement is reduced to 2.5 L via NC. Her WBC has decreased to 11.7 ( decreased from 12.9). She is now being treated with ampicillin/sulbactam which we are continuing. We are continuing with [id number] nebs and Symbicort. Her renal function appears to have leveled off with a creatinine of 2.0. She remains asymptomatic. Her CHF appears to be improving without diuretics. I agree with further at evaluation of her thyroid gland and the indeterminate lymph node with soft tissue CT. Her maintenance medications are being continued.
[2017-02-07 09:17] LABS: ABSOLUTE BASOPHIL COUNT 0.1 /CUMM (0.0-0.2); ABSOLUTE EOSINOPHIL COUNT 0.3 /CUMM (0.0-0.7); ABSOLUTE LYMPH COUNT 1.7 /CUMM (1.2-3.4); ABSOLUTE MONOCYTE COUNT 0.6 /CUMM (0.10-0.60); BASOPHIL % 0.6 % (0.0-2.0); EOSINOPHIL % 2.8 % (0-5); GRANULOCYTE % 77.1 % (42.2-75.2); MEAN CORPUSCULAR HGB 31.1 PG (27.0-31.0); MEAN CORPUSCULAR VOLUME 94.2 FL (81.0-99.0); MEAN PLATELET VOLUME 9.6 FL (7.4-10.4); PLATELET COUNT 223 /CUMM (130-400); RBC DISTRIBUTION WIDTH 15.8 % (11.5-14.5); RED BLOOD CELL CT 3.71 /CUMM (4.20-5.40); WHITE BLOOD CELL COUNT 11.7 /CUMM (4.8-10.8)
--- NOTE | 2017-02-07 11:06 | PN- Infect Dx ---
Subjective Subjective: Afebrile without complaints Objective Last 24 Hrs of Vital Signs/I&O Vital Signs Date Time Temp Pulse Resp B/P B/P Pulse O2 O2 Flow FiO2 Mean Ox Delivery Rate 02/07 08 92 Nasal 2.5L Cannula 02/07 0621 98.9 95 20 138/84 92 Nasal 3.0L Cannula 02/07 0000 Nasal 3.0L Cannula 02/07 0000 Nasal 3.0L Cannula 02/06 2241 98.5 84 18 148/68 94 Nasal 4.0L Cannula 02/06 1930 97 Nasal 4.0L Cannula 02/06 1600 Nasal 4.0L Cannula 02/06 1600 97 Nasal 4.0L Cannula 02/06 1331 98.6 77 20 138/78 96 Nasal 4.0L Cannula Intake & Output 02/07 0800 02/07 0000 Intake Total 100 900 Output Total 300 700 Balance -200 200 Intake, IV 100 100 Intake, Oral 800 Number 1 Bowel Movements Output, Urine 300 700 Patient 275 lb Weight Physical Exam Other Physical Findings: She appears comfortable in no acute distress Lungs bilateral wheezes persists Extremities left leg erythema persists, nontender to palpation Results Last 24 Hours of Lab Results: Laboratory Tests 02/07 818 Chemistry Sodium (137 - 145 mmol/L) 145 Potassium (3.5 - 5.1 mmol/L) 4.6 Chloride (98 - 107 mmol/L) 107 Carbon Dioxide (22 - 30 mmol/L) 28 Anion Gap (5 - 16) 10 BUN (7 - 17 mg/dL) 19 H Creatinine (0.5 - 1.0 mg/dL) 2.0 H Estimated GFR (>60 ml/min) 25 L BUN/Creatinine Ratio (7 - 25 %) 9.5 Hematology CBC w Diff NO MAN DIFF REQ WBC (4.8 - 10.8 /CUMM) 11.7 H RBC (4.20 - 5.40 /CUMM) 3.71 L Hgb (12.0 - 16.0 G/DL) 11.5 L Hct (37 - 47 %) 35.0 L MCV (81.0 - 99.0 FL) 94.2 MCH (27.0 - 31.0 PG) 31.1 H RDW (11.5 - 14.5 %) 15.8 H Plt Count (130 - 400 /CUMM) 223 MPV (7.4 - 10.4 FL) 9.6 Gran % (42.2 - 75.2 %) 77.1 H Lymphocytes % (20.5 - 51.1 %) 14.4 L Monocytes % (1.7 - 9.3 %) 5.1 Eosinophils % (0 - 5 %) 2.8 Basophils % (0.0 - 2.0 %) 0.6 Absolute Granulocytes (1.4 - 6.5 /CUMM) 9.0 H Absolute Lymphocytes (1.2 - 3.4 /CUMM) 1.7 Absolute Monocytes (0.10 - 0.60 /CUMM) 0.6 Absolute Eosinophils (0.0 - 0.7 /CUMM) 0.3 Absolute Basophils (0.0 - 0.2 /CUMM) 0.1 PUBS MCHC (33.0 - 37.0 G/DL) 33.0 Last 24 Hours of Fernando Results: No recent cultures Recent Imaging Studies: VQ scan May 4 very low probability of pulmonary embolism Assessment/Plan Impression: Stable now on Unasyn, begun yesterday to cover Staph aureus in addition to the Group A strep that was isolated from her most recent superficial culture, now Day 7 of antibiotics for her left leg cellulitis following a biopsy of a nonhealing left leg ulcer on the day prior to admission. She remains afebrile and white blood cell count has decreased today with the change to Unasyn. Of note a recent bone scan was negative for osteomyelitis. Suggestion: 1. Continue elevation of the left leg 2. Continue Unasyn
--- NOTE | 2017-02-07 14:18 | PN- Pulmonary ---
Subjective HPI/Critical Care Issues: little better Decreased subjective wheezing and SOB. No acute overnight events or complaints. Review of Systems Constitutional: Denies: chills, malaise, weakness. EENTM: Reports: no symptoms. Cardiovascular: Reports: peripheral edema. Denies: chest pain, palpitations. Respiratory: Reports: short of breath, wheezing. Gastrointestinal: Reports: no symptoms. Genitourinary: Reports: no symptoms. Musculoskeletal: Reports: back pain, joint pain, muscle stiffness. Objective Current Medications: Current Medications Sig/Pop Start time Last Medication Dose Route Stop Time Status Admin Acetaminophen 650 MG .STK-MED ONE 02/07 0218 DC PO 02/07 021 Acetaminophen 650 MG .STK-MED ONE 02/07 2024 DC PO 02/06 202 Acetaminophen 650 MG Q4P PRN 02/03 1130 AC 02/07 PO 1357 Albuterol Sulfate 3 ML TID 02/01 1046 AC 02/07 INH 1314 Albuterol Sulfate 2 PUF Q4 HRS NEEDED PRN 01/31 2345 AC INH Ampicillin 2,000 MG Q8 02/05 2200 DC 02/06 Sodium Chloride 100 ML IV 1302 Ampicillin Sodium/ 3,000 MG Q8H 02/07 0130 AC 02/07 Sulbactam Sodium IV 0902 Sodium Chloride 100 ML Ampicillin Sodium/ 3,000 MG Q8 02/06 1459 DC 02/06 Sulbactam Sodium IV 1723 Sodium Chloride 100 ML Ampicillin Sodium/ 3,000 MG Q8H 02/06 0130 CAN Sulbactam Sodium IV Sodium Chloride 100 ML Atorvastatin Calcium 10 MG DAILY 02/01 1000 AC 02/07 PO 0902 Budesonide/ 2 PUF BID 02/01 1000 AC 02/07 Formoterol Fumarate INH 0902 Heparin Sodium 5,000 UNIT Q8 02/03 1400 AC 02/07 (Porcine) SC 1357 Ipratropium [place] 2.5 ML TID 02/01 1047 AC 02/07 INH 1314 Lactobacillus 1 CAP DAILY 02/05 1000 AC 02/07 Acidophilus PO 0902 Methyl Salicylate 1 EYAD Q6-PRN PRN 02/02 1200 AC 02/05 TOP 1740 Nystatin 1 EYAD TID PRN 02/01 1415 AC TOP Omeprazole 40 MG DAILY AC 02/01 0700 AC 02/07 PO 0615 Oxycodone/ 2 TAB Q6P PRN 01/31 2345 AC 02/02 Acetaminophen PO 2318 Patient Medication 1 ED .STK-MED ONE 02/07 1254 DC Teaching ED 02/07 1255 Sodium Chloride 1,000 ML Q10H 02/06 0545 DC 02/06 IV 02/07 0144 0753 Zolpidem Tartrate 5 MG AT BEDTIME 02/03 2200 AC 02/04 PO 2138 Vital Signs & I&O Last 24 Hrs of Vitals and I&O: Vital Signs Date Time Temp Pulse Resp B/P B/P Pulse O2 O2 Flow FiO2 Mean Ox Delivery Rate 02/07 0845 92 Nasal 2.5L Cannula 02/07 0621 98.9 95 20 138/84 92 Nasal 3.0L Cannula 02/07 0000 Nasal 3.0L Cannula 02/07 0000 Nasal 3.0L Cannula 02/06 2241 98.5 84 18 148/68 94 Nasal 4.0L Cannula 02/06 1930 97 Nasal 4.0L Cannula 02/06 1600 Nasal 4.0L Cannula 02/06 1600 97 Nasal 4.0L Cannula Intake & Output 02/07 1600 02/07 0800 02/07 0000 Intake Total 100 900 Output Total 300 700 Balance -200 200 Intake, IV 100 100 Intake, Oral 800 Number 1 Bowel Movements Output, Urine 300 700 Patient 275 lb Weight Impression/Plan Impression/Plan Impression/Plan: Well-developed well-nourished obese female, looks stated age, no apparent distress. HEENT: Atraumatic, extraocular motion intact Neck: Supple, no lymphadenopathy Respiratory: Mild increased respiratory rate and effort Heart: Tachycardic Abdomen: Obese Extremities: Right lower extremity benign Left lower extremity with severe erythema circumferentially bandaged leg Dorsal pedal pulses are intact 2+ Neuro: Alert and oriented x3 Psych: Mood affect normal, normal memory normal judgment. Lower extremity Doppler negative for DVT chest ct reviewed IMPRESSION: 1. No evidence of pleural effusion. 2. Pulmonary findings are most consistent with pulmonary edema. Some of the groundglass opacity areas appear more focal and nodular, example in the inferior aspect of the right upper lobe. Consider follow-up evaluation post treatment to document resolution of findings. 3. Bibasilar volume loss and dependent atelectasis seen. Superimposed bandlike area of atelectatic change in the right lower lobe is also noted. 4. Abnormal adenopathy is seen in the anterior superior mediastinum and in the lower left neck, incompletely imaged. Less likely, the finding in the left lower leg may be related to a thyroid mass. Further assessment with thyroid ultrasound and soft tissue neck ultrasound is recommended. 5. Cholelithiasis. IMPRESSION This is a lady with chronic lower extremity venous ulcer, chronic edema of the leg, morbid obesity, recent surgery to the lower extremity with wound VAC placement and graft done by Dr. Stone Stiles now comes in with * Mild pulm edema and bilateral atx contributing to hypoxia improving * Sup mediastinal mass or lymphadenopathy, with a goitre and prob lymphadenopathy * Significant lower extremity left-sided cellulitis in a lady with chronic left sided venous insufficiency and peripheral vascular disease * Resolving Acute renal failure due to Prob contrast induce nephropathy needs follow up * Multiple antibiotic allergies including penicillin * Significant leukocytosis and fever improving * History of asthma with prob sig copd with more than 40 pack yr smoker with mild bronchospasm, now with hypoxemia probably related to VQ mismatch. 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
[2017-02-07 14:20] VITALS: BP 146/80
--- NOTE | 2017-02-07 14:26 | NUR ---
WOUND CARE; WOUND CLEANSED PER DR POLANCO REQUEST AND TREATMENT REAPPLIED - PLEASE CONT CURRENT WOUND CARE DAILY RECOMMENDED BY DR POLANCO
--- NOTE | 2017-02-07 15:00 | PN- Nephrology ---
Assessment/Plan Assessment: 1. Acute kidney injury (ATN) secondary to contrast/sepsis - nonoliguric - stabilized (no better/no worse) 2. Cellulitis and poorly healing ulcer left lower extremity; wound culture growing beta strep group A 3. Peripheral vascular disease 4. Asthma 5. Multiple drug allergies Suggestion: 1. Continue to maintain good hydration and to monitor intake and output, chemistries daily 2. Antibiotic therapy per ID Subjective Subjective: Patient has no complaints today. She feels that her leg has been getting better. Vital signs are stable and she remains afebrile. CBC 11.7. Renal function stable at creatinine of 2.0. I/O: 3025/2150 Objective Vital Signs and I&Os Vital Signs Date Time Temp Pulse Resp B/P B/P Pulse O2 O2 Flow FiO2 Mean Ox Delivery Rate 02/07 1420 99.1 85 20 146/80 95 Nasal 2.5L Cannula 02/07 0845 92 Nasal 2.5L Cannula 02/07 0621 98.9 95 20 138/84 92 Nasal 3.0L Cannula 02/07 0000 Nasal 3.0L Cannula 02/07 0000 Nasal 3.0L Cannula 02/06 2241 98.5 84 18 148/68 94 Nasal 4.0L Cannula 02/06 1930 97 Nasal 4.0L Cannula 02/06 1600 Nasal 4.0L Cannula 02/06 1600 97 Nasal 4.0L Cannula Intake & Output 02/07 1600 05/05 0400 05/04 1600 05/04 0400 05/03 1600 05/03 0400 Intake Total 941 858 5539 1180 3250 2850 Output Total 526 318 9937 2400 600 1550 Balance -200 200 675 -1220 2650 1300 Intake, IV 368 592 6742 400 1600 1000 Intake, Oral 800 2123 281 1778 1850 Number 1 1 1 1 2 Bowel Movements Output, Urine 872 538 3931 2400 600 1550 Patient 275 lb 274 lb 273 lb Weight Physical Exam: General: Well-developed, obese white female in NAD Skin: No rash or jaundice; see extremities below HEENT: Conjunctivae pink, sclerae anicteric, mucous membranes moist Neck: Without masses or thyromegaly, no supraclavicular or cervical adenopathy Chest: Scattered wheezes bilaterally - persistent Heart: Regular rate and rhythm without S3 or rub Abdomen: Obese, soft and nontender without palpable masses or organomegaly Extremities: Without edema on right, left lower leg is edematous and erythematous to upper thigh; dressing intact Neuro: No focal findings, no asterixis or myoclonus Results Pertinent Lab Results: Laboratory Tests 02/07 02/06 0818 0630 Chemistry Sodium (137 - 145 mmol/L) 145 147 H Potassium (3.5 - 5.1 mmol/L) 4.6 4.5 Chloride (98 - 107 mmol/L) 107 109 H Carbon Dioxide (22 - 30 mmol/L) 28 26 Anion Gap (5 - 16) 10 12 BUN (7 - 17 mg/dL) 19 H 20 H Creatinine (0.5 - 1.0 mg/dL) 2.0 H 2.0 H Estimated GFR (>60 ml/min) 25 L 25 L BUN/Creatinine Ratio (7 - 25 %) 9.5 10.0 Hematology CBC w Diff NO MAN DIFF REQ NO MAN DIFF REQ WBC (4.8 - 10.8 /CUMM) 11.7 H 12.9 H RBC (4.20 - 5.40 /CUMM) 3.71 L 3.68 L Hgb (12.0 - 16.0 G/DL) 11.5 L 11.5 L Hct (37 - 47 %) 35.0 L 34.6 L MCV (81.0 - 99.0 FL) 94.2 94.2 MCH (27.0 - 31.0 PG) 31.1 H 31.1 H RDW (11.5 - 14.5 %) 15.8 H 15.9 H Plt Count (130 - 400 /CUMM) 223 196 MPV (7.4 - 10.4 FL) 9.6 10.2 Gran % (42.2 - 75.2 %) 77.1 H 74.4 Lymphocytes % (20.5 - 51.1 %) 14.4 L 14.8 L Monocytes % (1.7 - 9.3 %) 5.1 8.3 Eosinophils % (0 - 5 %) 2.8 2.1 Basophils % (0.0 - 2.0 %) 0.6 0.4 Absolute Granulocytes (1.4 - 6.5 /CUMM) 9.0 H 9.6 H Absolute Lymphocytes (1.2 - 3.4 /CUMM) 1.7 1.9 Absolute Monocytes (0.10 - 0.60 /CUMM) 0.6 1.1 H Absolute Eosinophils (0.0 - 0.7 /CUMM) 0.3 0.3 Absolute Basophils (0.0 - 0.2 /CUMM) 0.1 0.1 PUBS MCHC (33.0 - 37.0 G/DL) 33.0 33.1 05/03 0626 Chemistry Sodium (137 - 145 mmol/L) 145 Potassium (3.5 - 5.1 mmol/L) 4.5 Chloride (98 - 107 mmol/L) 109 H Carbon Dioxide (22 - 30 mmol/L) 26 Anion Gap (5 - 16) 9 BUN (7 - 17 mg/dL) 20 H Creatinine (0.5 - 1.0 mg/dL) 2.1 H Estimated GFR (>60 ml/min) 24 L BUN/Creatinine Ratio (7 - 25 %) 9.5 Hematology CBC w Diff NO MAN DIFF REQ WBC (4.8 - 10.8 /CUMM) 11.3 H RBC (4.20 - 5.40 /CUMM) 3.73 L Hgb (12.0 - 16.0 G/DL) 11.4 L Hct (37 - 47 %) 34.6 L MCV (81.0 - 99.0 FL) 92.9 MCH (27.0 - 31.0 PG) 30.7 RDW (11.5 - 14.5 %) 16.2 H Plt Count (130 - 400 /CUMM) 171 MPV (7.4 - 10.4 FL) 9.9 Gran % (42.2 - 75.2 %) 75.8 H Lymphocytes % (20.5 - 51.1 %) 12.5 L Monocytes % (1.7 - 9.3 %) 9.2 Eosinophils % (0 - 5 %) 2.3 Basophils % (0.0 - 2.0 %) 0.2 Absolute Granulocytes (1.4 - 6.5 /CUMM) 8.5 H Absolute Lymphocytes (1.2 - 3.4 /CUMM) 1.4 Absolute Monocytes (0.10 - 0.60 /CUMM) 1.0 H Absolute Eosinophils (0.0 - 0.7 /CUMM) 0.3 Absolute Basophils (0.0 - 0.2 /CUMM) 0 PUBS MCHC (33.0 - 37.0 G/DL) 33.1
--- NOTE | 2017-02-07 17:02 | NUR ---
NURSING NOTE: PATIENT LEFT FLOOR VIA STRETCHER WITH DISTRIBUTION TO CT SCAN. PATIENT A/OX3, DENIES PAIN AT THIS TIME. WILL AWAIT RETURN.
--- NOTE | 2017-02-07 17:40 | NUR ---
NURSING NOTE: PATIENT RETURNED TO FLOOR VIA STRETCHER WITH DISTRIBUTION FROM CT SCAN. NO CHANGES NOTED.
--- NOTE | 2017-02-07 18:10 | CT SCAN REPORT ---
EXAMINATION: CT NECK WITHOUT CONTRAST CLINICAL INFORMATION: Rule out thyroid malignancy. Patient has abnormal thyroid ultrasound. COMPARISON: Thyroid ultrasound 02/06/2017. TECHNIQUE: Axial images obtained through the neck without IV contrast. Coronal and sagittal reformatted images are performed at CT scanner. DLP: 567.93 mGy-cm. FINDINGS: There are scattered multiple bilateral lymph nodes. On the thyroid ultrasound there was a lymph node noted in the neck lateral to the left lobe of thyroid. There are several subcentimeter lymph nodes in this region all of which demonstrate fatty cedrick. These lymph nodes though are mildly enlarged. The largest measuring up to a short axis diameter of 1.5 cm. Most of the bulky lymph nodes are in the left supraclavicular region, axial image 59 (4), image 59 (4) and image 53 (4), axial image 261 (3), coronal image 51. Thyroid, submandibular glands and parotid glands are unremarkable. Nasopharynx, pharynx and hypopharynx are unremarkable. No prevertebral soft tissue swelling. The fat planes through the neck are normal. The partially visualized intracranial structures are unremarkable. The paranasal sinuses and mastoid air cells are normally aerated. Orbits are unremarkable. There is degenerative change of cervical spine. Disc height narrowing with endplate spurs seen at C5-C6, C6-C7 and the upper thoracic spine disc levels. Lung apices clear. There is vascular wall calcifications of the thoracic aortic arch. IMPRESSION: Left-sided lymphadenopathy in the neck primarily in the supraclavicular region. PET/CT may be helpful for further assessment of lymphadenopathy.
[2017-02-07 22:57] VITALS: BP 158/68
[2017-02-08 06:35] VITALS: BP 156/82
--- NOTE | 2017-02-08 07:56 | PN- Housestaff ---
Subjective Follow-up For: cellulitis Subjective: pt seen today, she feels better. breathing improved, on 3l o2. told her that she probably needs ct/pet, but wont be available till friday and can be done as outpatient. she feels that leg swelling and erythema has significantly improved. Review of Systems Constitutional: Reports: see HPI. Objective Last 24 Hrs of Vital Signs/I&O Vital Signs Date Time Temp Pulse Resp B/P B/P Pulse O2 O2 Flow FiO2 Mean Ox Delivery Rate 02/08 803 88 Nasal 3.0L Cannula 02/09 800 91 Nasal 3.0L Cannula 02/08 08 91 Nasal 3.0L Cannula 02/08 0635 99.3 92 24 156/82 90 02/08 0000 Nasal 3.0L Cannula 02/08 0000 Nasal 3.0L Cannula 02/07 2257 98.7 84 20 158/68 94 Nasal 4.0L Cannula 02/07 1928 93 Nasal 2.5L Cannula 02/07 1600 Nasal 3.0L Cannula 02/07 1420 99.1 85 20 146/80 95 Nasal 2.5L Cannula Intake & Output 02/08 1600 02/08 0800 05 0000 Intake Total 100 240 Output Total 1500 Balance 100 -1260 Intake, IV 100 Intake, Oral 240 Output, Urine 1500 Patient 78.925 kg Weight Weight Standing Scale Measurement Method Physical Exam General Appearance: Alert, Oriented X3, Cooperative, No Acute Distress Cardiovascular: Regular Rate, Normal S1, Normal S2 Lungs: insp and exp crackles and wheezing Abdomen: Normal Bowel Sounds, Soft, No Tenderness Extremities: left leg wrapped Current Medications: Current Medications Sig/Pop Start time Last Medication Dose Route Stop Time Status Admin Acetaminophen 650 MG .STK-MED ONE 02/07 2143 DC PO 02/07 214 Acetaminophen 650 MG .STK-MED ONE 02/07 1349 DC PO 02/07 1350 Acetaminophen 650 MG Q4P PRN 02/03 1130 AC 02/07 PO 214 Albuterol Sulfate 3 ML TID 02/01 1046 AC 02/08 INH 0758 Albuterol Sulfate 2 PUF Q4 HRS NEEDED PRN 01/31 2345 AC INH Ampicillin Sodium/ 3,000 MG Q8H 02/07 0130 AC 02/08 Sulbactam Sodium IV 0851 Sodium Chloride 100 ML Atorvastatin Calcium 10 MG DAILY 02/01 1000 AC 02/08 PO 0851 Budesonide/ 2 PUF BID 02/01 1000 AC 02/08 Formoterol Fumarate INH 0856 Heparin Sodium 5,000 UNIT Q8 02/03 1400 AC 02/08 (Porcine) SC 0555 Ipratropium [place] 2.5 ML TID 02/01 1047 AC 02/08 INH 0758 Lactobacillus 1 CAP DAILY 02/05 1000 AC 02/08 Acidophilus PO 0851 Methyl Salicylate 1 EYAD Q6-PRN PRN 02/02 1200 AC 02/05 TOP 1740 Nystatin 1 EYAD TID PRN 02/01 1415 AC TOP Omeprazole 40 MG DAILY AC 02/01 0700 AC 02/08 PO 0554 Oxycodone/ 2 TAB Q6P PRN 01/31 2345 AC 02/02 Acetaminophen PO 2318 Patient Medication 1 ED .STK-MED ONE 02/07 1254 DC Teaching ED 02/07 1255 Zolpidem Tartrate 5 MG AT BEDTIME 02/03 2200 AC 02/08 PO 0206 Assessment/Plan Assessment: Ms. Platt is a 66 year old female with PMH GERD, asthma, morbid obesity, previous strep A and staph aureus cellulitis and non-healing left leg ulcer who presents with a one day history of left lower extremity erythema, swelling and non-healing ulcer. She also noted decreased appetite, subjective fever, chills and shortness of breath with cough. Patient was initially admitted to the ICU and on 02/01 was transferred to once Nec fasc was ruled out. PLAN 1. Sepsis secondary to left lower extremity cellulitis: Pt remained afebrile. She states her LE does feel improved. Initial Lower Extremity CT: Subcutaneous edema. No focal fluid collection or abscess. Culture showing moderate growth of B-group Strep A. Pt has hx of strep and staph cellulitis. Bone scan not indicative of osteomyelitis. * On Unasyn. (Total: Day 9 of antibiotics). * Previously she got 5 days of IV clindamycin (Started on 01/31/2017). Vanco given for 3 days; (01/31/2017--> 02/02/2017) Switched to Ampicillin on 2016. Dose frequency increased on 02/05/2017 * Lower extremity doppler is negative for clot * Consult w/ Dr. Hernandez as he sees patient outpatient for non-healing ulcers * Elevate legs * Jaeger culture, monitor for fevers. * Plastics following. Thank you for recs. Pt will follow up on out pt basis. Possible consideration of skin graft. 2. ARF: On 02/03 pt's Cr noted to go from 1.2-->2-->2.2-->2.1-->2.0-->2.0. She recieved contrast for imaging; in addition to Vancomycin administration. DDX: Contrast induced nephropathy vs AIN vs. ATN. Renal US negative for obstruction. ARF likely combination of sepsis, LE etc. * Thank you nephrology consult * We D/C IVF given worsening pulm fnxn * Monitor BEP and Cr closely * Switched Lovenox to SQ Heparin 3. Acute hypoxic respiratory failure in the setting of asthma/COPD: She has recieved aggressive fluids (100cc/hr for >48 hrs) 2/2 to ARF and LE. Pt has Wells score < 2. Initially could not obtain CT PE given worsening renal function. V/Q scan showing low prob of PE. Unlikely PE. Likely fluid overload superimposed on her baseline poor pulm status. She has extensive smoking history , is obese and has noted apnea spells during sleep. Pulmonary concern for COPD/ TAYLOR/Tracheomalacia. * Provide supplemental O2 to maintain O2 sats >92% * [facility] [place] evaluation * No systemic steroids for now * Started symbicort 02/02/2017 * She will require outpatinent sleep study and likely CPAP 4. GERD * Continue omeprazole daily 5. HLD * Continue statin 6. Goiter - CT neck done, recc CT/PET for enlarged supraclavicular lymph node DNR/DNI (will accept a central line) Heart Healthy Diet DVTP: [place] lovenox Problem List: 1. Left leg cellulitis Pain Ratin Pain Location: none Pain Goal: Remain pain free Pain Plan: mild pp Tomorrow's Labs & Rationales: bep for monitoring kidney function cbc for leukocytosis DVT/Prophylaxis: mechanical, pharmacological
[2017-02-08 14:50] VITALS: BP 148/80
--- NOTE | 2017-02-08 17:12 | PN- Att Addend ---
Attending Addendum Attending Brief Note Covering attending note Patient comfortable in bed states her leg feels a little better when she is a febrile, no major changes on physical. She had a CAT scan of the neck that showed a left-sided lymphadenopathy in the neck primarily in the supraclavicular region there and maybe more workup is needed for that. Continue all other treatments with the antibiotics, care of the legs Current Medications Sig/Pop Start time Last Medication Dose Route Stop Time Status Admin Acetaminophen 650 MG .STK-MED ONE 02/07 214 DC PO 02/07 214 Acetaminophen 650 MG Q4P PRN 02/03 1130 AC 02/08 PO 1331 Albuterol Sulfate 3 ML TID 02/01 1046 AC 02/08 INH 1421 Albuterol Sulfate 2 PUF Q4 HRS NEEDED PRN 01/31 2345 AC INH Ampicillin Sodium/ 3,000 MG Q8H 02/07 0130 AC 02/08 Sulbactam Sodium IV 0851 Sodium Chloride 100 ML Atorvastatin Calcium 10 MG DAILY 02/01 1000 AC 02/08 PO 0851 Budesonide/ 2 PUF BID 02/01 1000 AC 02/08 Formoterol Fumarate INH 0856 Heparin Sodium 5,000 UNIT Q8 02/03 1400 AC 02/08 (Porcine) SC 1331 Ipratropium [place] 2.5 ML TID 02/01 1047 AC 02/08 INH 1421 Lactobacillus 1 CAP DAILY 02/05 1000 AC 02/08 Acidophilus PO 0851 Methyl Salicylate 1 EYAD Q6-PRN PRN 02/02 1200 AC 02/05 TOP 1740 Nystatin 1 EYAD TID PRN 02/01 1415 AC TOP Omeprazole 40 MG DAILY AC 02/01 0700 AC 02/08 PO 0554 Oxycodone/ 2 TAB Q6P PRN 01/31 2345 AC 02/02 Acetaminophen PO 2318 Zolpidem Tartrate 5 MG AT BEDTIME 02/03 2200 AC 02/08 PO 0206 Vital Signs Date Time Temp Pulse Resp B/P B/P Pulse O2 O2 Flow FiO2 Mean Ox Delivery Rate 02/08 1450 98.9 90 22 148/80 94 Nasal 3.0L Cannula Intake & Output 02/08 1600 Intake Total 1110 Output Total 1150 Balance -40 Intake, IV 110 Intake, Oral 1000 Number 1 Bowel Movements Output, Urine 1150
[2017-02-08 22:59] VITALS: BP 140/80
[2017-02-09 06:53] VITALS: BP 161/88
[2017-02-09 09:25] LABS: ABSOLUTE BASOPHIL COUNT 0 /CUMM (0.0-0.2); ABSOLUTE EOSINOPHIL COUNT 0.3 /CUMM (0.0-0.7); ABSOLUTE GRANULOCYTE CT 7.1 /CUMM (1.4-6.5); ABSOLUTE LYMPH COUNT 1.9 /CUMM (1.2-3.4); ABSOLUTE MONOCYTE COUNT 0.7 /CUMM (0.10-0.60); BASOPHIL % 0.2 % (0.0-2.0); GRANULOCYTE % 70.6 % (42.2-75.2); HEMATOCRIT 34.1 % (37-47); MEAN CORPUSCULAR HGB CONC 32.8 G/DL (33.0-37.0); MEAN CORPUSCULAR VOLUME 94.7 FL (81.0-99.0); MEAN PLATELET VOLUME 9.6 FL (7.4-10.4); PLATELET COUNT 264 /CUMM (130-400); RBC DISTRIBUTION WIDTH 15.9 % (11.5-14.5); WHITE BLOOD CELL COUNT 10.1 /CUMM (4.8-10.8)
--- NOTE | 2017-02-09 14:40 | PN- Housestaff ---
Subjective Follow-up For: Left lower extremity ulcer. Shortness of breath. Acute renal failure. Subjective: Saw patient at bedside this a.m. She was getting a nebulizer treatment. She stated she felt much better. Her left lower extremity pain is greatly decreasing. She stated that she didn't feel shortness of breath as previously. Review of Systems Constitutional: Denies: chills, fever, weakness. EENTM: Reports: no symptoms. Cardiovascular: Reports: no symptoms. Respiratory: Reports: no symptoms. Gastrointestinal: Reports: no symptoms. Genitourinary: Reports: no symptoms. Musculoskeletal: Reports: muscle pain. Skin: Reports: no symptoms. Objective Last 24 Hrs of Vital Signs/I&O Vital Signs Date Time Temp Pulse Resp B/P B/P Pulse O2 O2 Flow FiO2 Mean Ox Delivery Rate 02/09 0838 93 Nasal 2.5L Cannula 02/09 0653 98.5 90 20 161/88 92 02/09 0000 Nasal 3.0L Cannula 02/09 0000 95 Nasal 3.0L Cannula 02/08 2259 98.7 78 18 140/80 94 Nasal 3.0L Cannula 02/08 1950 95 Nasal 2.5L Cannula 02/08 1600 Nasal 3.0L Cannula 02/08 1600 93 Nasal 3.0L Cannula 02/08 1450 98.9 90 22 148/80 94 Nasal 3.0L Cannula Intake & Output 02/09 1600 02/09 0800 02/09 0000 Intake Total 130 1100 Output Total 400 Balance 130 700 Intake, IV 130 100 Intake, Oral 1000 Output, Urine 400 Physical Exam General Appearance: Alert, Oriented X3, Cooperative, No Acute Distress Skin: LLE lesion is much improved. Lesion less erythematous above dressing. HEENT: Atraumatic, PERRLA, EOMI Neck: Supple Cardiovascular: Regular Rate, Normal S1, Normal S2 Lungs: Wheezes bialt Abdomen: Soft, No Tenderness Current Medications: Current Medications Sig/Pop Start time Last Medication Dose Route Stop Time Status Admin Acetaminophen 650 MG .STK-MED ONE 02/08 2026 DC PO 02/08 2027 Acetaminophen 650 MG Q4P PRN 02/03 1130 AC 02/08 PO 2026 Albuterol Sulfate 3 ML TID 02/01 1046 AC 02/09 INH 1306 Albuterol Sulfate 2 PUF Q4 HRS NEEDED PRN 01/31 2345 AC INH Ampicillin Sodium/ 3,000 MG Q8H 02/07 0130 AC 02/09 Sulbactam Sodium IV 0839 Sodium Chloride 100 ML Atorvastatin Calcium 10 MG DAILY 02/01 1000 AC 02/09 PO 0840 Budesonide/ 2 PUF BID 02/01 1000 AC 02/09 Formoterol Fumarate INH 0841 Heparin Sodium 5,000 UNIT Q8 02/03 1400 AC 02/09 (Porcine) SC 0524 Ipratropium [place] 2.5 ML TID 02/01 1047 AC 02/09 INH 1306 Lactobacillus 1 CAP DAILY 02/05 1000 AC 02/09 Acidophilus PO 0840 Methyl Salicylate 1 EYAD Q6-PRN PRN 02/02 1200 AC 02/09 TOP 0839 Nystatin 1 EYAD TID PRN 02/01 1415 AC TOP Omeprazole 40 MG DAILY AC 02/01 0700 AC 02/09 PO 0523 Oxycodone/ 2 TAB Q6P PRN 01/31 2345 AC 02/02 Acetaminophen PO 2318 Zolpidem Tartrate 5 MG ONCE ONE 02/08 2245 DC 02/08 PO 02/08 2246 2255 Zolpidem Tartrate 5 MG AT BEDTIME 02/03 2200 AC 02/08 PO 0206 Last 24 Hrs of Lab/Fernando Results Last 24 Hrs of Labs/Mics: Laboratory Tests 02/09/17 0615: Anion Gap 12, Estimated GFR 25 L, BUN/Creatinine Ratio 9.0, CBC w Diff NO MAN DIFF REQ, RBC 3.60 L, MCV 94.7, MCH 31.0, RDW 15.9 H, MPV 9.6, Gran % 70.6, Lymphocytes % 18.8 L, Monocytes % 7.4, Eosinophils % 3.0, Basophils % 0.2, Absolute Granulocytes 7.1 H, Absolute Lymphocytes 1.9, Absolute Monocytes 0.7 H, Absolute Eosinophils 0.3, Absolute Basophils 0, PUBS MCHC 32.8 L Assessment/Plan Assessment: Ms. Platt is a 66 year old female with PMH GERD, asthma, morbid obesity, previous strep A and staph aureus cellulitis and non-healing left leg ulcer who presents with a one day history of left lower extremity erythema, swelling and non-healing ulcer. She also noted decreased appetite, subjective fever, chills and shortness of breath with cough. Patient was initially admitted to the ICU and on 02/01 was transferred to once Nec fasc was ruled out. PLAN 1. Sepsis secondary to left lower extremity cellulitis: Pt remained afebrile. She states her LE does feel improved. Initial Lower Extremity CT: Subcutaneous edema. No focal fluid collection or abscess. Culture showing moderate growth of B-group Strep A. Pt has hx of strep and staph cellulitis. Bone scan not indicative of osteomyelitis. * On Unasyn. (Total: Day 10 of antibiotics). * Previously she got 5 days of IV clindamycin (Started on 01/31/2017). Vanco given for 3 days; (01/31/2017--> 02/02/2017) Switched to Ampicillin on 2016. Dose frequency increased on 02/05/2017 * Lower extremity doppler is negative for clot * Consult w/ Dr. Hernandez as he sees patient outpatient for non-healing ulcers * Elevate legs * Jaeger culture, monitor for fevers. * Plastics following. Thank you for recs. Pt will follow up on out pt basis. Possible consideration of skin graft. 2. ARF: On 02/03 pt's Cr noted to go from 1.2-->2-->2.2-->2.1-->2.0-->2.0. She recieved contrast for imaging; in addition to Vancomycin administration. DDX: Contrast induced nephropathy vs AIN vs. ATN. Renal US negative for obstruction. ARF likely combination of sepsis, LE etc. * Thank you nephrology consult * We D/C IVF given worsening pulm fnxn * Monitor BEP and Cr closely * Switched Lovenox to SQ Heparin 3. Acute hypoxic respiratory failure in the setting of asthma/COPD: She has recieved aggressive fluids (100cc/hr for >48 hrs) 2/2 to ARF and LE. Pt has Wells score < 2. Initially could not obtain CT PE given worsening renal function. V/Q scan showing low prob of PE. Unlikely PE. Likely fluid overload superimposed on her baseline poor pulm status. She has extensive smoking history , is obese and has noted apnea spells during sleep. Pulmonary concern for COPD/ TAYLOR/Tracheomalacia. * Provide supplemental O2 to maintain O2 sats >92% * [facility] evaluation * No systemic steroids for now * Started symbicort 02/02/2017 * She will require outpatinent sleep study and likely CPAP 4. GERD * Continue omeprazole daily 5. HLD * Continue statin 6. Goiter - CT neck done, recc CT/PET for enlarged supraclavicular lymph node DNR/DNI (will accept a central line) Heart Healthy Diet DVTP: [place] lovenox Problem List: 1. Fall 2. Abrasion 3. Rib fracture Pain Ratin Pain Location: none Pain Goal: Remain pain free Pain Plan: none Tomorrow's Labs & Rationales: cbc bep inr DVT/Prophylaxis: mechanical, pharmacological
[2017-02-09 22:25] VITALS: BP 168/98
[2017-02-10 06:37] VITALS: BP 149/67
[2017-02-10 07:57] LABS: ABSOLUTE BASOPHIL COUNT 0 /CUMM (0.0-0.2); ABSOLUTE EOSINOPHIL COUNT 0.2 /CUMM (0.0-0.7); ABSOLUTE GRANULOCYTE CT 7.6 /CUMM (1.4-6.5); ABSOLUTE LYMPH COUNT 2.2 /CUMM (1.2-3.4); ABSOLUTE MONOCYTE COUNT 0.7 /CUMM (0.10-0.60); BASOPHIL % 0.3 % (0.0-2.0); EOSINOPHIL % 2.2 % (0-5); GRANULOCYTE % 70.4 % (42.2-75.2); HEMATOCRIT 31.9 % (37-47); MEAN CORPUSCULAR HGB 31.2 PG (27.0-31.0); MEAN CORPUSCULAR HGB CONC 33.3 G/DL (33.0-37.0); MEAN CORPUSCULAR VOLUME 93.7 FL (81.0-99.0); MEAN PLATELET VOLUME 9.3 FL (7.4-10.4); PLATELET COUNT 276 /CUMM (130-400); RBC DISTRIBUTION WIDTH 15.6 % (11.5-14.5); WHITE BLOOD CELL COUNT 10.8 /CUMM (4.8-10.8)
--- NOTE | 2017-02-10 08:19 | PN- Wound Care ---
Subjective Subjective: Patient feels significantly improved with respect to left lower extremity ulcers Objective Vital Signs and I&Os Vital Signs Result Date Time Pulse Ox 91 02/10 637 B/P 149/67 02/10 637 Temp 98.5 02/10 637 Pulse 85 02/10 637 Resp 20 02/10 637 O2 Delivery Nasal Cannula 02/10 O2 Flow Rate 3.0L 02/10 0000 Intake & Output 02/10 0000 02/09 1600 02/09 0800 Intake Total 480 2400 130 Output Total Balance 480 2400 130 Intake, IV 120 130 Intake, Oral 480 2280 Number 0 Bowel Movements Left lower extremity venous ankle ulcer is almost healed there is no drainage. The left blister is healed except for a small open area approximately 1 x 1 cm. The left anterior ulcer is healing nicely with minimal drainage. Erythema is for the most part resolved Impression/Plan Impression/Plan Impression/Plan: 66-year-old woman with chronic venous stasis ulcers has improving strep soft tissue infection. Wounds are improving with antibiotics and leg elevation.. Continue aggressive leg elevation daily wound cleansing and Xeroform dressings. Patient has been encouraged to continue aggressive leg elevation after discharge as her wounds are healing nicely and she has failed outpatient compression
--- NOTE | 2017-02-10 08:30 | PN- Housestaff ---
TARAN RODRIGUES,AMY 02/10/17 0830: Subjective Follow-up For: sob cellulitis Subjective: Saw patient at bedside this a.m. She states she feels much better. She looks better. No acute overnight events. She remained afebrile. Review of Systems Constitutional: Denies: chills, fever, malaise, weakness. EENTM: Reports: no symptoms. Cardiovascular: Denies: chest pain, edema. Respiratory: Reports: no symptoms. Gastrointestinal: Denies: abdominal pain, diarrhea. Genitourinary: Reports: no symptoms. Musculoskeletal: Reports: muscle pain. Skin: Reports: no symptoms. Objective Last 24 Hrs of Vital Signs/I&O Vital Signs Date Time Temp Pulse Resp B/P B/P Pulse O2 O2 Flow FiO2 Mean Ox Delivery Rate 02/10 1441 98.7 80 20 140/88 94 Nasal 2.5L Cannula 02/10 1429 98.7 80 18 141/87 94 Nasal 2.5L Cannula 02/10 0838 91 Nasal 2.5L Cannula 02/10 0800 94 Nasal 3.0L Cannula 02/10 0800 94 Nasal 3.0L Cannula 02/10 0637 98.5 85 20 149/67 91 05/08 0000 Nasal 3.0L Cannula 02/10 0000 Nasal 3.0L Cannula 02/09 2225 99.0 81 20 168/98 93 Nasal 2.5L Cannula 02/09 1900 91 Nasal 2.5L Cannula Intake & Output 02/10 1600 /08 0800 05/08 0000 Intake Total 950 480 480 Output Total 1050 Balance -100 480 480 Intake, IV 150 Intake, Oral 800 480 480 Number 1 Bowel Movements Output, Urine 1050 Patient 122.47 kg Weight Weight Chair scale Measurement Method Physical Exam General Appearance: Alert, Oriented X3, Cooperative, No Acute Distress Skin: No Significant Lesion HEENT: Atraumatic, PERRLA, EOMI Neck: Supple Cardiovascular: Regular Rate, Normal S1, Normal S2 Lungs: Bilat wheezes improved but still audible. Abdomen: Soft, No Tenderness Neurological: Normal Speech Current Medications: Current Medications Sig/Pop Start time Last Medication Dose Route Stop Time Status Admin Acetaminophen 650 MG .STK-MED ONE 02/10 0328 DC PO 02/10 0329 Acetaminophen 650 MG Q4P PRN 02/03 1130 AC 02/10 PO 1458 Albuterol Sulfate 3 ML TID 02/01 1046 AC 02/10 INH 1308 Albuterol Sulfate 2 PUF Q4 HRS NEEDED PRN 01/31 2345 AC INH Amoxicillin/ 500 MG Q12 02/10 2200 AC Clavulanate Potassium PO Ampicillin Sodium/ 3,000 MG Q8H 02/07 0130 DC 02/10 Sulbactam Sodium IV 0933 Sodium Chloride 100 ML Atorvastatin Calcium 10 MG DAILY 02/01 1000 AC 02/10 PO 0930 Budesonide/ 2 PUF BID 02/01 1000 AC 02/10 Formoterol Fumarate INH 0930 Heparin Sodium 5,000 UNIT Q8 02/03 1400 AC 02/10 (Porcine) SC 1459 Ipratropium [place] 2.5 ML TID 02/01 1047 AC 02/10 INH 1308 Lactobacillus 1 CAP DAILY 02/05 1000 AC 02/10 Acidophilus PO 0930 Methyl Salicylate 1 EYAD Q6-PRN PRN 02/02 1200 AC 02/09 TOP 0839 Nystatin 1 EYAD TID PRN 02/01 1415 AC TOP Omeprazole 40 MG DAILY AC 02/01 0700 AC 02/10 PO 0548 Oxycodone/ 2 TAB Q6P PRN 01/31 2345 AC 02/02 Acetaminophen PO 2318 Patient Medication 1 ED .STK-MED ONE 02/10 1408 SC Teaching ED 02/10 1409 Zolpidem Tartrate 5 MG AT BEDTIME 02/03 220 AC 02/08 PO 0206 Last 24 Hrs of Lab/Fernando Results Last 24 Hrs of Labs/Mics: Laboratory Tests 02/10/17 0622: Anion Gap 7, Estimated GFR 28 L, BUN/Creatinine Ratio 9.4, CBC w Diff NO MAN DIFF REQ, RBC 3.40 L, MCV 93.7, MCH 31.2 H, RDW 15.6 H, MPV 9.3, Gran % 70.4, Lymphocytes % 20.2 L, Monocytes % 6.9, Eosinophils % 2.2, Basophils % 0.3, Absolute Granulocytes 7.6 H, Absolute Lymphocytes 2.2, Absolute Monocytes 0.7 H, Absolute Eosinophils 0.2, Absolute Basophils 0, PUBS MCHC 33.3 Assessment/Plan Assessment: Ms. Platt is a 66 year old female with PMH GERD, asthma, morbid obesity, previous strep A and staph aureus cellulitis and non-healing left leg ulcer who presents with a one day history of left lower extremity erythema, swelling and non-healing ulcer. She also noted decreased appetite, subjective fever, chills and shortness of breath with cough. Patient was initially admitted to the ICU and on 02/01 was transferred to once Nec fasc was ruled out. PLAN 1. Sepsis secondary to left lower extremity cellulitis: Pt remained afebrile. She states her LE does feel improved. Initial Lower Extremity CT: Subcutaneous edema. No focal fluid collection or abscess. Culture showing moderate growth of B-group Strep A. Pt has hx of strep and staph cellulitis. Bone scan not indicative of osteomyelitis. * PO Augmentin started on 02/10 for 2 more days * Previously she got 5 days of IV clindamycin (Started on 01/31/2017). Vanco given for 3 days; (01/31/2017--> 02/02/2017) Switched to Ampicillin on 2016. Dose frequency increased on 02/05/2017 * Lower extremity doppler is negative for clot * Consult w/ Dr. Hernandez as he sees patient outpatient for non-healing ulcers * Elevate legs * Jaeger culture, monitor for fevers. * Plastics following. Thank you for recs. Pt will follow up on out pt basis. Possible consideration of skin graft. 2. ARF: On 02/03 pt's Cr noted to go from 1.2-->2-->2.2-->2.1-->2.0-->2.0-->1.8. She recieved contrast for imaging; in addition to Vancomycin administration. DDX : Contrast induced nephropathy vs AIN vs. ATN. Renal US negative for obstruction. ARF likely combination of sepsis, LE etc. * Thank you nephrology consult * We D/C IVF given worsening pulm fnxn * Monitor BEP and Cr closely * Switched Lovenox to SQ Heparin 3. Acute hypoxic respiratory failure in the setting of asthma/COPD: She has recieved aggressive fluids (100cc/hr for >48 hrs) 2/2 to ARF and LE. Pt has Wells score < 2. Initially could not obtain CT PE given worsening renal function. V/Q scan showing low prob of PE. Unlikely PE. Likely fluid overload superimposed on her baseline poor pulm status. She has extensive smoking history , is obese and has noted apnea spells during sleep. Pulmonary concern for COPD/ TAYLOR/Tracheomalacia. * Provide supplemental O2 to maintain O2 sats >92% * Duonebs, TRC evaluation * No systemic steroids for now * Started symbicort 02/02/2017 * She will require outpatinent sleep study and likely CPAP 5. Thyroid nodule: * Per Thyroid US: Indeterminate lymph node, this may be reactive, neoplasm not excluded.Only a single node is identified on the images provided. CT with intravenous contrast or MRI with and without contrast could be performed to furtherevaluate if indicated clinically. * CT neck done, recc CT/PET for enlarged supraclavicular lymph node * Going for supraclavicular LN biopsy 02/10/2017 5. GERD * Continue omeprazole daily 6. HLD * Continue statin DNR/DNI (will accept a central line) Heart Healthy Diet DVTP: [place] lovenox Problem List: 1. Leg ulcer, left 2. Leukocytosis 3. Sepsis Pain Ratin Pain Location: CBC BEP Pain Goal: Remain pain free Pain Plan: NONE Tomorrow's Labs & Rationales: CBC BEP DVT/Prophylaxis: mechanical, pharmacological ROWDY CASTRO MD 02/10/17 1424: Attending MD Review Statement Attending Statement Attending Statement: examined this patient, agreed w/resident/PA/[employer], reviewed EMR data (avail), discussed with nursing, reviewed images, amended to note Attending Assessment/Plan: Ms. Platt has responded well to the change in antibiotics for her leg cellulitis/sepsis. Her WBC has normalized and she has remained afebrile for the last 24 hours. I am in agreement with Bryn Gardner MD that she may be changed to Augmentin and continued on antibiotic for another 3 days to complete her course. Continued management of her leg wounds can be done in an outpatient setting. Her renal function continues to slowly improve and she is asymptomatic as far as this is concerned. Her pulmonary status is also stable with her oxygen requirement now being 2.5 L via nasal cannula. She continues on DuoNeb treatments every 4 hours. Arrangements are being made to continue these therapies once the patient is discharged. CT scan in follow-up of her thyroid ultrasound has demonstrated multiple left subclavicular lymph nodes. I agree with Dr. Anaya that the should be biopsied prior to the patient discharge.
--- NOTE | 2017-02-10 08:35 | Patient Discharge Instructions ---
Discharge Instructions General Discharge Information You were seen/treated for: Cellulitis Thyroid lymph node Shortness of breath Watch for these problems: Fever Chills Shortness of breath Worsening of infection in leg such as redness, warmth, pain etc. Special Instructions: 1. Follow up wound care instructions 2. Follow up PCP regarding your thyroid nodule 3. Follow up Dr. Anaya regarding your difficulties breathing 4. Complete your antibiotic course 5. Follow up with plastic surgeon in one week for possible new graft Diet Continue normal diet: No Recommended Diet: Heart Healthy Activity Full Activity/No Limits: No Activity Self Limited: Yes Acute Coronary Syndrome Inclusion Criteria At DC or during hospital stay patient has or had the following: ACS DIAGNOSIS No Discharge Core Measures Meds if any: Prescribed or Continued at Discharge Meds if any: NOT Prescribed or Continued at Discharge Congestive Heart Failure Inclusion Criteria At DC or during hospital stay patient has or had the following: CHF DIAGNOSIS No Discharge Core Measures Meds if any: Prescribed or Continued at Discharge Meds if any: NOT Prescribed or Continued at Discharge Cerebrovascular accident Inclusion Criteria At DC or during hospital stay patient has or had the following: CVA/TIA Diagnosis No Discharge Core Measures Meds if any: Prescribed or Continued at Discharge Meds if any: NOT Prescribed or Continued at Discharge Venous thromboembolism Inclusion Criteria VTE Diagnosis No VTE Type NONE VTE Confirmed by (Test) NONE Discharge Core Measures - Per Current guidelines, there needs to be overlap - treatment for the first 5 days of Warfarin therapy. - If discharged on Warfarin prior to 5 days of - overlap therapy, the patient will need to be - assessed for post discharge needs including - *Post discharge parental anticoagulation - *Warfarin and/or parental anticoagulation education - *Follow up date to check INR post discharge At least 5 days overlap therapy as Inpatient No Meds if any: Prescribed or Continued at Discharge Note: Overlap Therapy is Warfarin and Anticoagulant Meds if any: NOT Prescribed or Continued at Discharge
--- NOTE | 2017-02-10 11:31 | NUR ---
NURSING NOTE: PT O2 SAT ON RA ON REST 86%. O2 SAT ON AMBULATION TO BSC ON RA 84%. O2 SAT ON REST ON 3L NC 94%, AND O2 SAT ON AMBULATION 91%. WILL CONTINUE TO MONITOR.
--- NOTE | 2017-02-10 13:28 | PN- Pulmonary ---
Subjective HPI/Critical Care Issues: Much better afebrile vss chest mild crackles Objective Current Medications: Current Medications Sig/Pop Start time Last Medication Dose Route Stop Time Status Admin Acetaminophen 650 MG .STK-MED ONE 02/10 0328 DC PO 02/10 0329 Acetaminophen 650 MG Q4P PRN 02/03 1130 AC 02/10 PO 1014 Albuterol Sulfate 3 ML TID 02/01 1046 AC 02/10 INH 1308 Albuterol Sulfate 2 PUF Q4 HRS NEEDED PRN 01/31 2345 AC INH Ampicillin Sodium/ 3,000 MG Q8H 02/07 0130 AC 02/10 Sulbactam Sodium IV 0933 Sodium Chloride 100 ML Atorvastatin Calcium 10 MG DAILY 02/01 1000 AC 02/10 PO 0930 Budesonide/ 2 PUF BID 02/01 1000 AC 02/10 Formoterol Fumarate INH 0930 Heparin Sodium 5,000 UNIT Q8 02/03 1400 AC 02/10 (Porcine) SC 0548 Ipratropium [place] 2.5 ML TID 02/01 1047 AC 02/10 INH 1308 Lactobacillus 1 CAP DAILY 02/05 1000 AC 02/10 Acidophilus PO 0930 Methyl Salicylate 1 EYAD Q6-PRN PRN 02/02 1200 AC 02/09 TOP 0839 Nystatin 1 EYAD TID PRN 02/01 1415 AC TOP Omeprazole 40 MG DAILY AC 02/01 0700 AC 02/10 PO 0548 Oxycodone/ 2 TAB Q6P PRN 01/31 2345 AC 02/02 Acetaminophen PO 2318 Zolpidem Tartrate 5 MG AT BEDTIME 02/03 2200 AC 02/08 PO 0206 Laboratory Tests 02/10 02/09 0622 0615 Chemistry Sodium (137 - 145 mmol/L) 143 146 H Potassium (3.5 - 5.1 mmol/L) 4.4 4.6 Chloride (98 - 107 mmol/L) 103 104 Carbon Dioxide (22 - 30 mmol/L) 32 H 30 Anion Gap (5 - 16) 7 12 BUN (7 - 17 mg/dL) 17 18 H Creatinine (0.5 - 1.0 mg/dL) 1.8 H 2.0 H Estimated GFR (>60 ml/min) 28 L 25 L BUN/Creatinine Ratio (7 - 25 %) 9.4 9.0 Hematology CBC w Diff NO MAN DIFF REQ NO MAN DIFF REQ WBC (4.8 - 10.8 /CUMM) 10.8 10.1 RBC (4.20 - 5.40 /CUMM) 3.40 L 3.60 L Hgb (12.0 - 16.0 G/DL) 10.6 L 11.2 L Hct (37 - 47 %) 31.9 L 34.1 L MCV (81.0 - 99.0 FL) 93.7 94.7 MCH (27.0 - 31.0 PG) 31.2 H 31.0 RDW (11.5 - 14.5 %) 15.6 H 15.9 H Plt Count (130 - 400 /CUMM) 276 264 MPV (7.4 - 10.4 FL) 9.3 9.6 Gran % (42.2 - 75.2 %) 70.4 70.6 Lymphocytes % (20.5 - 51.1 %) 20.2 L 18.8 L Monocytes % (1.7 - 9.3 %) 6.9 7.4 Eosinophils % (0 - 5 %) 2.2 3.0 Basophils % (0.0 - 2.0 %) 0.3 0.2 Absolute Granulocytes (1.4 - 6.5 /CUMM) 7.6 H 7.1 H Absolute Lymphocytes (1.2 - 3.4 /CUMM) 2.2 1.9 Absolute Monocytes (0.10 - 0.60 /CUMM) 0.7 H 0.7 H Absolute Eosinophils (0.0 - 0.7 /CUMM) 0.2 0.3 Absolute Basophils (0.0 - 0.2 /CUMM) 0 0 PUBS MCHC (33.0 - 37.0 G/DL) 33.3 32.8 L Vital Signs & I&O Last 24 Hrs of Vitals and I&O: Vital Signs Date Time Temp Pulse Resp B/P B/P Pulse O2 O2 Flow FiO2 Mean Ox Delivery Rate 02/10 838 91 Nasal 2.5L Cannula 02/11 800 94 Nasal 3.0L Cannula 02/11 800 94 Nasal 3.0L Cannula 02/10 637 98.5 85 20 149/67 91 02/10 0000 Nasal 3.0L Cannula 02/10 0000 Nasal 3.0L Cannula 02/095 99.0 81 20 168/98 93 Nasal 2.5L Cannula 02/09 1900 91 Nasal 2.5L Cannula 02/09 1600 Nasal 3.0L Cannula 02/09 1600 Nasal 3.0L Cannula Intake & Output 02/10 1600 02/10 0800 02/10 0000 Intake Total 480 480 Output Total Balance 480 480 Intake, Oral 480 480 Patient 270 lb Weight Weight Chair scale Measurement Method Impression/Plan Impression/Plan Impression/Plan: Well-developed well-nourished obese female, looks stated age, no apparent distress. HEENT: Atraumatic, extraocular motion intact Neck: Supple, no lymphadenopathy Respiratory: Mild increased respiratory rate and effort Heart: Tachycardic Abdomen: Obese Extremities: Right lower extremity benign Left lower extremity with severe erythema circumferentially bandaged leg Dorsal pedal pulses are intact 2+ Neuro: Alert and oriented x3 Psych: Mood affect normal, normal memory normal judgment. Lower extremity Doppler negative for DVT chest ct reviewed IMPRESSION: 1. No evidence of pleural effusion. 2. Pulmonary findings are most consistent with pulmonary edema. Some of the groundglass opacity areas appear more focal and nodular, example in the inferior aspect of the right upper lobe. Consider follow-up evaluation post treatment to document resolution of findings. 3. Bibasilar volume loss and dependent atelectasis seen. Superimposed bandlike area of atelectatic change in the right lower lobe is also noted. 4. Abnormal adenopathy is seen in the anterior superior mediastinum and in the lower left neck, incompletely imaged. Less likely, the finding in the left lower leg may be related to a thyroid mass. Further assessment with thyroid ultrasound and soft tissue neck ultrasound is recommended. 5. Cholelithiasis. Neck ct IMPRESSION: Left-sided lymphadenopathy in the neck primarily in the supraclavicular region. PET/CT may be helpful for further assessment of lymphadenopathy. IMPRESSION This is a lady with chronic lower extremity venous ulcer, chronic edema of the leg, morbid obesity, recent surgery to the lower extremity with wound VAC placement and graft done by Dr. Stone Stiles now comes in with * Improved Mild pulm edema and bilateral atx contributing to hypoxia improving * Left sided supraclavicular lymphadenopathy needs biopsy * Significant lower extremity left-sided cellulitis in a lady with chronic left sided venous insufficiency and peripheral vascular disease * Resolving Acute renal failure due to Prob contrast induce nephropathy needs follow up * Multiple antibiotic allergies including penicillin * Significant leukocytosis and fever improving * History of asthma with prob sig copd with more than 40 pack yr smoker with mild bronchospasm, now with hypoxemia probably related to VQ mismatch. 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
--- NOTE | 2017-02-10 14:02 | PN- Infect Dx ---
Subjective Subjective: Afebrile. She feels improved with no complaints at this time. Objective Last 24 Hrs of Vital Signs/I&O Vital Signs Date Time Temp Pulse Resp B/P B/P Pulse O2 O2 Flow FiO2 Mean Ox Delivery Rate 02/10 838 91 Nasal 2.5L Cannula 02/11 800 94 Nasal 3.0L Cannula 02/11 800 94 Nasal 3.0L Cannula 02/10 0637 98.5 85 20 149/67 91 02/10 0000 Nasal 3.0L Cannula 02/10 0000 Nasal 3.0L Cannula 02/09 2225 99.0 81 20 168/98 93 Nasal 2.5L Cannula 02/09 1900 91 Nasal 2.5L Cannula 02/09 1600 Nasal 3.0L Cannula 02/09 1600 Nasal 3.0L Cannula Intake & Output 02/10 0000 Intake Total 480 480 Output Total Balance 480 480 Intake, Oral 480 480 Patient 270 lb Weight Weight Chair scale Measurement Method Physical Exam Other Physical Findings: She appears comfortable in no acute distress Extremities decreased erythema of the left leg, with superficial ulcer on the medial aspect of the leg, mildly tender to palpation Results Last 24 Hours of Lab Results: Laboratory Tests 02/10 622 Chemistry Sodium (137 - 145 mmol/L) 143 Potassium (3.5 - 5.1 mmol/L) 4.4 Chloride (98 - 107 mmol/L) 103 Carbon Dioxide (22 - 30 mmol/L) 32 H Anion Gap (5 - 16) 7 BUN (7 - 17 mg/dL) 17 Creatinine (0.5 - 1.0 mg/dL) 1.8 H Estimated GFR (>60 ml/min) 28 L BUN/Creatinine Ratio (7 - 25 %) 9.4 Hematology CBC w Diff NO MAN DIFF REQ WBC (4.8 - 10.8 /CUMM) 10.8 RBC (4.20 - 5.40 /CUMM) 3.40 L Hgb (12.0 - 16.0 G/DL) 10.6 L Hct (37 - 47 %) 31.9 L MCV (81.0 - 99.0 FL) 93.7 MCH (27.0 - 31.0 PG) 31.2 H RDW (11.5 - 14.5 %) 15.6 H Plt Count (130 - 400 /CUMM) 276 MPV (7.4 - 10.4 FL) 9.3 Gran % (42.2 - 75.2 %) 70.4 Lymphocytes % (20.5 - 51.1 %) 20.2 L Monocytes % (1.7 - 9.3 %) 6.9 Eosinophils % (0 - 5 %) 2.2 Basophils % (0.0 - 2.0 %) 0.3 Absolute Granulocytes (1.4 - 6.5 /CUMM) 7.6 H Absolute Lymphocytes (1.2 - 3.4 /CUMM) 2.2 Absolute Monocytes (0.10 - 0.60 /CUMM) 0.7 H Absolute Eosinophils (0.0 - 0.7 /CUMM) 0.2 Absolute Basophils (0.0 - 0.2 /CUMM) 0 PUBS MCHC (33.0 - 37.0 G/DL) 33.3 Last 24 Hours of Fernando Results: No new cultures Assessment/Plan Impression: Stable on Unasyn, begun 4 days ago to cover Staph aureus in addition to the Group A strep that was isolated from her most recent superficial culture, now Day 10 of antibiotics for her left leg cellulitis following a biopsy of a nonhealing left leg ulcer on the day prior to admission. She remains afebrile with white blood cell count decreased since initiation of Unasyn. Suggestion: 1. Discontinue Unasyn and begin Augmentin 500 mg po every 12 hours for 3 more days
[2017-02-10 14:29] VITALS: BP 141/87
[2017-02-10] MEDS ORDERED: AUGMENTIN 500-1 EACH PO (14:34)
[2017-02-10 14:41] VITALS: BP 140/88
[2017-02-10 22:58] VITALS: BP 136/82
--- NOTE | 2017-02-11 01:11 | NUR ---
ALERT AND ORIENTED X 3. VITAL SIGNS STABLE. DENIES CHEST PAIN. + PULSES ON 2.5L OXYGEN VIA NASAL CANNULA. MEDICATION GIVEN FOR DISCOMFORT STEADY GAIT. LLE ELEVATED. PATIENT RESTING AT THIS TIME. WILL CONTINUE TO MONITOR
--- NOTE | 2017-02-11 04:14 | PN- Housestaff ---
SANJAY CRAMER 02/11/17 0414: Subjective Follow-up For: sob cellulitis Complaints: pain scale (0-10) Subjective: Patient was seen and examined this morning. She is alert awake and oriented to time place and person. No acute overnight events happened. She states she feels much better. She looks better. No acute overnight events. She remained afebrile. She is WAITING to get biopsy of left supraclavicular lymph node. Waiting to go home after the procedure. Vitals remained stable Review of Systems Constitutional: Reports: see HPI. Objective Last 24 Hrs of Vital Signs/I&O Vital Signs Date Time Temp Pulse Resp B/P B/P Pulse O2 O2 Flow FiO2 Mean Ox Delivery Rate 02/11 0554 99.3 87 20 132/78 93 Nasal 2.5L Cannula 02/10 2258 98.4 78 20 136/82 94 Nasal 2.5L Cannula 02/10 1945 93 Nasal 2.5L Cannula 02/10 1600 94 Nasal 2.5L Cannula 02/10 1600 94 Nasal 2.5L Cannula 02/10 1441 98.7 80 20 140/88 94 Nasal 2.5L Cannula 02/10 1429 98.7 80 18 141/87 94 Nasal 2.5L Cannula 02/10 0838 91 Nasal 2.5L Cannula 02/10 0800 94 Nasal 3.0L Cannula 02/10 0800 94 Nasal 3.0L Cannula 02/10 0637 98.5 85 20 149/67 91 Intake & Output 02/11 0800 05/09 0000 08 1600 Intake Total 500 950 Output Total 1200 1050 Balance -700 -100 Intake, IV 150 Intake, Oral 500 800 Number 1 Bowel Movements Output, Urine 1200 1050 Physical Exam General Appearance: Alert, Oriented X3, Cooperative, No Acute Distress Skin: No Rashes, No Breakdown HEENT: Atraumatic, PERRLA Neck: Supple, No JVD Lymphatic: Cervical nl Cardiovascular: Normal S1, Normal S2 Lungs: Normal Air Movement Abdomen: Normal Bowel Sounds, Soft, No Tenderness Extremities: No Clubbing, No Cyanosis, No Edema Vascular: Normal Pulses Current Medications: Current Medications Sig/Pop Start time Last Medication Dose Route Stop Time Status Admin Acetaminophen 650 MG .STK-MED ONE 02/10 1941 DC PO 02/10 1942 Acetaminophen 650 MG .STK-MED ONE 02/10 1457 DC PO 02/10 1458 Acetaminophen 650 MG .STK-MED ONE 02/10 1013 DC PO 02/10 1014 Acetaminophen 650 MG Q4P PRN 02/03 1130 AC 02/10 PO 1941 Albuterol Sulfate 3 ML TID 02/01 1046 AC 02/11 INH 0835 Albuterol Sulfate 2 PUF Q4 HRS NEEDED PRN 01/31 2345 AC INH Amoxicillin/ 500 MG Q12 02/10 2200 AC 02/10 Clavulanate Potassium PO 2201 Ampicillin Sodium/ 3,000 MG Q8H 02/07 0130 DC 02/10 Sulbactam Sodium IV 0933 Sodium Chloride 100 ML Atorvastatin Calcium 10 MG DAILY 02/01 1000 AC 02/10 PO 0930 Budesonide/ 2 PUF BID 02/01 1000 AC 02/10 Formoterol Fumarate INH 2201 Heparin Sodium 5,000 UNIT Q8 02/03 1400 AC 02/11 (Porcine) SC 0603 Ipratropium [place] 2.5 ML TID 02/01 1047 AC 02/11 INH 0835 Lactobacillus 1 CAP DAILY 02/05 1000 AC 02/10 Acidophilus PO 0930 Methyl Salicylate 1 EYAD Q6-PRN PRN 02/02 1200 AC 02/09 TOP 0839 Nystatin 1 EYAD TID PRN 02/01 1415 AC TOP Omeprazole 40 MG DAILY AC 02/01 0700 AC 02/11 PO 0602 Oxycodone/ 2 TAB Q6P PRN 01/31 2345 AC 02/02 Acetaminophen PO 2318 Patient Medication 1 ED .STK-MED ONE 02/10 1408 ME Teaching ED 02/10 1409 Zolpidem Tartrate 5 MG AT BEDTIME 02/03 2200 DC 02/10 PO 2201 Last 24 Hrs of Lab/Fernando Results Last 24 Hrs of Labs/Mics: Laboratory Tests 02/11/17 0620: Anion Gap 8, Estimated GFR 30 L, BUN/Creatinine Ratio 11.2, PT 11.7, INR 1.12, CBC w Diff NO MAN DIFF REQ, RBC 3.58 L, MCV 93.6, MCH 31.2 H, RDW 15.0 H, MPV 9.5, Gran % 69.2, Lymphocytes % 21.4, Monocytes % 6.7, Eosinophils % 2.4, Basophils % 0.3, Absolute Granulocytes 6.8 H, Absolute Lymphocytes 2.1, Absolute Monocytes 0.7 H, Absolute Eosinophils 0.2, Absolute Basophils 0, PUBS MCHC 33.3 Assessment/Plan Assessment: Ms. Platt is a 66 year old female with PMH GERD, asthma, morbid obesity, previous strep A and staph aureus cellulitis and non-healing left leg ulcer who presents with a one day history of left lower extremity erythema, swelling and non-healing ulcer. She also noted decreased appetite, subjective fever, chills and shortness of breath with cough. Patient was initially admitted to the ICU and on 02/01 was transferred to once Nec fasc was ruled out. PLAN 1. Sepsis secondary to left lower extremity cellulitis: Pt remained afebrile. She states her LE does feel improved. Initial Lower Extremity CT: Subcutaneous edema. No focal fluid collection or abscess. Culture showing moderate growth of B-group Strep A. Pt has hx of strep and staph cellulitis. Bone scan not indicative of osteomyelitis. * PO Augmentin started on 02/10 for 2 more days * Previously she got 5 days of IV clindamycin (Started on 01/31/2017). Vanco given for 3 days; (01/31/2017--> 02/02/2017) Switched to Ampicillin on 2016. Dose frequency increased on 02/05/2017 * Lower extremity doppler is negative for clot * Consulted w/ Dr. Hernandez as he sees patient outpatient for non-healing ulcers * Elevate legs * Jaeger culture, monitor for fevers. * Plastics following. Thank you for recs. Pt will follow up on out pt basis. Possible consideration of skin graft. 2. ARF: On 02/03 pt's Cr noted to go from 1.2-->2-->2.2-->2.1-->2.0-->2.0-->1.8. She recieved contrast for imaging; in addition to Vancomycin administration. DDX: Contrast induced nephropathy vs AIN vs. ATN. Renal US negative for obstruction. ARF likely combination of sepsis, LE etc. * Thank you nephrology consult * We D/C IVF given worsening pulm fnxn * Monitor BEP and Cr closely * Switched Lovenox to SQ Heparin 3. Acute hypoxic respiratory failure in the setting of asthma/COPD: She has recieved aggressive fluids (100cc/hr for >48 hrs) 2/2 to ARF and LE. Pt has Wells score < 2. Initially could not obtain CT for PE given worsening renal function. V/Q scan showing low prob of PE. Unlikely PE. Likely fluid overload superimposed on her baseline poor pulm status. She has extensive smoking history, is obese and has noted apnea spells during sleep. Pulmonary concern for COPD/TAYLOR/Tracheomalacia. * Provide supplemental O2 to maintain O2 sats >92% * Duonebs, * TRC evaluation * No systemic steroids for now * Started symbicort 02/02/2017 * She will require outpatinent sleep study and likely CPAP 5. Thyroid nodule: * Per Thyroid US: Indeterminate lymph node, this may be reactive, neoplasm not excluded.Only a single node is identified on the images provided. CT with intravenous contrast or MRI with and without contrast could be performed to furtherevaluate if indicated clinically. * CT neck done, recc CT/PET for enlarged supraclavicular lymph node * Going for supraclavicular LN biopsy 02/11/2017 5. GERD * Continue omeprazole daily 6. HLD * Continue statin DNR/DNI (will accept a central line) Heart Healthy Diet DVTP: SC lovenox Problem List: 1. Cellulitis Pain Ratin Pain Location: left leg Pain Goal: Remain pain free Pain Plan: tylinol Tomorrow's Labs & Rationales: cbc and bep RAMANDEEP ERNEE MD 02/11/17 1636: Objective Last 24 Hrs of Vital Signs/I&O Vital Signs Date Time Temp Pulse Resp B/P B/P Pulse O2 O2 Flow FiO2 Mean Ox Delivery Rate 02/11 1555 92 Nasal 2.5L Cannula 02/11 1555 92 Nasal 2.5L Cannula 02/11 1554 98.0 79 20 132/78 92 Nasal 2.5L Cannula 02/11 1245 98.3 66 18 116/60 96 Room Air Room Air 02/11 1201 98.2 18 22 128/76 92 Nasal 3.0L Cannula 02/11 0858 91 Nasal 2.5L Cannula 02/11 0554 99.3 87 20 132/78 93 Nasal 2.5L Cannula 02/11 0000 Nasal 2.5L Cannula 02/11 0000 93 Nasal 2.5L Cannula 02/108 98.4 78 20 136/82 94 Nasal 2.5L Cannula 02/10 1945 93 Nasal 2.5L Cannula Intake & Output 02/11 1600 02/11 0800 02/11 0000 Intake Total 120 500 Output Total 0464 672 5582 Balance -880 -900 -700 Intake, Oral 120 500 Number 1 Bowel Movements Output, Urine 8270 485 9811 Patient 268 lb Weight Attending MD Review Statement Attending Statement Attending MD Statement: examined this patient, discuss w/resident/PA/WHEEL AND AXLE INSPECTOR, agreed w/resident/PA/WHEEL AND AXLE INSPECTOR, reviewed EMR data (avail), discussed with nursing, discussed with case mgmt, amended to note Attending Assessment/Plan: Ms. Platt has returned post her ultrasound-guided subclavicular lymph node biopsies. She states she is comfortable denies shortness of breath but does note some leg pain. She remains afebrile with a MAXIMUM TEMPERATURE of 99.3. Her WBC had decreased to below 10,000. Her creatinine has further decreased to 1.8. Her physical exam remains unchanged. At this point he is stable for discharge. She will be discharged with home oxygen and a nebulizer machine. She will complete an oral course of antibiotics over the next 2 days. Follow-up will be arranged within 2 weeks and she will also follow-up with Drs. Gibson and Erick concerning her leg wound. As suggested by Dr. Gibson aggressive elevation of her left lower extremity should be put in place.
[2017-02-11 05:54] VITALS: BP 132/78
[2017-02-11 08:15] LABS: ABSOLUTE BASOPHIL COUNT 0 /CUMM (0.0-0.2); ABSOLUTE EOSINOPHIL COUNT 0.2 /CUMM (0.0-0.7); ABSOLUTE GRANULOCYTE CT 6.8 /CUMM (1.4-6.5); ABSOLUTE LYMPH COUNT 2.1 /CUMM (1.2-3.4); ABSOLUTE MONOCYTE COUNT 0.7 /CUMM (0.10-0.60); BASOPHIL % 0.3 % (0.0-2.0); EOSINOPHIL % 2.4 % (0-5); GRANULOCYTE % 69.2 % (42.2-75.2); HEMATOCRIT 33.5 % (37-47); MEAN CORPUSCULAR HGB 31.2 PG (27.0-31.0); MEAN CORPUSCULAR HGB CONC 33.3 G/DL (33.0-37.0); MEAN CORPUSCULAR VOLUME 93.6 FL (81.0-99.0); MEAN PLATELET VOLUME 9.5 FL (7.4-10.4); PLATELET COUNT 278 /CUMM (130-400); RED BLOOD CELL CT 3.58 /CUMM (4.20-5.40); WHITE BLOOD CELL COUNT 9.8 /CUMM (4.8-10.8)
[2017-02-11 08:35] LABS: PT 11.7 SEC (9.4-12.5)
--- NOTE | 2017-02-11 08:55 | PN- Wound Care ---
Subjective Subjective: Patient continues to have localized pain in area of prior blistering. Objective Vital Signs and I&Os Vital Signs Result Date Time Pulse Ox 93 02/11 554 B/P 132/78 02/11 554 O2 Delivery Nasal Cannula 02/11 554 O2 Flow Rate 2.5L 02/11 554 Temp 99.3 02/11 554 Pulse 87 02/11 554 Resp 20 02/11 554 Intake & Output 02/11 0000 02/10 1600 02/10 0800 Intake Total 500 950 480 Output Total 1200 1050 Balance -700 -100 480 Intake, IV 150 Intake, Oral 500 800 480 Number 1 Bowel Movements Output, Urine 1200 1050 Patient 270 lb Weight Weight Chair scale Measurement Method Left medial ankle ulcer has no drainage and is almost healed left anterior leg ulcer continues to have areas of yellow fill but minimal drainage the left upper area of blistering has several small blisters present and a full-thickness wound measuring approximately 1.2 x 1.2 cm Impression/Plan Impression/Plan Impression/Plan: 66-year-old woman with chronic venous stasis ulcers has improving strep soft tissue infection. Wounds are improving with antibiotics and leg elevation.. Continue aggressive leg elevation daily wound cleansing and Xeroform dressings. Patient has been encouraged to continue aggressive leg elevation after discharge as her wounds are healing nicely and she has failed outpatient compression. Complete course of antibiotics follow-up in wound care center at weeks and
--- NOTE | 2017-02-11 11:17 | PN- Pulmonary ---
Subjective HPI/Critical Care Issues: Patient was seen and examined this morning. She is alert awake and oriented to time place and person. No acute overnight events happened. She states she feels much better. She looks better. No acute overnight events. She remained afebrile. She is WAITING to get biopsy of left supraclavicular lymph node. Waiting to go home after the procedure. Vitals remained stable Objective Current Medications: Current Medications Sig/Pop Start time Last Medication Dose Route Stop Time Status Admin Acetaminophen 650 MG .STK-MED ONE 02/10 1941 DC PO 02/10 194 Acetaminophen 650 MG .STK-MED ONE 02/10 1457 DC PO 02/10 1458 Acetaminophen 650 MG Q4P PRN 02/03 1130 AC 02/10 PO 1941 Albuterol Sulfate 3 ML TID 02/01 1046 AC 02/11 INH 0835 Albuterol Sulfate 2 PUF Q4 HRS NEEDED PRN 01/31 2345 AC INH Amoxicillin/ 500 MG Q12 02/10 2200 AC 02/11 Clavulanate Potassium PO 1046 Ampicillin Sodium/ 3,000 MG Q8H 02/07 0130 DC 02/10 Sulbactam Sodium IV 0933 Sodium Chloride 100 ML Atorvastatin Calcium 10 MG DAILY 02/01 1000 AC 02/11 PO 1046 Budesonide/ 2 PUF BID 02/01 1000 AC 02/11 Formoterol Fumarate INH 1045 Heparin Sodium 5,000 UNIT Q8 02/03 1400 AC 02/11 (Porcine) SC 0603 Ipratropium [place] 2.5 ML TID 02/01 1047 AC 02/11 INH 0835 Lactobacillus 1 CAP DAILY 02/05 1000 AC 02/11 Acidophilus PO 1046 Methyl Salicylate 1 EYAD Q6-PRN PRN 02/02 1200 AC 02/09 TOP 0839 Nystatin 1 EYAD TID PRN 02/01 1415 AC TOP Omeprazole 40 MG DAILY AC 02/01 0700 AC 02/11 PO 0602 Oxycodone/ 2 TAB Q6P PRN 01/31 2345 AC 02/02 Acetaminophen PO 2318 Patient Medication 1 ED .STK-MED ONE 02/10 1408 DC Teaching ED 02/10 1409 Zolpidem Tartrate 5 MG AT BEDTIME 02/03 2200 DC 02/10 PO 2201 Vital Signs & I&O Last 24 Hrs of Vitals and I&O: Vital Signs Date Time Temp Pulse Resp B/P B/P Pulse O2 O2 Flow FiO2 Mean Ox Delivery Rate 02/12 0858 91 Nasal 2.5L Cannula 02/11 0554 99.3 87 20 132/78 93 Nasal 2.5L Cannula 02/11 0000 Nasal 2.5L Cannula 02/11 0000 93 Nasal 2.5L Cannula 02/10 2258 98.4 78 20 136/82 94 Nasal 2.5L Cannula 02/10 1945 93 Nasal 2.5L Cannula 02/11 1600 94 Nasal 2.5L Cannula 02/10 1600 94 Nasal 2.5L Cannula 02/10 1441 98.7 80 20 140/88 94 Nasal 2.5L Cannula 02/10 1429 98.7 80 18 141/87 94 Nasal 2.5L Cannula Intake & Output 02/11 0800 02/11 0000 Intake Total 500 Output Total 900 1200 Balance -900 -700 Intake, Oral 500 Number 1 Bowel Movements Output, Urine 900 1200 Patient 268 lb Weight Laboratory Tests 02/11 02/10 0620 0622 Chemistry Sodium (137 - 145 mmol/L) 141 143 Potassium (3.5 - 5.1 mmol/L) 4.3 4.4 Chloride (98 - 107 mmol/L) 103 103 Carbon Dioxide (22 - 30 mmol/L) 31 H 32 H Anion Gap (5 - 16) 8 7 BUN (7 - 17 mg/dL) 19 H 17 Creatinine (0.5 - 1.0 mg/dL) 1.7 H 1.8 H Estimated GFR (>60 ml/min) 30 L 28 L BUN/Creatinine Ratio (7 - 25 %) 11.2 9.4 Coagulation PT (9.4 - 12.5 SEC) 11.7 INR (0.90 - 1.19) 1.12 Hematology CBC w Diff NO MAN DIFF REQ NO MAN DIFF REQ WBC (4.8 - 10.8 /CUMM) 9.8 10.8 RBC (4.20 - 5.40 /CUMM) 3.58 L 3.40 L Hgb (12.0 - 16.0 G/DL) 11.1 L 10.6 L Hct (37 - 47 %) 33.5 L 31.9 L MCV (81.0 - 99.0 FL) 93.6 93.7 MCH (27.0 - 31.0 PG) 31.2 H 31.2 H RDW (11.5 - 14.5 %) 15.0 H 15.6 H Plt Count (130 - 400 /CUMM) 278 276 MPV (7.4 - 10.4 FL) 9.5 9.3 Gran % (42.2 - 75.2 %) 69.2 70.4 Lymphocytes % (20.5 - 51.1 %) 21.4 20.2 L Monocytes % (1.7 - 9.3 %) 6.7 6.9 Eosinophils % (0 - 5 %) 2.4 2.2 Basophils % (0.0 - 2.0 %) 0.3 0.3 Absolute Granulocytes (1.4 - 6.5 /CUMM) 6.8 H 7.6 H Absolute Lymphocytes (1.2 - 3.4 /CUMM) 2.1 2.2 Absolute Monocytes (0.10 - 0.60 /CUMM) 0.7 H 0.7 H Absolute Eosinophils (0.0 - 0.7 /CUMM) 0.2 0.2 Absolute Basophils (0.0 - 0.2 /CUMM) 0 0 PUBS MCHC (33.0 - 37.0 G/DL) 33.3 33.3 Impression/Plan Impression/Plan Impression/Plan: Well-developed well-nourished obese female, looks stated age, no apparent distress. HEENT: Atraumatic, extraocular motion intact Neck: Supple, no lymphadenopathy Respiratory: Mild increased respiratory rate and effort Heart: Tachycardic Abdomen: Obese Extremities: Right lower extremity benign Left lower extremity with severe erythema circumferentially bandaged leg Dorsal pedal pulses are intact 2+ Neuro: Alert and oriented x3 Psych: Mood affect normal, normal memory normal judgment. Lower extremity Doppler negative for DVT chest ct reviewed IMPRESSION: 1. No evidence of pleural effusion. 2. Pulmonary findings are most consistent with pulmonary edema. Some of the groundglass opacity areas appear more focal and nodular, example in the inferior aspect of the right upper lobe. Consider follow-up evaluation post treatment to document resolution of findings. 3. Bibasilar volume loss and dependent atelectasis seen. Superimposed bandlike area of atelectatic change in the right lower lobe is also noted. 4. Abnormal adenopathy is seen in the anterior superior mediastinum and in the lower left neck, incompletely imaged. Less likely, the finding in the left lower leg may be related to a thyroid mass. Further assessment with thyroid ultrasound and soft tissue neck ultrasound is recommended. 5. Cholelithiasis. Neck ct IMPRESSION: Left-sided lymphadenopathy in the neck primarily in the supraclavicular region. PET/CT may be helpful for further assessment of lymphadenopathy. IMPRESSION This is a lady with chronic lower extremity venous ulcer, chronic edema of the leg, morbid obesity, recent surgery to the lower extremity with wound VAC placement and graft done by Dr. Stone Stiles now comes in with * Improved Mild pulm edema and bilateral atx contributing to hypoxia improving * Left sided supraclavicular lymphadenopathy needs biopsy * Significant lower extremity left-sided cellulitis in a lady with chronic left sided venous insufficiency and peripheral vascular disease * Resolving Acute renal failure due to Prob contrast induce nephropathy needs follow up * Multiple antibiotic allergies including penicillin * Significant leukocytosis and fever improving * History of asthma with prob sig copd with more than 40 pack yr smoker with mild bronchospasm, now with hypoxemia probably related to VQ mismatch. 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
[2017-02-11] MEDS ORDERED: IPRATROPIU0.2 MG/1 M INH (11:54)
[2017-02-11] MEDS ORDERED: SYMBICORT 16010.2 GM INH (11:54)
[2017-02-11 12:01] VITALS: BP 128/76
[2017-02-11 12:45] VITALS: BP 116/60
[2017-02-11] MEDS ORDERED: AUGMENTIN 500-1 EACH PO (14:14)
[2017-02-11 15:54] VITALS: BP 132/78
--- NOTE | 2017-02-11 18:06 | ULTRASOUND REPORT ---
PROCEDURE: US GUIDED CORE NEEDLE BIOPSY OF A LEFT CERVICAL (SUPRACLAVICULAR) LYMPH NODE CLINICAL INFORMATION: 66-year-old patient presenting with stridor. Ultrasound and CT of the neck demonstrated the presence of multiple enlarged left cervical lymph nodes primarily in the supraclavicular region. COMPARISON: Ultrasound of the neck dated 02/06/2017, CT of the neck dated 02/07/2017. SOLUTION DIRECTOR: Cuauhtemoc Shepard M.D. DESCRIPTION: Informed consent was obtained from the patient prior to the procedure. During this process, the procedure and potential alternatives was explained, along with the intended outcome and benefits. The risks of the procedure, as well as the risk of not doing the procedure, were discussed. The patient was given the opportunity to ask questions regarding the procedure and appeared competent to make medical decisions. A signed consent form which documents this discussion was placed in the medical record. The patient's prior imaging studies were reviewed. A sonographic survey was performed of the left neck for localization of a target lymph node with a safe window. A 1.0 x 2.3 cm lymph node was identified in the supraclavicular region. The overlying soft tissues were sterilely prepped and draped. Maximum sterile barrier technique was maintained throughout the procedure. Generous local anesthesia was administered using a 50-50 percent mixture of 1% lidocaine and 0.5% bupivacaine. A small herminio was made in the skin and a 19-gauge guiding needle was introduced under sonographic guidance to the periphery of the target lymph node. Using coaxial technique, a total of nine 20-gauge core biopsies were obtained of the target lymph node under direct sonographic visualization. 3 cores were sent for culture including bacterial, fungal, and mycobacteria, 3 cores were submitted in buffered formalin for histopathology, and 3 cores were submitted in RPMI solution for flow cytometry. Sonographic images of the biopsy site was performed after removal of the needles with no evidence of a hematoma or other bleeding complication. A sterile dressing was placed. The patient tolerated the procedure well. There was no evidence complications. IMPRESSION: Multiple 20-gauge core biopsies performed of a left supraclavicular lymph node under sonographic guidance without evidence of complications. Core specimens sent for culture, histopathology, and flow cytometry.
--- NOTE | 2017-02-11 18:09 | NUR ---
NURSING NOTE: PT YUDY DINNER AFTER US GUIDED BIOPSY AND WAITED 1 HR AFTER EATING FOR DISCHARGE. DISCHARGE INSTRUCTIONS AND PRECRIPTIONS GIVEN WITH VERBAL UNDERSTANDING. PT DISCHARGED ON 2.5L NC W/O2 SAT OF 94.
== END 2017-02-11 18:14 | disposition home health service (06) | DRG 853 ==
LOC: ERH 15:57 → ERHI 19:23 → 2NB 19:23 → ENRESERV 21:00 → CANRESERV 21:00 → EDBEDREQ 21:53 → EDBEDREQTM 21:53 → ENRESERV 21:54 → ERHI 21:58 → CRI 23:20 → 2NB 23:20 → ENPENDDIS 02-11 16:09 → 2NB 02-11 18:14
PROVIDERS: Emergency Medicine; Internal Medicine; Internal Medicine Nephrology; Radiology Diagnostic Radiology; Student in an Organized Health Care Education/Training Program; ADMIT Internal Medicine Pulmonary Disease
PROC: 07B23ZX Excision of Left Neck Lymphatic, Percutaneous Approach, Diagnostic (ICD-10-PCS; principal; 2017-02-11)
DX: A41.9 Sepsis, unspecified organism (principal); J96.01 Acute respiratory failure with hypoxia; N17.0 Acute kidney failure with tubular necrosis; L03.116 Cellulitis of left lower limb; E87.1 Hypo-osmolality and hyponatremia; L97.229 Non-pressure chronic ulcer of left calf with unspecified severity; E66.01 Morbid (severe) obesity due to excess calories; J39.8 Other specified diseases of upper respiratory tract; I83.022 Varicose veins of left lower extremity with ulcer of calf; N14.2 Nephropathy induced by unspecified drug, medicament or biological substance; T50.905A Adverse effect of unspecified drugs, medicaments and biological substances, initial encounter; Z68.39 Body mass index [BMI] 39.0-39.9, adult; B95.1 Streptococcus, group B, as the cause of diseases classified elsewhere; B95.61 Methicillin susceptible Staphylococcus aureus infection as the cause of diseases classified elsewhere; J45.909 Unspecified asthma, uncomplicated; J44.9 Chronic obstructive pulmonary disease, unspecified; E04.1 Nontoxic single thyroid nodule; K21.9 Gastro-esophageal reflux disease without esophagitis; E78.5 Hyperlipidemia, unspecified; F17.200 Nicotine dependence, unspecified, uncomplicated; Z66 Do not resuscitate
CPT/HCPCS: 2NBSP; 84133; 84300; 87070; 87075; CCU; 36415; 76775; 78582; 81001; 82436; 82570; 87040; 87086; 87147; 88184; 88305; 93005; 93010; 93970; 96374; 97116-GO; 97161-GP; 97530-GO; A9540; A9558; J0290; J1200; J1644; J1650; J1940; J2405; J3101; J3370; J3490; J7040